=== PATIENT | male | born 1985 | race Caucasian/White ===

== ENCOUNTER 2019-03-20 20:14 | Emergency (ER) | payer OTHER ==
[~2019-03-20] VITALS: Ht 180.3 cm; Wt 102.3 kg
[2019-03-20 20:16] VITALS: BP 135/93
[2019-03-20] MEDS ORDERED: CLONI1TA PO (21:02)
[2019-03-20] MEDS ORDERED: TRUL10IN SC (21:02)
[2019-03-20] MEDS ORDERED: SERT-141 PO (21:02)
[2019-03-20] MEDS ORDERED: METF-699 PO (21:02)
[2019-03-20] MEDS ORDERED: AMLO25TA PO (21:02)
[2019-03-20] MEDS ORDERED: ASPI81TA85 PO (21:02)
[2019-03-20] MEDS ORDERED: FENO134C PO (21:02)
[2019-03-20] MEDS ORDERED: LISI-538 PO (21:02)
[2019-03-20] MEDS ORDERED: BASA100I SC (21:02)
[2019-03-20] MEDS ORDERED: GABA-845 PO (21:02)
[2019-03-20] MEDS ORDERED: TROPICAMIDE 0.5% OPHTH SOLN 15 ML OS ONE (21:15)
[2019-03-20] MEDS ORDERED: TETRACAINE 0.5% OPHTH SOLN 4ML OS ONE (21:15)
== END 2019-03-20 22:18 | disposition home or self-care (01) ==
LOC: M ED 20:14
DX: H53.9 Unspecified visual disturbance (principal); H43.9 Unspecified disorder of vitreous body; E11.319 Type 2 diabetes mellitus with unspecified diabetic retinopathy without macular edema; I10 Essential (primary) hypertension; E78.5 Hyperlipidemia, unspecified; Z97.0 Presence of artificial eye; Z88.8 Allergy status to other drugs, medicaments and biological substances; Z79.899 Other long term (current) drug therapy; Z79.4 Long term (current) use of insulin; Z79.82 Long term (current) use of aspirin

== ENCOUNTER → 2019-04-22 | Outpatient (REF) | payer OTHER, MEDICAID ==
[~2019-04-22] MED LIST: AMLO25TA PO; ASPI81TA85 PO; BASA100I SC; CLONI1TA PO; FENO134C PO; GABA-845 PO; LISI-538 PO; METF-699 PO; SERT-141 PO; TRUL10IN SC
[2019-04-22 11:37] LABS: BASO # 0.1 10^3/uL (0.0-0.2); BASO % 0.9 % (0.0-1.0); EOS # 0.6 10^3/uL (0.0-0.5); EOS % 4.7 % (0.0-3.0); HEMATOCRIT 40.6 % (42.0-52.0); HEMOGLOBIN 13.6 g/dl (13.5-17.5); LYMPH # 2.1 10^3/uL (1.5-5.0); LYMPH % 15.7 % (24.0-44.0); MEAN CORPUSCULAR HEMOGLOBIN 28.4 pg (27.0-33.0); MEAN CORPUSCULAR HGB CONC 33.5 g/dl (32.0-36.5); MEAN CORPUSCULAR VOLUME 84.8 fl (80.0-96.0); MONO % 7.5 % (0.0-5.0); NEUTROPHILS # 9.5 10^3/uL (1.5-8.5); NEUTROPHILS % 70.3 % (36.0-66.0); PLATELET COUNT, AUTOMATED 343 10^3/uL (150-450); RED BLOOD COUNT 4.79 10^6/uL (4.30-6.10); WHITE BLOOD COUNT 13.5 10^3/uL (4.0-10.0)
[2019-04-22 11:45] LABS: ALBUMIN 4.7 GM/DL (3.2-5.2); ALT/SGPT 53 U/L (12-78); BILIRUBIN,TOTAL 0.4 MG/DL (0.2-1.0); BLOOD UREA NITROGEN 25 MG/DL (7-18); CALCIUM LEVEL 9.5 MG/DL (8.5-10.1); CARBON DIOXIDE LEVEL 26 MEQ/L (21-32); CHLORIDE LEVEL 102 MEQ/L (98-107); CHOLESTEROL LEVEL 142 MG/DL (<200); CREATININE FOR GFR 1.56 MG/DL (0.70-1.30); FREE T4 1.17 NG/DL (0.76-1.46); GLOMERULAR FILTRATION RATE 55.2 (>60); GLUCOSE, FASTING 223 MG/DL (70-100); HDL CHOLESTEROL 20 MG/DL (>40); NON-HDL-C 122 MG/DL; POTASSIUM SERUM 4.7 MEQ/L (3.5-5.1); SODIUM LEVEL 138 MEQ/L (136-145); TOTAL PROTEIN 8.2 GM/DL (6.4-8.2); TRIGLYCERIDES LEVEL 413 MG/DL (<150)
[2019-04-22 12:18] LABS: HEMOGLOBIN A1c 7.9 %
[2019-04-22 16:06] LABS: TOTAL 25(OH) VITAMIN D 19.9 NG/ML (30.0-100.0)
[2019-04-24 00:06] LABS: Lyme Disease IgG/IgM Antibodie <0.91 ISR (0.00-0.90); Lyme Disease IgM Ab Quantitati <0.80 index (0.00-0.79)
== END ==
LOC: M LAB REF 11:03
PROVIDERS: ATTEND Family Medicine
DX: E11.9 Type 2 diabetes mellitus without complications (principal); Z13.228 Encounter for screening for other metabolic disorders

== ENCOUNTER → 2019-08-09 | Outpatient (REF) | payer OTHER, MEDICAID ==
[2019-08-09 14:10] LABS: BASO # 0.1 10^3/uL (0.0-0.2); BASO % 0.9 % (0.0-1.0); EOS # 1.2 10^3/uL (0.0-0.5); EOS % 8.6 % (0.0-3.0); HEMATOCRIT 42.7 % (42.0-52.0); HEMOGLOBIN 14.3 g/dl (13.5-17.5); LYMPH # 2.5 10^3/uL (1.5-5.0); LYMPH % 17.9 % (24.0-44.0); MEAN CORPUSCULAR HEMOGLOBIN 29.4 pg (27.0-33.0); MEAN CORPUSCULAR HGB CONC 33.5 g/dl (32.0-36.5); MEAN CORPUSCULAR VOLUME 87.7 fl (80.0-96.0); MONO # 0.9 10^3/uL (0.0-0.8); MONO % 6.5 % (0.0-5.0); NEUTROPHILS % 65.3 % (36.0-66.0); PLATELET COUNT, AUTOMATED 306 10^3/uL (150-450); RED BLOOD COUNT 4.87 10^6/uL (4.30-6.10); WHITE BLOOD COUNT 13.8 10^3/uL (4.0-10.0)
[2019-08-09 14:22] LABS: ALBUMIN 4.5 GM/DL (3.2-5.2); ALT/SGPT 74 U/L (12-78); BILIRUBIN,TOTAL 0.4 MG/DL (0.2-1.0); BLOOD UREA NITROGEN 30 MG/DL (7-18); CALCIUM LEVEL 9.6 MG/DL (8.5-10.1); CARBON DIOXIDE LEVEL 26 MEQ/L (21-32); CHLORIDE LEVEL 105 MEQ/L (98-107); CHOLESTEROL LEVEL 167 MG/DL (<200); CREATININE FOR GFR 2.23 MG/DL (0.70-1.30); FREE T4 1.47 NG/DL (0.76-1.46); GLOMERULAR FILTRATION RATE 36.5 (>60); GLUCOSE, FASTING 212 MG/DL (70-100); HDL CHOLESTEROL 20 MG/DL (>40); NON-HDL-C 147 MG/DL; POTASSIUM SERUM 4.9 MEQ/L (3.5-5.1); SODIUM LEVEL 137 MEQ/L (136-145); TOTAL PROTEIN 8.4 GM/DL (6.4-8.2); TRIGLYCERIDES LEVEL 703 MG/DL (<150)
[2019-08-09 14:24] LABS: TOTAL 25(OH) VITAMIN D 15.9 NG/ML (30.0-100.0)
[2019-08-09 14:32] LABS: HEMOGLOBIN A1c 7.6 %
[2019-08-09 14:54] LABS: MALB URINE SIEMENS 34.7 MG/L; MAU/CREAT RATIO 11.6 MCG/MG (0.0-30.0)
== END ==
LOC: M LAB REF 13:20
PROVIDERS: ATTEND Nurse Practitioner Family
DX: L20.9 Atopic dermatitis, unspecified (principal); K21.9 Gastro-esophageal reflux disease without esophagitis; E78.5 Hyperlipidemia, unspecified; D72.829 Elevated white blood cell count, unspecified; N28.9 Disorder of kidney and ureter, unspecified; H40.9 Unspecified glaucoma; E11.9 Type 2 diabetes mellitus without complications

== ENCOUNTER → 2019-09-01 | Outpatient (REF) | payer OTHER, MEDICAID ==
[2019-09-01 13:09] LABS: BASO # 0.1 10^3/uL (0.0-0.2); BASO % 0.9 % (0.0-1.0); EOS # 0.7 10^3/uL (0.0-0.5); EOS % 6.1 % (0.0-3.0); HEMATOCRIT 41.5 % (42.0-52.0); HEMOGLOBIN 14.2 g/dl (13.5-17.5); LYMPH # 1.9 10^3/uL (1.5-5.0); LYMPH % 16.7 % (24.0-44.0); MEAN CORPUSCULAR HEMOGLOBIN 30.2 pg (27.0-33.0); MEAN CORPUSCULAR HGB CONC 34.2 g/dl (32.0-36.5); MEAN CORPUSCULAR VOLUME 88.3 fl (80.0-96.0); MONO # 0.8 10^3/uL (0.0-0.8); MONO % 6.9 % (0.0-5.0); NEUTROPHILS # 7.8 10^3/uL (1.5-8.5); NEUTROPHILS % 68.7 % (36.0-66.0); PLATELET COUNT, AUTOMATED 285 10^3/uL (150-450); WHITE BLOOD COUNT 11.4 10^3/uL (4.0-10.0)
[2019-09-01 13:36] LABS: ALBUMIN 4.2 GM/DL (3.2-5.2); BILIRUBIN,TOTAL 0.3 MG/DL (0.2-1.0); CALCIUM LEVEL 9.4 MG/DL (8.5-10.1); CREATININE FOR GFR 1.74 MG/DL (0.70-1.30); GLOMERULAR FILTRATION RATE 48.6 (>60); POTASSIUM SERUM 5.2 MEQ/L (3.5-5.1); TOTAL PROTEIN 7.7 GM/DL (6.4-8.2)
== END ==
LOC: M LAB REF 12:07
PROVIDERS: ATTEND Nurse Practitioner Family
DX: N17.9 Acute kidney failure, unspecified (principal)

== ENCOUNTER → 2019-09-13 | Outpatient (CLI) | payer OTHER ==
--- NOTE | 2019-09-13 18:52 | REP ---
Clinical: Acute renal failure. Technique: Real time montgomery scale ultrasound examination using curved array transducer. Findings: The bilateral kidneys are normal in contour, size, echogenicity, and reniform shape. No hydronephrosis, nephrolithiasis, cystic or renal mass lesion appreciated. The bladder is unremarkable and without wall thickening or mass lesion. Right kidney measures 11.4 x 6.4 x 5.4 cm. Left kidney measures 11.5 x 5.8 x 6.5 cm. Impression: Normal renal ultrasound. Electronically Signed by Manny Salmeron MD 09/13/2019 06:44 P
== END ==
LOC: M RAD 14:51
PROVIDERS: ATTEND Internal Medicine Nephrology
DX: N17.9 Acute kidney failure, unspecified (principal)

== ENCOUNTER → 2020-04-24 | Outpatient (REF) | payer OTHER ==
[~2020-04-24] MED LIST changes: -ASPI81TA85 PO; +ASPI81TA86 PO; -METF-699 PO; +METF-817 PO
[2020-04-24 13:42] LABS: APPEARANCE, URINE HAZY (CLEAR); BACTERIA, URINE AUTO NEGATIVE (NEGATIVE); BILIRUBIN, URINE AUTO NEGATIVE (NEGATIVE); BLOOD, URINE BLOOD NEGATIVE (NEGATIVE); COLOR, URINE YELLOW (YELLOW); GLUCOSE, URINE (UA) AUTO NEGATIVE (NEGATIVE); KETONE, URINE AUTO NEGATIVE (NEGATIVE); LEUKOCYTE ESTERASE, URINE AUTO NEGATIVE (NEGATIVE); MUCUS, URINE SMALL (NEGATIVE); NITRITE, URINE AUTO NEGATIVE (NEGATIVE); PROTEIN, URINE AUTO NEGATIVE (NEGATIVE); RBC, URINE AUTO 1 /HPF (0-3); SPECIFIC GRAVITY URINE AUTO 1.026 (1.002-1.035); SQUAMOUS EPITHELIAL CELL UR AU 0 /HPF (0-6); UROBILINOGEN, URINE AUTO 0.2 mg/dL (0.0-2.0); WBC, URINE AUTO 1 /HPF (0-3)
[2020-04-24 17:48] LABS: BASO # 0.1 10^3/uL (0.0-0.2); EOS # 1.3 10^3/uL (0.0-0.5); EOS % 10.3 % (0.0-3.0); HEMATOCRIT 41.8 % (42.0-52.0); HEMOGLOBIN 14.5 g/dl (13.5-17.5); LYMPH # 2.2 10^3/uL (1.5-5.0); LYMPH % 17.8 % (24.0-44.0); MEAN CORPUSCULAR HEMOGLOBIN 30.7 pg (27.0-33.0); MEAN CORPUSCULAR HGB CONC 34.7 g/dl (32.0-36.5); MEAN CORPUSCULAR VOLUME 88.6 fl (80.0-96.0); MONO % 7.7 % (0.0-5.0); NEUTROPHILS # 7.7 10^3/uL (1.5-8.5); NEUTROPHILS % 62.4 % (36.0-66.0); PLATELET COUNT, AUTOMATED 285 10^3/uL (150-450); RED BLOOD COUNT 4.72 10^6/uL (4.30-6.10); WHITE BLOOD COUNT 12.4 10^3/uL (4.0-10.0)
[2020-04-24 18:07] LABS: HEMOGLOBIN A1c 7.3 %
[2020-04-24 18:28] LABS: ALBUMIN 4.5 GM/DL (3.2-5.2); ALT/SGPT 50 U/L (12-78); BILIRUBIN,TOTAL 0.4 MG/DL (0.2-1.0); BLOOD UREA NITROGEN 32 MG/DL (7-18); CALCIUM LEVEL 10.5 MG/DL (8.5-10.1); CARBON DIOXIDE LEVEL 28 MEQ/L (21-32); CHLORIDE LEVEL 102 MEQ/L (98-107); CHOLESTEROL LEVEL 267 MG/DL (<200); CREATININE FOR GFR 1.78 MG/DL (0.70-1.30); FREE T4 1.14 NG/DL (0.76-1.46); GLOMERULAR FILTRATION RATE 47.1 (>60); GLUCOSE, FASTING 158 MG/DL (70-100); HDL CHOLESTEROL 25 MG/DL (>40); NON-HDL-C 242 MG/DL; POTASSIUM SERUM 4.3 MEQ/L (3.5-5.1); SODIUM LEVEL 136 MEQ/L (136-145); TOTAL 25(OH) VITAMIN D 15.2 NG/ML (30.0-100.0); TOTAL PROTEIN 8.4 GM/DL (6.4-8.2); TRIGLYCERIDES LEVEL 1220 MG/DL (<150); URIC ACID 5.6 MG/DL (3.5-7.2)
== END ==
LOC: M LAB REF 12:57
PROVIDERS: ATTEND Nurse Practitioner Family
DX: M79.671 Pain in right foot (principal); R22.41 Localized swelling, mass and lump, right lower limb; E03.9 Hypothyroidism, unspecified; I10 Essential (primary) hypertension; N17.9 Acute kidney failure, unspecified; E78.5 Hyperlipidemia, unspecified; D72.829 Elevated white blood cell count, unspecified; E11.9 Type 2 diabetes mellitus without complications

== ENCOUNTER 2020-05-20 20:34 | Inpatient (IN) | payer MEDICARE, OTHER ==
[~2020-05-20] VITALS: Ht 182.9 cm; Wt 102.9 kg
[~2020-05-20 20:34] MED LIST changes: -LISI-538 PO; +LISI20TA33 PO
[2020-05-20] MEDS ORDERED: PANTOPRAZOLE 40MG VIAL (C9113 PER 1) IV ONE (20:45)
[2020-05-20] MEDS ORDERED: ONDANSETRON 4MG/2ML VIAL IV ONE (20:45)
[2020-05-20] MEDS ORDERED: NS 1,000 ML IV ONE ×2 (20:45→22:30)
[2020-05-20 21:08] LABS: BASO % 0.2 % (0.0-1.0); HEMATOCRIT 43.6 % (42.0-52.0); HEMOGLOBIN 15.1 g/dl (13.5-17.5); MEAN CORPUSCULAR HEMOGLOBIN 29.3 pg (27.0-33.0); MEAN CORPUSCULAR HGB CONC 34.6 g/dl (32.0-36.5); MEAN CORPUSCULAR VOLUME 84.7 fl (80.0-96.0); MONO # 1.5 10^3/uL (0.0-0.8); MONO % 5.8 % (0.0-5.0); NEUTROPHILS # 22.4 10^3/uL (1.5-8.5); NEUTROPHILS % 89.2 % (36.0-66.0); PLATELET COUNT, AUTOMATED 400 10^3/uL (150-450); RED BLOOD COUNT 5.15 10^6/uL (4.30-6.10)
[2020-05-20 21:10] LABS: WHITE BLOOD COUNT 25.1 10^3/uL (4.0-10.0)
[2020-05-20 21:25] LABS: INR 0.99; PROTHROMBIN TIME 13.3 SECONDS (12.5-14.3)
[2020-05-20] MEDS ORDERED: LEVO25TA5 PO (21:26)
[2020-05-20] MEDS ORDERED: ALLO100T PO (21:26)
--- NOTE | 2020-05-20 21:26 | REPVR ---
PROCEDURE INFORMATION: Exam: XR Complete Acute Abdomen Series Exam date and time: 05/20/2020 9:16 PM Age: 35 years old Clinical indication: Abdominal pain; Acute TECHNIQUE: Imaging protocol: XR complete acute abdomen series, including 2 or more views of the abdomen and a single view chest. COMPARISON: No relevant prior studies available. FINDINGS: Tubes, catheters and devices: External monitoring devices are present. Lungs: Normal. No consolidation. Pleural spaces: Normal. No pleural effusions. No pneumothorax. Heart/Mediastinum: Normal. No cardiomegaly. Gastrointestinal tract: No abnormally dilated bowel loops seen. Contrast noted within the in colon. No abnormally dilated bowel loops. There is a paucity of gas in the small bowel. Intraperitoneal space: No free air. Bones/joints: Normal. No acute fracture. Soft tissues: Normal. IMPRESSION: 1. Evidence of ileus, obstruction or free air Electronically signed by: Maria Luisa Butterfield On 05/20/2020 21:26:00 PM
[2020-05-20] MEDS ORDERED: HumuLIN R (REGULAR) INSULIN (NovoLIN R) **100U/ML** PER UNIT IV ONE ×2 (22:00→22:30)
[2020-05-20 22:04] LABS: ALBUMIN 4.3 GM/DL (3.2-5.2); BILIRUBIN,DIRECT 0.2 MG/DL (0.0-0.2); BILIRUBIN,TOTAL 0.6 MG/DL (0.2-1.0); CALCIUM LEVEL 9.8 MG/DL (8.5-10.1); CREATININE FOR GFR 2.24 MG/DL (0.70-1.30); GLOMERULAR FILTRATION RATE 36.1 (>60); POTASSIUM SERUM 4.3 MEQ/L (3.5-5.1); TOTAL PROTEIN 8.6 GM/DL (6.4-8.2)
[2020-05-20 23:57] LABS: RSV AMPLIFICATION NEGATIVE (NEGATIVE)
[2020-05-21] MEDS ORDERED: METOCLOPRAMIDE INJ 10MG/2ML VIAL (J2765 PER 1) IV ONE (00:45)
--- NOTE | 2020-05-21 01:00 | REPVR ---
PROCEDURE INFORMATION: Exam: CT Abdomen And Pelvis Without Contrast Exam date and time: 05/21/2020 12:41 AM Age: 35 years old Clinical indication: Abdominal pain; Additional info: Generalized abd pain, ckd, n/v TECHNIQUE: Imaging protocol: Computed tomography of the abdomen and pelvis without contrast. Radiation optimization: All CT scans at this facility use at least one of these dose optimization techniques: automated exposure control; mA and/or kV adjustment per patient size (includes targeted exams where dose is matched to clinical indication); or iterative reconstruction. COMPARISON: CR Abdomen,Flat Upright,PA CHEST 05/20/2020 8:46 PM FINDINGS: Mediastinal space: Wall thickening of the distal esophagus. Liver: Normal. No mass. Gallbladder and bile ducts: Normal. No calcified stones. No ductal dilation. Pancreas: Normal. No ductal dilation. Spleen: Normal. No splenomegaly. Adrenal glands: Normal. No mass. Kidneys and ureters: Small nonobstructing left renal calculus. Stomach and bowel: Much of the colon is collapsed or contracted with question of slight wall thickening from the mid descending colon to the rectum. Appendix: A normal appendix is seen. Intraperitoneal space: Unremarkable. No free air. No significant fluid collection. Vasculature: Unremarkable. No abdominal aortic aneurysm. Lymph nodes: Unremarkable. No enlarged lymph nodes. Urinary bladder: Unremarkable as visualized. Reproductive: Unremarkable as visualized. Bones/joints: Nonspecific sclerotic area in the lateral right 7th rib laterally. Soft tissues: Unremarkable. IMPRESSION: 1. Question of minimal nonspecific left colitis from the descending colon to the rectum. 2. Small nonobstructing left renal calculus. 3. Distal esophageal wall thickening which may reflect esophagitis. 4. Otherwise negative CT abdomen/pelvis. Electronically signed by: Alejandro Ramos On 05/21/2020 01:00:40 AM
[2020-05-21] MEDS ORDERED: CIPROFLOXACIN 400 MG in IV 1 EA IV ONE (01:45)
[2020-05-21] MEDS ORDERED: metroNIDAZOLE 500 MG in IV 1 EA IV ONE (01:45)
[2020-05-21] MEDS ORDERED: TRUL0.5I SC (02:08)
[2020-05-21] MEDS ORDERED: AMLO1TAB24 PO (02:08)
[2020-05-21] MEDS ORDERED: SERT-138 PO (02:08)
[2020-05-21] MEDS ORDERED: ECOT81TA5 PO (02:08)
[2020-05-21] MEDS ORDERED: GABA-282 PO (02:08)
[2020-05-21] MEDS ORDERED: ADME100I2 SC (02:10)
[2020-05-21] MEDS ORDERED: CLIN-30 PO (02:10)
[2020-05-21] MEDS ORDERED: INSU100I28 SC (02:10)
--- NOTE | 2020-05-21 05:12 | HPEPDOC ---
General Date of Admission Date of Service: May 21, 2020 Other Providers Kailee Roldan at [facility] Attending Physician: Hubert Salcedo MD Chief Complaint The patient is a 35-year-old male admitted with a reason for visit of Nausea/Vomitting. Source: Patient History of Present Illness Mr. Levy reports a three-day history of nausea vomiting and diarrhea. He reports he started vomiting the day before admission and estimates he's vomited 20-30 times in the last 24 hours. He is now having painful hiccups. Because he is not been feeling well he is also not been checking his blood glucose levels are taking his diabetes medication. Home Medications Scheduled Allopurinol (Allopurinol) 100 Mg Tablet, 200 MG PO DAILY, (Reported) Amlodipine Besylate (Amlodipine Besylate) 5 Mg Tablet, 5 MG PO DAILY, (Reported) Aspirin (Ecotrin) 81 Mg Tablet.dr, 81 MG PO DAILY, (Reported) Clindamycin HCl (Clindamycin HCl) 150 Mg Capsule, 150 MG PO TID, (Reported) STARTED 05/17/20 X 10 DAYS Clonidine Hcl (Clonidine HCl) 0.1 Mg Tablet, 0.1 MG PO BID, (Reported) Dulaglutide (Trulicity) 1.5 Mg/0.5 Ml Pen.injctr, 1.5 MG SC Q7D, (Reported) THURSDAY Fenofibrate,Micronized (Fenofibrate) 134 Mg Capsule, 134 MG PO QHS, (Reported) Gabapentin (Gabapentin) 300 Mg Capsule, 300 MG PO TID, (Reported) Insulin Glargine,Hum.rec.anlog (Semglee Pen) 100 Unit/Ml (3 Ml) Insuln.pen, 60 UNITS INJ QHS, (Reported) Insulin Lispro (Admelog Solostar) 100 Unit/1 Ml Insuln.pen, 1 DOSE INJ ASDIRECTED, (Reported) PER SLIDING SCALE Levothyroxine Sodium (Levothyroxine Sodium) 25 Mcg Tablet, 25 MCG PO DAILY, (Reported) Lisinopril (Lisinopril) 20 Mg Tablet, 20 MG PO BID, (Reported) Sertraline HCl (Sertraline HCl) 100 Mg Tablet, 100 MG PO DAILY, (Reported) Allergies Coded Allergies: atorvastatin (Verified Allergy, Intermediate, SWELLING, 03/20/19) Past Medical History Medical History Hypertension Hyperlipidemia Glaucoma Type 2 diabetes Depression Gout Chronic kidney disease Hypothyroidism Surgical History Enucleation of the right eye, 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 His mother is alive with a history of diabetes, chronic kidney disease, hyperlipidemia, and hypertension. He says has a brother who is alive with no known medical problems. He has a sister who is alive with hypothyroidism. He has no children. Social History * Smoker: Denies Alcohol: Denies Drugs: marijuana (he reports he smokes marijuana daily) A-FIB/CHADSVASC A-FIB History Current/History of A-Fib/PAF?: No Current PO Anticoag Therapy: No Review of Systems Constitutional: Reports: Malaise, Fatigue; Denies: Chills, Fever Pulmonary: Denies: Dyspnea, Cough Cardiovascular: Denies: Chest Pain, Palpitations Gastrointestinal: Reports: Nausea, Vomiting, Diarrhea Genitourinary: Denies: Dysuria, Retention Endocrine: Denies: Heat Intolerance, Cold Intolerance Neurological: Denies: Change in speech, Confusion Psych: Reports: Mood Normal Physical Examination General Exam: Positive: Alert, Cooperative, No Acute Distress (laying in the ER stretcher when I entered the room) Eye Exam: Positive: Conjunctiva & lids normal (the left eye), Sclera icteric (in the left eye) ENT Exam: Positive: Atraumatic, Mucous membr. moist/pink, Pharynx Normal Neck Exam: Positive: Supple; Negative: Lymphadenopathy Chest Exam: Positive: Clear to auscultation, Normal air movement Heart Exam: Positive: Rate Normal, Regular Rhythm, Normal S1, Normal S2; Negative: Murmurs, Rubs Abdomen Exam: Positive: BS Hypoactive, Soft, Tenderness (to palpation in the left upper and lower quadrants. There is no rebound tenderness.); Negative: Hepatospenomegaly Extremity Exam: Positive: Normal pulses; Negative: Edema Skin Exam: Positive: Nl turgor and temperature Neuro Exam: Positive: Normal Speech, Normal Tone Psych Exam: Positive: Mental status NL, Mood NL, Oriented x 3 Vital Signs Vital Signs Date Time Temp Pulse Resp B/P (MAP) Pulse Ox O2 Delivery O2 Flow Rate FiO2 05/21/20 03:55 99.6 05/21/20 03:15 104 18 126/66 (86) 97 Room Air Laboratory Data Labs 24H Laboratory Tests 2 05/20/20 20:42: Bedside Glucose (Misc Panel) 476H 05/20/20 20:51: Prothrombin Time 13.3, Prothromb Time International Ratio 0.99, Anion Gap 14, Glomerular Filtration Rate 36.1L, Osmolality 312H, Calcium Level 9.8, Total B ilirubin 0.6, Direct Bilirubin 0.2, Aspartate Amino Transf (AST/SGOT) 9, Alanine Aminotransferase (ALT/SGPT) 36, Alkaline Phosphatase 77, Total Protein 8.6H, Albumin 4.3, Albumin/Globulin Ratio 1.0, Lipase 225 05/20/20 20:52: Immature Granulocyte % (Auto) 0.8, Neutrophils (%) (Auto) 89.2H, Lymphocytes (%) (Auto) 4.0L, Monocytes (%) (Auto) 5.8H, Eosinophils (%) (Auto) 0.0, Basophils (%) (Auto) 0.2, Neutrophils # (Auto) 22.4H, Lymphocytes # (Auto) 1.0L, Monocytes # (Auto) 1.5H, Eosinophils # (Auto) 0.0, Basophils # (Auto) 0.0, Nucleated Red Blood Cells % (auto) 0.0 05/20/20 22:05: Bedside Glucose (Misc Panel) 432H 05/20/20 22:48: Influenza A Immunofluorescence NEGATIVE, Influenza B Immunofluorescence NEGATIVE 05/20/20 22:53: Urine Color YELLOW, Urine Appearance CLEAR, Urine pH 5.0, Urine Specific [place] 1.026, Urine Protein 1+H, Urine Glucose (UA) 3+H, Urine Ketones 1+H, Urine Blood NEGATIVE, Urine Nitrite NEGATIVE, Urine Bilirubin NEGATIVE, Urine Urobilinogen 0.2, Urine Leukocyte Esterase NEGATIVE, Urine WBC (Auto) 0, Urine RBC (Auto) 1, Urine Hyaline Casts (Auto) 0, Urine Bacteria (Auto) NEGATIVE, Urine Squamous Epithelial Cells 0, Urine Sperm (Auto) , Coronavirus (COVID-19)(PCR) NEGATIVE, Influenza Type A (RT-PCR) NEGATIVE, Influenza Type B (RT-PCR) NEGATIVE, Respiratory Syncytial Virus (PCR) NEGATIVE 05/20/20 23:13: Bedside Glucose (Misc Panel) 406H 05/21/20 00:34: Bedside Glucose (Misc Panel) 312H 05/21/20 02:46: Lactic Acid Level 0.9 05/21/20 03:48: Bedside Glucose (Misc Panel) 301H CBC/BMP Laboratory Tests 05/20/20 20:51 05/20/20 20:52 Microbiology Microbiology 05/21/20 Blood Culture, Received Pending 05/21/20 Blood Culture, Received Pending Problems (1) Colitis Status: Acute Problem Specific Plan: Monitor Clinically, Repeat Labs Problem Text: We'll admit him for IV Cipro and Flagyl. He has a history of noncompliance and he has been vomiting. Both reasons would suggest that being discharged on oral medications are not a good option for him at this time. (2) Acute kidney injury Status: Acute Problem Text: Probably related to his GI losses recently. I'll start him on IV fluids and will monitor. (3) Esophagitis Status: Acute Problem Text: This showed up on CT. I think it probably also underlies his recent painful hiccups. I believe this is likely related to his history of vomiting 20-30 times in the last 24 hours. I started him on IV omeprazole to provide a little relief to the area. I also prescribed IV Zofran for if he becomes nauseated again. (4) Type 2 diabetes mellitus with hyperglycemia Status: Chronic Problem Text: I started him back on his usual basal insulin of 60 units as well as an insulin sliding scale. I think once he is back on his medications his blood glucose levels will be better controlled. Plan / VTE VTE Prophylaxis Ordered?: Yes Plan Advanced Directives: Health Care Proxy (HCP) (he chooses not to identify a healthcare proxy at this time. He wishes to be FULL code.) Hubert Salcedo MD May 21, 2020 05:11
[2020-05-21] MEDS ORDERED: DEXTROSE 50% 50 ML SYRINGE IV PRN (05:15)
[2020-05-21] MEDS ORDERED: NS 1,000 ML IV SCH (05:15)
[2020-05-21] MEDS ORDERED: GLUCAGON INJ 1MG VIAL SC PRN (05:15)
[2020-05-21] MEDS ORDERED: GLUCOSE 4GM CHEW TABLET PO PRN (05:15)
[2020-05-21] MEDS ORDERED: CIPROFLOXACIN 400 MG in IV 1 EA IV SCH (06:00)
[2020-05-21] MEDS: ACETAMINOPHEN TAB 650MG DOSE (2X325MG) PO PRN ×2 (07:28→20:37)
[2020-05-21] MEDS: LEVOTHYROXINE 25MCG TABLET (0.025MG) PO SCH (07:28)
[2020-05-21] MEDS ORDERED: HumaLOG INSULIN (NovoLOG) PER UNIT SC SCH ×3 (07:30→21:00)
[2020-05-21] MEDS: HumaLOG INSULIN (NovoLOG) PER UNIT SC SCH ×3 (07:30→18:00)
[2020-05-21 07:50] LABS: BASO # 0.1 10^3/uL (0.0-0.2); BASO % 0.2 % (0.0-1.0); EOS # 0.1 10^3/uL (0.0-0.5); EOS % 0.2 % (0.0-3.0); HEMATOCRIT 39.6 % (42.0-52.0); HEMOGLOBIN 13.6 g/dl (13.5-17.5); LYMPH # 1.3 10^3/uL (1.5-5.0); MEAN CORPUSCULAR HEMOGLOBIN 29.8 pg (27.0-33.0); MEAN CORPUSCULAR HGB CONC 34.3 g/dl (32.0-36.5); MEAN CORPUSCULAR VOLUME 86.7 fl (80.0-96.0); MONO # 1.6 10^3/uL (0.0-0.8); MONO % 7.5 % (0.0-5.0); NEUTROPHILS # 17.7 10^3/uL (1.5-8.5); NEUTROPHILS % 85.3 % (36.0-66.0); RED BLOOD COUNT 4.57 10^6/uL (4.30-6.10)
[2020-05-21 08:13] LABS: PLATELET COUNT, AUTOMATED 295 10^3/uL (150-450); WHITE BLOOD COUNT 20.8 10^3/uL (4.0-10.0)
[2020-05-21 08:14] VITALS: BP 166/88
[2020-05-21 08:24] LABS: ALBUMIN 3.8 GM/DL (3.2-5.2); CALCIUM LEVEL 9.1 MG/DL (8.5-10.1); CREATININE FOR GFR 1.75 MG/DL (0.70-1.30); MAGNESIUM LEVEL 2.1 MG/DL (1.8-2.4); PHOSPHORUS LEVEL 2.8 MG/DL (2.5-4.9); POTASSIUM SERUM 3.6 MEQ/L (3.5-5.1)
[2020-05-21] MEDS: SERTRALINE 100 MG TAB PO SCH (08:36)
[2020-05-21] MEDS: allopurinoL 100 MG TAB PO SCH (08:36)
[2020-05-21] MEDS: GABAPENTIN 300 MG CAP PO SCH ×3 (08:36→20:35)
[2020-05-21] MEDS: ASPIRIN 81 MG ENTERIC TAB PO SCH (08:36)
[2020-05-21] MEDS: ONDANSETRON 4MG/2ML VIAL IV PRN ×2 (08:38→18:00)
[2020-05-21] MEDS: cloNIDine 0.1MG TABLET PO SCH ×2 (08:39→20:34)
[2020-05-21] MEDS: ENOXAPARIN 40MG/0.4ML SYRINGE (J1650 PER 10MG) SC SCH (08:39)
[2020-05-21] MEDS ORDERED: PANTOPRAZOLE 40MG VIAL (C9113 PER 1) IV SCH (09:00)
[2020-05-21] MEDS ORDERED: LEVEMIR (INSULIN DETEMIR) 1 UNITS/0.01ML SC SCH (09:00)
[2020-05-21] MEDS ORDERED: amLODIPine 5 MG TAB PO SCH (09:00)
[2020-05-21] MEDS: metroNIDAZOLE 500 MG in IV 1 EA IV SCH ×2 (11:54→20:36)
[2020-05-21] MEDS: CIPROFLOXACIN 400 MG in IV 1 EA IV SCH (13:37)
[2020-05-21 14:00] VITALS: BP 163/87
--- NOTE | 2020-05-21 16:11 | IPNPDOC ---
Text Note Date of Service The patient was seen on 05/21/20. NOTE Subjective: Patient continues to complain of lower quadrant abdominal pain ass ociated with with multiple hiccups Objective: GENERAL APPEARANCE: NAD HEENT: no scleral icterus, no JVD CARDIOVASCULAR: S1S2 LUNGS: CTA ABDOMEN: soft & mildly tender in the lower abdominal quadrants MUSCULOSKELETAL: no cyanosis, no swelling INTEGUMENT: no generalized pallor NEUROLOGICAL: cranial nerve function from 2-12 intact intact, follows commands, speech not dysarthric Assessment and plan Patient is 35 years old male with past history of type 2 diabetes, chronic kidney diseases, hypertension, hyperlipidemia presented to the hospital with nausea, vomiting and abdominal pain Enterocolitis CT showed Question of minimal nonspecific left colitis from the descending colon to the rectum. Small nonobstructing left renal calculus. Distal esophageal wall thickening which may reflect esophagitis. Continued ciprofloxacin IV and Flagyl IV Acute on chronic kidney injury Improved after volume resuscitation Continue to monitor Esophagitis Continue PPI IV Continue Zofran IV Carafate Type 2 diabetes Detemir Insulin sliding scale Diabetes diet VS,Fishbone, I+O VS, Fishbone, I+O Laboratory Tests 05/20/20 20:51 05/20/20 20:52 05/21/20 07:39 Vital Signs Date Time Temp Pulse Resp B/P (MAP) Pulse Ox O2 Delivery O2 Flow Rate FiO2 05/21/20 14:00 99.8 90 18 163/87 (112) 100 Room Air I&O- Last 24 Hours up to 6 AM 05/21/20 06:00 Intake Total 2300 ml Balance 2300 ml EUGENIO VICTORIA DO May 21, 2020 16:11
[2020-05-21] MEDS ORDERED: CALCIUM CARBONATE 500 MG CHEW U/D PO ONE (16:15)
[2020-05-21] MEDS: PANTOPRAZOLE 40MG VIAL (C9113 PER 1) IV SCH (20:34)
[2020-05-21] MEDS: CALCIUM CARBONATE 500 MG CHEW U/D PO PRN (20:34)
[2020-05-21 22:00] VITALS: BP 168/88
[2020-05-22] MEDS: CIPROFLOXACIN 400 MG in IV 1 EA IV SCH (01:35)
[2020-05-22] MEDS: ONDANSETRON 4MG/2ML VIAL IV PRN (02:51)
[2020-05-22] MEDS: CALCIUM CARBONATE 500 MG CHEW U/D PO PRN (02:51)
[2020-05-22] MEDS: metroNIDAZOLE 500 MG in IV 1 EA IV SCH ×2 (03:54→11:53)
[2020-05-22 06:00] VITALS: BP 127/81
[2020-05-22 06:41] LABS: BASO # 0.1 10^3/uL (0.0-0.2); BASO % 0.6 % (0.0-1.0); EOS # 1.9 10^3/uL (0.0-0.5); EOS % 11.1 % (0.0-3.0); HEMATOCRIT 35.3 % (42.0-52.0); HEMOGLOBIN 12.3 g/dl (13.5-17.5); LYMPH # 1.9 10^3/uL (1.5-5.0); LYMPH % 11.5 % (24.0-44.0); MEAN CORPUSCULAR HEMOGLOBIN 29.8 pg (27.0-33.0); MEAN CORPUSCULAR HGB CONC 34.8 g/dl (32.0-36.5); MEAN CORPUSCULAR VOLUME 85.5 fl (80.0-96.0); MONO # 1.4 10^3/uL (0.0-0.8); MONO % 8.3 % (0.0-5.0); NEUTROPHILS # 11.4 10^3/uL (1.5-8.5); PLATELET COUNT, AUTOMATED 242 10^3/uL (150-450); RED BLOOD COUNT 4.13 10^6/uL (4.30-6.10)
[2020-05-22] MEDS: LEVOTHYROXINE 25MCG TABLET (0.025MG) PO SCH (06:44)
[2020-05-22 06:45] LABS: WHITE BLOOD COUNT 16.7 10^3/uL (4.0-10.0)
[2020-05-22 07:07] LABS: ALBUMIN 3.3 GM/DL (3.2-5.2); BILIRUBIN,TOTAL 0.4 MG/DL (0.2-1.0); CALCIUM LEVEL 9.2 MG/DL (8.5-10.1); CREATININE FOR GFR 1.6 MG/DL (0.70-1.30); GLOMERULAR FILTRATION RATE 53.3 (>60); MAGNESIUM LEVEL 2.1 MG/DL (1.8-2.4); POTASSIUM SERUM 3.7 MEQ/L (3.5-5.1); TOTAL PROTEIN 6.8 GM/DL (6.4-8.2)
[2020-05-22] MEDS: HumaLOG INSULIN (NovoLOG) PER UNIT SC SCH ×2 (07:30→11:53)
[2020-05-22] MEDS: PANTOPRAZOLE 40MG VIAL (C9113 PER 1) IV SCH (08:19)
[2020-05-22] MEDS: SERTRALINE 100 MG TAB PO SCH (08:19)
[2020-05-22] MEDS: ASPIRIN 81 MG ENTERIC TAB PO SCH (08:19)
[2020-05-22] MEDS: allopurinoL 100 MG TAB PO SCH (08:19)
[2020-05-22] MEDS: GABAPENTIN 300 MG CAP PO SCH (08:20)
[2020-05-22] MEDS: ENOXAPARIN 40MG/0.4ML SYRINGE (J1650 PER 10MG) SC SCH (08:20)
[2020-05-22 08:21] VITALS: BP 136/84
[2020-05-22] MEDS: cloNIDine 0.1MG TABLET PO SCH (08:21)
[2020-05-22] MEDS ORDERED: SIMETHICONE 80MG CHEW TAB PO PRN (08:30)
[2020-05-22] MEDS ORDERED: LEVEMIR (INSULIN DETEMIR) 1 UNITS/0.01ML SC SCH (09:00)
[2020-05-22] MEDS ORDERED: CIPR-249 PO (10:50)
[2020-05-22] MEDS ORDERED: FLAG500T PO (10:50)
[2020-05-22] MEDS ORDERED: SIME80CH5 PO (11:01)
[2020-05-22] MEDS ORDERED: REGL10TA6 PO (11:19)
[2020-05-22] MEDS ORDERED: METOCLOPRAMIDE 10 MG TAB PO ONE (12:00)
--- NOTE | 2020-05-22 15:51 | DS.PDOC ---
Discharge Summary General Date of Admission May 21, 2020 at 05:12 Date of Discharge 05/22/20 Discharge Summary PROCEDURES PERFORMED DURING STAY: [None]. ADMITTING DIAGNOSES: Enterocolitis Acute on chronic kidney injury Esophagitis Type 2 diabetes DISCHARGE DIAGNOSES: Enterocolitis Acute on chronic kidney injury Esophagitis Type 2 diabetes COMPLICATIONS/CHIEF COMPLAINT: Acute Kidney Injury, Colitis. HISTORY OF PRESENT ILLNESS: Patient is 35 years old male with past history of type 2 diabetes, chronic kidney diseases, hypertension, hyperlipidemia presented to the hospital with nausea, vomiting and abdominal pain HOSPITAL COURSE: During hospital stay the following issues addressed Enterocolitis CT showed Question of minimal nonspecific left colitis from the descending colon to the rectum. Small nonobstructing left renal calculus. Distal esophageal wall thickening which may reflect esophagitis. Patient received treatment with ciprofloxacin IV and Flagyl IV Acute on chronic kidney injury Improved after volume resuscitation Continue to monitor Esophagitis Continue PPI IV Continue Zofran IV Carafate Type 2 diabetes Detemir Insulin sliding scale Diabetes diet DISCHARGE MEDICATIONS: Please see below. ALLERGIES: Please see below. PHYSICAL EXAMINATION ON DISCHARGE: VITAL SIGNS: Please see below. GENERAL APPEARANCE: NAD HEENT: no scleral icterus, no JVD CARDIOVASCULAR: S1S2 LUNGS: CTA ABDOMEN: soft & mildly tender in the lower abdominal quadrants MUSCULOSKELETAL: no cyanosis, no swelling INTEGUMENT: no generalized pallor NEUROLOGICAL: cranial nerve function from 2-12 intact intact, follows commands, speech not dysarthric LABORATORY DATA: Please see below. IMAGING: [facility] NAME: MAILE CRESPO DATE OF : 1985 BUSINESS NUMBER: [id number] AGE: 35 SEX: M REPORT #: [id number] ROOM: ED TECHNOLOGIST: ALEXANDRO DOCTOR: DARLIN CHAVEZ DO Ordered for Date&Time: 05/21/20 0035 cc: [~ rep ct ivnm] Service Date&Time: 05/21/20 0041 This report is in Signed status. Interpretation performed by [facility]. Thank you for having your radiology procedures performed at [facility] RADIOLOGY REPORT Date&Time printed: [~ rep prt dt last] [~ rep prt tm last] Page 2 of 2 [place] [id number] RADIOLOGY REPORT This report is in Signed status. Interpretation performed by [facility]. Thank you for having your radiology procedures performed at [facility] RADIOLOGY REPORT Date&Time printed: [~ rep prt dt last] [~ rep prt tm last] Page 1 of 2 PROCEDURE INFORMATION: Exam: CT Abdomen And Pelvis Without Contrast Exam date and time: 05/21/2020 12:41 AM Age: 35 years old Clinical indication: Abdominal pain; Additional info: Generalized abd pain, ckd, n/v TECHNIQUE: Imaging protocol: Computed tomography of the abdomen and pelvis without contrast. Radiation optimization: All CT scans at this facility use at least one of these dose optimization techniques: automated exposure control; mA and/or kV adjustment per patient size (includes targeted exams where dose is matched to clinical indication); or iterative reconstruction. COMPARISON: CR Abdomen,Flat Upright,PA CHEST 05/20/2020 8:46 PM FINDINGS: Mediastinal space: Wall thickening of the distal esophagus. Liver: Normal. No mass. Gallbladder and bile ducts: Normal. No calcified stones. No ductal dilation. Pancreas: Normal. No ductal dilation. Spleen: Normal. No splenomegaly. Adrenal glands: Normal. No mass. Kidneys and ureters: Small nonobstructing left renal calculus. Stomach and bowel: Much of the colon is collapsed or contracted with question of slight wall thickening from the mid descending colon to the rectum. Appendix: A normal appendix is seen. Intraperitoneal space: Unremarkable. No free air. No significant fluid collection. Vasculature: Unremarkable. No abdominal aortic aneurysm. Lymph nodes: Unremarkable. No enlarged lymph nodes. Urinary bladder: Unremarkable as visualized. Reproductive: Unremarkable as visualized. Bones/joints: Nonspecific sclerotic area in the lateral right 7th rib laterally. Soft tissues: Unremarkable. IMPRESSION: 1. Question of minimal nonspecific left colitis from the descending colon to the rectum. 2. Small nonobstructing left renal calculus. 3. Distal esophageal wall thickening which may reflect esophagitis. 4. Otherwise negative CT abdomen/pelvis. Electronically signed by: Miriam Ramos On 05/21/2020 01:00:40 AM DD: MIIRAM RAMOS MD 05/21/2040 DT: BECKI 05/21/2099 DS: JUSTINA 05/21/2099 [~ rep ct labl] PROGNOSIS: Fair ACTIVITY: [As tolerated]. DIET: Diabetes DISPOSITION: 01 Home, Self-Care. ITEMS TO FOLLOWUP ON ON OUTPATIENT: Follow-up with PCP, [facility] [employer] DISCHARGE CONDITION: [Stable]. TIME SPENT ON DISCHARGE: Greater than 30minutes. Vital Signs/I&Os Vital Signs Date Time Temp Pulse Resp B/P (MAP) Pulse Ox O2 Delivery O2 Flow Rate FiO2 05/22/20 08:21 84 136/84 05/22/20 06:00 97.4 17 96 Room Air I&O- Last 24 Hours up to 6 AM 05/22/20 06:00 Intake Total 2250 ml Output Total 1750 ml Balance 500 ml Laboratory Data Labs 24H Laboratory Tests 2 05/21/20 16:49: Bedside Glucose (Misc Panel) 224H 05/21/20 20:26: Bedside Glucose (Misc Panel) 213H 05/22/20 06:20: Immature Granulocyte % (Auto) 0.5, Neutrophils (%) (Auto) 68.0H, Lymphocytes (%) (Auto) 11.5L, Monocytes (%) (Auto) 8.3H, Eosinophils (%) (Auto) 11.1H, Basophils (%) (Auto) 0.6, Neutrophils # (Auto) 11.4H, Lymphocytes # (Auto) 1.9, Monocytes # (Auto) 1.4H, Eosinophils # (Auto) 1.9H, Basophils # (Auto) 0.1, Nucleated Red Blood Cells % (auto) 0.0, Anion Gap 8, Glomerular Filtration Rate 53.3L, Calcium Level 9.2, Magnesium Level 2.1, Total Bilirubin 0.4, Aspartate Amino Transf (AST/SGOT) 4L, Alanine Aminotransferase (ALT/SGPT) 22, Alkaline Phosphatase 52, Total Protein 6.8#, Albumin 3.3, Albumin/Globulin Ratio 0.9 05/22/20 11:29: Bedside Glucose (Misc Panel) 271H CBC/BMP Laboratory Tests 05/22/20 06:20 FSBS Laboratory Tests Test 05/21/20 16:49 05/21/20 20:26 05/22/20 11:29 Range/Units Bedside Glucose (Misc Panel) 224 213 271 70-105 MG/DL Microbiology Microbiology 05/21/20 Blood Culture - Preliminary, Resulted No growth after 24 hours . All specim... 05/21/20 Blood Culture - Preliminary, Resulted No growth after 24 hours . All specim... Discharge Medications Scheduled Allopurinol (Allopurinol) 100 Mg Tablet, 200 MG PO DAILY, (Reported) Amlodipine Besylate (Amlodipine Besylate) 5 Mg Tablet, 5 MG PO DAILY, (Reported) Aspirin (Ecotrin) 81 Mg Tablet.dr, 81 MG PO DAILY, (Reported) Ciprofloxacin HCl (Cipro) 500 Mg Tablet, 1 TAB PO BID Clonidine Hcl (Clonidine HCl) 0.1 Mg Tablet, 0.1 MG PO BID, (Reported) Dulaglutide (Trulicity) 1.5 Mg/0.5 Ml Pen.injctr, 1.5 MG SC Q7D, (Reported) THURSDAY Fenofibrate,Micronized (Fenofibrate) 134 Mg Capsule, 134 MG PO QHS, (Reported) Gabapentin (Gabapentin) 300 Mg Capsule, 300 MG PO TID, (Reported) Insulin Glargine,Hum.rec.anlog (Semglee Pen) 100 Unit/Ml (3 Ml) Insuln.pen, 60 UNITS INJ QHS, (Reported) Insulin Lispro (Admelog Solostar) 100 Unit/1 Ml Insuln.pen, 1 DOSE INJ ASDIRECTED, (Reported) PER SLIDING SCALE Levothyroxine Sodium (Levothyroxine Sodium) 25 Mcg Tablet, 25 MCG PO DAILY, (Reported) Lisinopril (Lisinopril) 20 Mg Tablet, 20 MG PO BID, (Reported) Metronidazole (Flagyl) 500 Mg Tablet, 500 MG PO BID Sertraline HCl (Sertraline HCl) 100 Mg Tablet, 100 MG PO DAILY, (Reported) Scheduled PRN Metoclopramide HCl (Reglan) 10 Mg Tablet, 10 MG PO Q6H PRN for NAUSEA Simethicone (Simethicone) 80 Mg Tab.chew, 80 MG PO Q6HP PRN for GAS PAIN Allergies Coded Allergies: atorvastatin (Verified Allergy, Intermediate, SWELLING, 03/20/19) EUGENIO VICTORIA DO May 22, 2020 15:51
[2020-05-22] MEDS ORDERED: METOCLOPRAMIDE 10 MG TAB PO PRN (17:00)
[2020-05-23] MEDS ORDERED: ZOLO100T PO (18:34)
[2020-05-23] MEDS ORDERED: ONDA4TAB6 PO (18:43)
[2020-05-23] MEDS ORDERED: PERC5TAB12 PO (18:43)
== END 2020-05-22 14:21 | disposition home or self-care (01) | DRG 392 ==
LOC: M ED 20:34 → M ED INP 05-21 05:12 → M MSPAV 05-21 08:15
PROVIDERS: ADMIT Family Medicine; ATTEND Internal Medicine
DX: K52.9 Noninfective gastroenteritis and colitis, unspecified (principal); N17.9 Acute kidney failure, unspecified; E11.22 Type 2 diabetes mellitus with diabetic chronic kidney disease; E11.65 Type 2 diabetes mellitus with hyperglycemia; K20.90 Esophagitis, unspecified without bleeding; I12.9 Hypertensive chronic kidney disease with stage 1 through stage 4 chronic kidney disease, or unspecified chronic kidney disease; E78.5 Hyperlipidemia, unspecified; H40.9 Unspecified glaucoma; F12.90 Cannabis use, unspecified, uncomplicated; F32.9 Major depressive disorder, single episode, unspecified; M10.9 Gout, unspecified; N18.9 Chronic kidney disease, unspecified; E03.9 Hypothyroidism, unspecified; Z79.4 Long term (current) use of insulin; Z79.82 Long term (current) use of aspirin; Z79.899 Other long term (current) drug therapy; Z20.822 Contact with and (suspected) exposure to COVID-19

== ENCOUNTER 2020-05-23 14:55 | Emergency (ER) | payer MEDICARE, OTHER ==
[~2020-05-23] VITALS: Ht 180.3 cm; Wt 101.0 kg
[~2020-05-23 14:55] MED LIST changes: +ADME100I2 SC; +ALLO100T PO; +AMLO1TAB24 PO; +CIPR-249 PO; +CLIN-30 PO; +ECOT81TA5 PO; +FLAG500T PO; +GABA-282 PO; +INSU100I28 SC; +LEVO25TA5 PO; +REGL10TA6 PO; +SERT-138 PO; +SIME80CH5 PO; +TRUL0.5I SC
[2020-05-23] MEDS ORDERED: NS 1,000 ML IV ONE (16:15)
[2020-05-23] MEDS ORDERED: MORPHINE 2 MG/ML 1ML VIAL (J2270) IV PRN (16:15)
[2020-05-23] MEDS ORDERED: ONDANSETRON 4MG/2ML VIAL IV ONE (16:15)
--- OUTSIDE RECORDS SUMMARY | 2020-05-23 16:26 | CCD ---
Author Author [facility] Organization [facility] Address Unknown Phone Unavailable Care Team Providers Care Plaster Helper Name Role Phone Lida HERNANDEZ DPM Unavailable Unavailable Lida HERNANDEZ DPM Unavailable Unavailable Lida HERNANDEZ DPM Unavailable Unavailable Lida HERNANDEZ DPM Unavailable Unavailable Lida HERNANDEZ DPM Unavailable Unavailable Lida HERNANDEZ DPM Unavailable Unavailable Lida HERNANDEZ DPM Unavailable Unavailable Lida HERNANDEZ DPM Unavailable Unavailable Lida HERNANDEZ DPM Unavailable Unavailable Lida HERNANDEZ DPM Unavailable Unavailable Lida HERNANDEZ DPM Unavailable Unavailable Lida HERNANDEZ DPM Unavailable Unavailable Lida HERNANDEZW DPM Unavailable Unavailable Lida HERNANDEZ DPM Unavailable Unavailable Lida HERNANDEZW DPM Unavailable Unavailable Lida HERNANDEZ DPM Unavailable Unavailable Lida HERNANDEZ DPM Unavailable Unavailable MAJAK, R EMERALD DPM Unavailable Unavailable MAJAK, R EMERALD DPM Unavailable Unavailable MAJAK, R EMERALD DPM Unavailable Unavailable MAJAK, R EMERALD DPM Unavailable Unavailable MAJAK, R EMERALD DPM Unavailable Unavailable MAJAK, R EMERALD DPM Unavailable Unavailable MAJAK, R EMERALD DPM Unavailable Unavailable MAJAK, R EMERALD DPM Unavailable Unavailable MAJAK, R EMERALD DPM Unavailable Unavailable MAJAK, R EMERALD DPM Unavailable Unavailable MAJAK, R EMERALD DPM Unavailable Unavailable MAJAK, R EMERALD DPM Unavailable Unavailable MAJAK, R EMERALD DPM Unavailable Unavailable BOBY, Delmy HALE MD Unavailable Unavailable BOBY, Delmy HALE MD Unavailable Unavailable BOBY, Delmy HALE MD Unavailable Unavailable BOBY, Delmy HAEL MD Unavailable Unavailable BOBY, Delmy HALE MD Unavailable Unavailable BOBY, Delmy HALE MD Unavailable Unavailable BOBY, Delmy HALE MD Unavailable Unavailable Delmy AGUILAR MD Unavailable Unavailable Delmy AGUILAR MD Unavailable Unavailable Delmy AGUILAR MD Unavailable Unavailable Delmy AGUILAR MD Unavailable Unavailable Delmy AGUILAR MD Unavailable Unavailable Delmy AGUILAR MD Unavailable Unavailable Delmy AGUILAR MD Unavailable Unavailable Delmy AGUILAR MD Unavailable Unavailable Delmy AGUILAR MD Unavailable Unavailable Delmy AGUILAR MD Unavailable Unavailable Delmy AGUILAR MD Unavailable Unavailable Delmy AGUILAR MD Unavailable Unavailable Delmy AGUILAR MD Unavailable Unavailable Delmy AGUILAR MD Unavailable Unavailable Delmy AGUILAR MD Unavailable Unavailable Delmy AGUILAR MD Unavailable Unavailable Delmy AGUILAR MD Unavailable Unavailable Delmy AGUILAR MD Unavailable Unavailable Delmy AGUILAR MD Unavailable Unavailable Delmy AGUILAR MD Unavailable Unavailable Delmy AGUILAR MD Unavailable Unavailable Delmy AGUILAR MD Unavailable Unavailable Delmy AGUILAR MD Unavailable Unavailable Delmy AGUILAR MD Unavailable Unavailable Delmy AGUILAR MD Unavailable Unavailable Delmy AGUILAR MD Unavailable Unavailable Delmy AGUILAR MD Unavailable Unavailable Delmy AGUILAR MD Unavailable Unavailable Delmy AGUILAR MD Unavailable Unavailable Delmy AGUILAR MD Unavailable Unavailable Delmy AGUILAR MD Unavailable Unavailable Delmy AGUILAR MD Unavailable Unavailable Delmy AGUILAR MD Unavailable Unavailable Delmy AGUILAR MD Unavailable Unavailable Delmy AGUILAR MD Unavailable Unavailable BOBYDelmy SANDOVAL MD Unavailable Unavailable BOBYDelmy Hinton MD Unavailable Unavailable BOBYDelmy SANDOVAL MD Unavailable Unavailable BOBYDelmy SANDOVAL MD Unavailable Unavailable BOBYDelmy SANDOVAL MD Unavailable Unavailable BOBYDelmy SANDOVAL MD Unavailable Unavailable BOBYDelmy Hinton MD Unavailable Unavailable BOBYDelmy SANDOVAL MD Unavailable Unavailable Delmy AGUILAR MD Unavailable Unavailable BOBYDelmy SANDOVAL MD Unavailable Unavailable Delmy AGUILAR MD Unavailable Unavailable BOBYDelmy SANDOVAL MD Unavailable Unavailable BOBYDelmy SANDOVAL MD Unavailable Unavailable BOBY, Delmy HALE MD Unavailable Unavailable BOBYDelmy Hinton MD Unavailable Unavailable BOBYDelmy SANDOVAL MD Unavailable Unavailable BOBYDelmy SANDOVAL MD Unavailable Unavailable Delmy AGUILAR MD Unavailable Unavailable Delmy AGUILAR MD Unavailable Unavailable Delmy AGUILAR MD Unavailable Unavailable Delmy AGUILAR MD Unavailable Unavailable Delmy AGUILAR MD Unavailable Unavailable Delmy AGUILAR MD Unavailable Unavailable Delmy AGUILAR MD Unavailable Unavailable Delmy AGUILAR MD Unavailable Unavailable Delmy AGUILAR MD Unavailable Unavailable Delmy AGUILAR MD Unavailable Unavailable Delmy AGUILAR MD Unavailable Unavailable Delmy AGUILAR MD Unavailable Unavailable Delmy AGUILAR MD Unavailable Unavailable Delmy AGUILAR MD Unavailable Unavailable Delmy AGUILAR MD Unavailable Unavailable Delmy AGUILAR MD Unavailable Unavailable Delmy AGUILAR MD Unavailable Unavailable Delmy AGUILAR MD Unavailable Unavailable Delmy AGUILAR MD Unavailable Unavailable Delmy AGUILAR MD Unavailable Unavailable Delmy AGUILAR MD Unavailable Unavailable Delmy AGUILAR MD Unavailable Unavailable Delmy AGUILAR MD Unavailable Unavailable Delmy AGUILAR MD Unavailable Unavailable DEVENDRA, YANPING Unavailable Unavailable Jamar, Kailee MEDICINE TECHNOLOGIST MEDICINE TECHNOLOGIST Unavailable Unavailable Jamar, A Kailee MEDICINE TECHNOLOGIST Unavailable Unavailable Jamar, A Kailee MEDICINE TECHNOLOGIST Unavailable Unavailable Jamar, A Kailee MEDICINE TECHNOLOGIST Unavailable Unavailable Jamar, A Kailee MEDICINE TECHNOLOGIST Unavailable Unavailable Jamar, A Kailee MEDICINE TECHNOLOGIST Unavailable Unavailable Jamar, A Kailee MEDICINE TECHNOLOGIST Unavailable Unavailable Jamar, A Kailee MEDICINE TECHNOLOGIST Unavailable Unavailable Jamar, A Kailee MEDICINE TECHNOLOGIST Unavailable Unavailable Jamar, A Kailee MEDICINE TECHNOLOGIST Unavailable Unavailable Jamar, A Kailee MEDICINE TECHNOLOGIST Unavailable Unavailable Jamar, A Kailee MEDICINE TECHNOLOGIST Unavailable Unavailable Jamar, A Kailee MEDICINE TECHNOLOGIST Unavailable Unavailable Jamar, A Kailee MEDICINE TECHNOLOGIST Unavailable Unavailable Jamar, A Kailee MEDICINE TECHNOLOGIST Unavailable Unavailable Jamar, A Kailee MEDICINE TECHNOLOGIST Unavailable Unavailable Jamar, A Kailee MEDICINE TECHNOLOGIST Unavailable Unavailable Jamar, A Kailee MEDICINE TECHNOLOGIST Unavailable Unavailable Jamar, A Kailee MEDICINE TECHNOLOGIST Unavailable Unavailable Jamar, A Kailee MEDICINE TECHNOLOGIST Unavailable Unavailable Jamar, A Kailee MEDICINE TECHNOLOGIST Unavailable Unavailable Jamar, A Kailee MEDICINE TECHNOLOGIST Unavailable Unavailable Jamar, A Kailee MEDICINE TECHNOLOGIST Unavailable Unavailable Jamar, A Kailee MEDICINE TECHNOLOGIST Unavailable Unavailable Jamar, A Kailee MEDICINE TECHNOLOGIST Unavailable Unavailable Jamar, A Kailee MEDICINE TECHNOLOGIST Unavailable Unavailable Jamar, A Kailee MEDICINE TECHNOLOGIST Unavailable Unavailable Jamar, A Kailee MEDICINE TECHNOLOGIST Unavailable Unavailable Jamar, A Kailee MEDICINE TECHNOLOGIST Unavailable Unavailable Re-disclosure Warning The records that you are about to access may contain information from federally-assisted alcohol or drug abuse programs. If such information is present, then the following federally mandated warning applies: This information has been disclosed to you from records protected by federal confidentiality rules (42 CFR part 2). The federal rules prohibit you from making any further disclosure of this information unless further disclosure is expressly permitted by the written consent of the person to whom it pertains or as otherwise permitted by 42 CFR part 2. A general authorization for the release of medical or other information is NOT sufficient for this purpose. The Federal rules restrict any use of the information to criminally investigate or prosecute any alcohol or drug abuse patient.The records that you are about to access may contain highly sensitive health information, the redisclosure of which is protected by Article 27-F of the [facility] Public Health law. If you continue you may have access to information: Regarding HIV / AIDS; Provided by facilities licensed or operated by the [facility] Office of Mental Health; or Provided by the [facility] Office for People With Developmental Disabilities. If such information is present, then the following [facility] mandated warning applies: This information has been disclosed to you from confidential records which are protected by state law. State law prohibits you from making any further disclosure of this information without the specific written consent of the person to whom it pertains, or as otherwise permitted by law. Any unauthorized further disclosure in violation of state law may result in a fine or group home sentence or both. A general authorization for the release of medical or other information is NOT sufficient authorization for further disc losure. Family History Family Member Name Family Member Gender Family Member Status Date o f Status Description Data Source(s) Unknown Unknown Problem [facility] (Dr. Kourtney Bee) Unknown Male Problem [facility] ([facility] Encounters Encounter Providers Location Date Indications Data Source(s ) Outpatient Attender: Kailee SHRESTHA 01/30/2020 08:5 0:[address] [facility] Outpatient Attender: Kailee SHRESTHA 01/25/2020 08:3 1:[address] [facility] Outpatient Attender: Kailee SHRESTHA 01/11/2020 06:5 9:[address] [facility] Outpatient Attender: Kailee SHRESTHA 01/11/2020 06:5 9:[address] [facility] Outpatient Attender: Kailee SHRESTHA 12/30/2019 11:3 8:[address] [facility] Outpatient Attender: Kailee SHRESTHA 12/29/2019 01:4 2:[address] [facility] Outpatient Attender: Kailee SHRESTHA 12/23/2019 05:2 6:[address] [facility] Outpatient Attender: Kailee SHRESTHA 12/20/2019 06:0 6:[address] [facility] Outpatient Attender: HENRIETTA SHRESTHA 12/15/2019 12:29:[address] [facility] Outpatient Attender: Kailee SHRESTHA 12/15/2019 12:2 9:01 PM EDT [facility] Outpatient Attender: HENRIETTA SHRESTHA 12/15/2019 12:28:[address] [facility] Outpatient Attender: HENRIETTA SHRESTHA FP 12/15/2019 12:28:[address] [facility] Outpatient Attender: Kailee SHRESTHA 12/15/2019 12:2 8:[address] [facility] Outpatient Attender: Kailee SHRESTHA 12/15/2019 11:5 0:[address] [facility] Outpatient Attender: HENRIETTA SHRESTHA 12/15/2019 10:35:01 A M EDT [facility] Outpatient Attender: HENRIETTA SHRESTHA FP 12/14/2019 09:22:01 A M EDT [facility] Outpatient Attender: Kailee GILLETTEP FP 12/12/2019 12:0 7:59 AM EDT [facility] Outpatient Attender: Kailee GILLETTEP FP 12/06/2019 10:0 5:01 PM EDT [facility] Outpatient Attender: HENRIETTA GILLETTEP FP 12/06/2019 10:05:00 P M EDT [facility] Outpatient Attender: Kailee GILLETTEP FP 11/23/2019 12:0 0:40 AM EDT [facility] Outpatient Attender: HENRIETTA GILLETTEP FP 11/19/2019 03:36:03 P M EDT [facility] Outpatient Attender: Kailee GILLETTEP FP 11/19/2019 03:3 4:59 PM EDT [facility] Outpatient Attender: HENRIETTA GILLETTEP FP 11/17/2019 07:40:00 A M EDT [facility] Outpatient Attender: HENRIETTA GILLETTEP FP 11/15/2019 12:30:02 P M EDT [facility] Outpatient Attender: HENRIETTA GILLETTEP FP 11/14/2019 10:11:01 A M EDT [facility] Outpatient Attender: Kailee GILLETTEP FP 11/11/2019 05:1 1:01 PM EDT [facility] Outpatient Attender: HENRIETTA GILLETTEP FP 11/08/2019 09:53:00 A M EDT [facility] Outpatient Attender: HENRIETTA GILLETTEP FP 11/07/2019 12:45:00 P M EDT [facility] Outpatient Attender: Kailee GILLETTEP FP 11/04/2019 03:5 7:00 PM EDT [facility] Outpatient Attender: HENRIETTA GILLETTEP FP 11/04/2019 03:54:00 P M EDT [facility] Outpatient Attender: Kailee GILLETTEP FP 11/02/2019 01:2 8:00 PM EDT [facility] Outpatient Attender: Kailee GILLETTEP FP 10/31/2019 01:5 8:00 AM EDT [facility]patient Attender: Kailee GILLETTEP FP 10/25/2019 10:4 8:01 PM EDT [facility]patient Attender: HENRIETTA GILLETTEP FP 10/25/2019 02:50:00 P M EDT [facility] Outpatient Attender: Kailee GILLETTEP FP 10/12/2019 07:2 0:01 PM EDT [facility] Outpatient Attender: HENRIETTA GILLETTEP FP 10/12/2019 01:40:00 P M EDT [facility] Outpatient Attender: Kailee GILLETTEP FP 09/30/2019 07:4 6:01 AM EDT [facility]patient 09/27/2019 05:31:00 AM EDT [facility] Outpatient Attender: Kailee GILLETTEP FP 09/15/2019 11:2 9:00 AM EDT [facility]patient Attender: Kailee GILLETTEP FP 09/11/2019 11:4 9:01 PM EDT [facility] Outpatient Attender: HENRIETTA GILLETTEP FP 09/11/2019 11:48:59 P M EDT [facility] Outpatient Attender: HENRIETTA GILLETTEP FP 09/06/2019 01:40:00 P M EDT [facility] Outpatient Attender: Kailee GILLETTEP FP 09/04/2019 07:4 7:59 PM EDT [facility]patient Attender: Kailee GILLETTEP FP 09/01/2019 06:4 6:01 PM EDT [facility] Outpatient Attender: HENRIETTA GILLETTEP FP 09/01/2019 07:51:23 A M EDT [facility] Outpatient Attender: Kailee SHRESTHA FP 08/31/2019 06:5 9:00 PM EDT [facility] Outpatient Attender: HENRIETTA GILLETTEP FP 08/31/2019 06:54:02 P M EDT [facility] Outpatient Attender: Kailee SHRESTHA FP 08/31/2019 06:5 3:01 PM EDT [facility] Outpatient Attender: HENRIETTA SHRESTHA FP 08/30/2019 03:27:00 P M EDT [facility]patient Attender: Kailee GILLETTEP FP 08/24/2019 11:0 9:00 PM EDT [facility] Outpatient Attender: HENRIETTA GILLETTEP FP 08/24/2019 12:44:00 P M EDT [facility] Outpatient Attender: HENRIETTA GILLETTEP FP 08/22/2019 09:31:01 A M EDT [facility] Outpatient Attender: Kailee GILLETTEP FP 08/19/2019 04:4 8:00 PM EDT [facility] Outpatient Attender: HENRIETTA GILLETTEP FP 08/18/2019 02:56:00 P M EDT [facility] Outpatient Attender: HENRIETTA GILLETTEP FP 08/16/2019 01:34:03 P M EDT [facility] Outpatient Attender: HENRIETTA Roldan MEDICINE TECHNOLOGIST FP 08/16/2019 01:34:03 P M EDT [facility] Outpatient Attender: Kailee GILLETTEP FP 08/16/2019 01:3 4:02 PM EDT [facility] Outpatient Attender: HENRIETTA GILLETTEP FP 08/15/2019 11:26:00 A M EDT [facility] Outpatient Attender: Kailee GILLETTEP FP 08/13/2019 11:5 9:00 PM EDT [facility] Outpatient Attender: HENRIETTA GILLETTEP FP 08/11/2019 11:33:02 P M EDT [facility]patient Attender: Kailee GILLETTEP FP 08/11/2019 11:3 3:01 PM EDT [facility]patient Attender: Kailee GILLETTEP FP 08/11/2019 05:0 7:01 PM EDT [facility] Outpatient Attender: Kailee GILLETTEP FP 08/11/2019 03:2 7:01 PM EDT [facility] Outpatient Attender: HENRIETTA Roldan MEDICINE TECHNOLOGIST FP 08/09/2019 09:31:00 A M EDT [facility] Outpatient Attender: HENRIETTA GILLETTEP FP 08/09/2019 09:30:01 A M EDT [facility] Outpatient Attender: Kailee SHRESTHA FP 08/08/2019 12:5 2:59 AM EDT [facility] Outpatient Attender: HENRIETTA GILLETTEP FP 08/02/2019 04:19:59 P M EDT [facility] Outpatient Attender: HENRIETTA GILLETTEP FP 08/02/2019 02:36:[address] [facility] Outpatient Attender: Kailee Jamar SHRESTHA FP 07/13/2019 11:2 5:[address] [facility] Outpatient Attender: HENRIETTA Jamar HENRIETTA FP 06/29/2019 11:56:[address] [facility] Outpatient Attender: Kailee Roldan MEDICINE TECHNOLOGIST FP 06/27/2019 07:5 5:[address] [facility]patient Attender: Kailee Roldan MEDICINE TECHNOLOGIST FP 06/26/2019 11:3 7:[address] [facility] Outpatient Attender: MEDICINE TECHNOLOGIST Jamar MEDICINE TECHNOLOGIST FP 06/21/2019 04:21:[address] [facility] Outpatient Attender: HENRIETTA SHRESTHA FP 06/16/2019 08:58:29 A [facility] Outpatient Attender: OLEGARIO RAMSAY 06/09/2019 12:00:00 AM [facility] Outpatient Attender: ALEXIA AGUILAR MD FP 05/29/2019 12:12:00 P [facility] Outpatient Attender: ALEXIA AGUILAR MD FP 05/17/2019 09:34:00 P [facility] Outpatient Attender: ALEXIA AGUILAR MD FP 05/13/2019 12:03:00 P [facility] Outpatient Attender: ALEXIA AGUILAR MD FP 05/12/2019 04:36:01 P [facility] Outpatient Attender: ALEXIA AGUILAR MD FP 05/12/2019 04:32:01 P [facility] Outpatient Attender: ALEXIA AGUILAR MD FP 05/12/2019 02:18:01 P [facility] Outpatient Attender: ALEXIA AGUILAR MD FP 05/12/2019 11:21:59 A [facility] Outpatient Attender: ALEXIA AGUILAR MD FP 05/12/2019 11:20:40 A [facility] Outpatient Attender: EMERALD HERNANDEZ [facility] 04/14 02:30:00 PM [facility] Attender: ALEXIA AGUILAR MD FP 05/03/2019 01:15:01 P [facility] Outpatient Attender: ALEXIA AGUILAR MD FP 05/02/2019 10:03:01 A [facility] Outpatient Attender: ALEXIA AGUILAR MD 04/29/2019 08:10:01 A [facility] Outpatient Attender: ALEXIA AGUILAR MD 04/26/2019 11:22:02 A [facility] Outpatient Attender: ALEXIA AGUILAR MD 04/22/2019 10:28:01 A [facility] Outpatient Attender: ALEXIA AGUILAR MD 04/22/2019 10:21:01 A [facility] Outpatient Attender: ALEXIA AGUILAR MD 04/22/2019 10:20:01 A [facility] Outpatient Attender: ALEXIA AGUILAR MD 04/22/2019 09:10:01 A [facility] Outpatient Attender: ALEXIA AGUILAR MD 04/22/2019 09:09:01 A [facility] Outpatient Attender: ALEXIA AGUILAR MD 04/21/2019 10:12:01 A [facility] Outpatient Attender: ALEXIA AGUILAR MD 04/20/2019 04:30:00 P [facility] Outpatient Attender: ALEXIA AGUILAR MD 04/20/2019 10:58:01 A [facility] Outpatient Attender: ALEXIA AGUILAR MD 04/19/2019 10:43:00 A [facility] Outpatient Attender: ALEXIA AGUILAR MD 04/09/2019 09:04:01 A [facility] Outpatient Attender: EMERALD HERNANDEZ [facility] 03/13 09:45:00 AM EST [facility] ([facility] Medications Medication Brand Name Start Date Product Form Dose Route Admi nistrative Instructions Pharmacy Instructions Status Indications Reaction Description Data Source(s) Ketoconazole 20 MG/ML Topical Cream Ketoconazole 05/11/2019 12:00:00 AM EST active [facility] ([facility] Cimetidine 300 MG Oral Tablet Cimetidine 03/28/2019 12:00:00 AM EST ORAL active [facility] ([facility] Fluorouracil 50 MG/ML Topical Cream [Efudex] Efudex 12:00:00 AM EST active [facility] ( [facility] 24 HR Metformin hydrochloride 500 MG Ext ended Release Oral Tablet metformin (GLUCOPHAGE XR) 500 MG 24 hr tablet metformin (GLUCOPHAGE XR) 500 MG 24 hr tablet 08/16/2018 12:00:00 AM EDT 500 mg Oral active Take 1 tablet by mouth Two Times Daily [facility] Rosuvastatin calcium 5 MG Oral Tablet rosuvastatin (CR ESTOR) 5 MG tablet rosuvastatin (CRESTOR) 5 MG tablet 08/16/2018 12:00:00 AM EDT 5 mg Oral active Take 1 tablet by mouth daily [facility] Insurance Providers Payer name Policy type / Coverage type Policy ID Covered democrat ID Covered democrat's relationship to tyson Policy [employer] Plan Information DONALD [id number] SP [id number] Managed Care Donald P [id number] S [id number] Medicaid S [id number] S [id number] [place] [id number] S [id number] MEDICAID [id number] SP [id number] Managed Care [place] [id number] S [id number] Managed Care Donald P [id number] S [id number] Medicaid S [id number] S [id number] DONALD I [id number] Self [id number] [place] [id number] Self [id number] [place] Part B [id number] Self [id number] [place] [id number] Self [id number] SELF PAY DONALD [id number] SP [id number] [place]ig[place] B [id number] Self [id number] [place] [id number] Self [id number] [place] [id number] Self [id number] SELF PAY DONALD [id number] SP [id number] 300 [place] [id number] Self [id number] [place] [id number] Self [id number] Medicaid [place] Medigap Part B [id number] Self [id number] [place] [id number] Self [id number] [place] [id number] Self [id number] SELF PAY DONALD [id number] SP [id number] [place] [id number] Self [id number] Medicaid [place] Medigap Part B [id number] Self [id number] [place] [id number] Self [id number] MEDICAID GME [id number] S [id number] DONALD CARE HEA [id number] S [id number] [place] [id number] Self [id number] DONALD CARE HEA [id number] S [id number] Medicaid [place] Adult [place] Part B [id number] Self [id number] [place] [id number] Self [id number] Medicaid [place] Unit[place] Part B [id number] Self [id number] [place] [id number] Self [id number] [place] [id number] Self [id number] [place] Commercial [id number] Self [id number] [place] Commercial [id number] Self [id number] [place] Commercial [id number] Self [id number] [place] Commercial [id number] Self [id number] [place] Commercial [id number] Self [id number] [place] Commercial [id number] Self [id number] Medicaid [place] Medigap Part B [id number] Self [id number] [place] Commercial [id number] Self [id number] [place] Commercial [id number] Self [id number] Medicaid [place] Medigap Part B [id number] Self [id number] [place] Commercial [id number] Self [id number] Medicaid [place] Medigap Part B [id number] Self [id number] [place] [id number] Self [id number] [place] Commercial [id number] Self [id number] [place] [id number] Self [id number] [place] [id number] Self [id number] MEDICAID [id number] Ursula [id number] [place] [id number] Self [id number] [place] [id number] Self [id number] DONALD [id number] SP [id number] [place] [id number] Self [id number] [place] [id number] Self [id number] [place] [id number] Self [id number] [place] [id number] Self [id number] [place] [id number] Self [id number] [place] Commercial Self [facility] [id number] Self [id number] [facility] MEDICAID [id number] Ursula [id number] MEDICAID [id number] Ursula [id number] Problems, Conditions, and Diagnoses Code Display Name Description Problem Type Effective Dates Data Source(s) 300.09 Anxiety depression Anxiety depression 0 12:27:[address] [facility] 729.5 Pain in right foot Pain in right foot 0 03:34:[address] [facility] R22.41 Localized swelling, mass and lump, right lower limb Localized swelling on foot, right 11/19/2019 03:34:[address] [facility] [id number] Hypothyroidism, unspecified Hypothyroidism, unspecifie d 08/31/2019 06:52:[address] [facility] 401.9 Essential hypertension Essential hypertension 08/16/2019 01:33:[address] [facility] N17.9 Acute kidney failure, unspecified Acute kidney failure , unspecified 08/16/2019 01:33:[address] [facility] V65.8 Person consulting for explanation of exa mination or test findings Person consulting for explanation of examination or test findings [id number] Atopic dermatitis, unspecified Atopic dermatitis, unsp ecified 08/02/2019 04:18:[address] [facility] V70.0 Encounter for general adult medical exam ination with abnormal findings Encounter for general adult medical examination with abnormal findings 08/02/2019 04:18:[address] [facility] F12.90 Cannabis use, unspecified, uncomplicated Cannabis use, unspecified, uncomplicated 08/02/2019 04:18:[address] [facility] 530.81 GERD GERD 06/29/2019 11:55:[address] [facility] 272.4 Hyperlipidemia Hyperlipidemia 06/29/2019 11:55: [address] [facility] [id number] Tinea pedis Tinea pedis Problem 05/15/2019 12:00:00 AM EST [facility] ([facility] 288.60 Leukocytosis Leukocytosis 05/12/2019 04:30:04 P M [facility] 593.9 Renal insufficiency Renal insufficiency 020 04:30:04 PM [facility] [id number] Pain in limb Pain in limb Problem 03/28/2019 12:00:00 A M EST [facility] Type 2 diabetes mellitus with diabetic p olyneuropathy Type 2 diabetes mellitus with diabetic polyneuropathy Problem 03/28/2019 12:00:00 AM EST [facility] ([facility] Corns and callosities Corns and callosities Problem 03/28/2019 12:00:00 AM EST [facility] ([facility] [id number] Verruca plantaris Verruca plantaris Problem 03/28/2019 12:00:00 AM EST [facility] ([facility] Surgeries/Procedures Procedure Description Date Indications Data Source(s) DESTRUCTION BENIGN LESIONS UP TO 14 05/11/2019 12:00:0 0 AM EST [facility] ([facility] PARING/CUTTING BENIGN HYPERKERATOTIC LESION 2-4 2018 12:00:00 AM EST [facility] ([facility] DESTRUCTION BENIGN LESIONS UP TO 14 03/28/2019 12:00:0 0 AM EST [facility] ([facility] Results ID Date Data Source [id number] 05/20/2020 10:53:00 PM EST [facility] Name Value Range Interpretation Code Description Data Cary rce(s) Supporting Document(s) SARS coronavirus 2 RNA [Presence] in Res piratory specimen by MELINDA with probe detection NEGATIVE [facility] This lab was ordered by [facility] a nd reported by [facility]. ID Date Data Source [id number] 12/15/2019 10:49:[address] [facility] Measurements & CalculationsHeight: 67 inches (5 ft. 7 in.) 170.18 cm Weight: 234 pounds 6 oz. 106.54 kg Body Mass Index (BMI): 36.84BMI Interpretation: ObeseBody Surface Area (BSA): 2.17Weight Management Education Done (Nutrition/Physical Activity)Vital SignsTemperature: 98.1FPulse Rate: 95 beats/minuteRespiratory Rate: 13 respirat ions/minuteBlood Pressure: 124/86 O2 Saturation: 98% Vital Signs performed by: Salima Dowd LPN, December 15, 2019 10:49 AMVital Signs performed by: Salima Dowd LPN, December 15, 2019 10:49 AMInitial Intake Information From: patientRoom #: 8Infectious Disease / Travel ScreeningRecent travel for you or any close contacts? NoHave you had any close contact with anyone diagnosed with or under investigation for COVID-19 (coronavirus)? NoFever? NoRespiratory symptoms: cough, cold, congestion, shortness of breath, difficulty breathing? NoLoss of smell? NoLoss of taste? NoSmoking, Tobacco, Vaping or Smoke Exposure StatusSmoke Status: never smokerTobacco Use: NoDo you vape? NoPassive Smoke Exposure: YesPassive Smoke Exposure comments: famiily Healthcare HistorySince your last office visit...Have you been admitted to the hospital? NoHave you been to an emergency room (ER) or urgent care clinic? NoHave you seen another healthcare provider? Yes - Dr munoz,Dr hernandez Have you seen a dentist? NoIntake performed by: Salima Dowd LPN, December 15, 2019 10:57 AMRate Your HealthIn general, would you say your health is? GoodPain AssessmentAre you currently having any pain which... You would like your provider to address? No Affects your activity level? NoDepression Screening - PHQ-2Over the last two weeks, have you... Had little interest or pleasure in doing things? Not at all Been feeling down, depressed, or hopeless? Not at all PHQ-2 Score: 0Anxiety Screening - SERGEY-2Over the last two weeks, have you been... Feeling nervous, anxious, or on edge? Nearly every day Unable to stop or control worrying? Several days SERGEY-2 Score: 4Food InsecurityWithin the past year...Did you worry whether your food would run out before you got money to buy more? Never trueWas there a time when the food you bought didn't last and you didn't have money to get more? Never trueGeneralized Anxiety Disorder 7- Item Screening (SERGEY-7)Answer Guide:0 = Not at all1 = Several days2 = Over half the days3 = Nearly every dayOver the last 2 weeks, how often have you been bothered by the following problems?Feeling nervous, anxious, or on edge: 3Not being able to stop or control worryinWorrying too much about different things: 2Trouble relaxinBeing so restless that it's hard to sit still: 2Becoming easily annoyed or irritable: 0Feeling afraid as if something awful might happen: 0Answer Guide:0 = Not difficult at all1 = Somewhat difficult2 = Very difficult3 = Extremely difficultHow difficult have these made it for you to do your work, take care of things at home, or get along with other people? 0GAD-7 Screening Results SERGEY-2 Score: 4GAD-7 Score: 10Functional Impairment: Not difficult at allRecommendation: Moderate anxietyScreening, Brief Intervention, & Referral to Treatment (SBIRT)Pre-Screening Questions How many times have you have 5 or more drinks in a day? 0How many times have you used an illegal drug or used a prescription medication for a non-medical reason? 0Performed by: Salima Dowd LPN, December 15, 2019 11:04 AMPatient History Medical History:Diabetes Type IIDepressionAnxietyHigh cholesterolHypertensionHypothyroidismGlacomaSurgical History:R Eye Removal - Due to DiabetesLaser SurgeryFamily History:Diabetes (Mother)Hypertension (Mother, Father)Heart disease (Father)High cholesterol (Mother, Father)Hx of cancer, unsure of the type Social/Personal History: Chief Complaintfollow-up visit lab results room 8History of Present Illness (HPI)34 YO male here for ffollow up on labs needs refills. 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 Pt states have been taking medications as prescribed. Pt states healthy diet and physical activities. Pt states increased anxiety. Pt would like a referral for therapy. Pt states concerns of loosing his right eye is causing increase anxiety. Pt denies other concerns at this time. HPI performed by: Kailee SHRESTHA, December 15, 2019 11:53 AMTransitions of Care InboundProblem ReviewProblem List was reviewed and/or updated during this visit.Medication Reconciliation & ReviewMedication List was reviewed and/or updated during this visit, including review of any ehmp-erv-ovivksf medications, herbal therapies, and/or supplements.Allergy ReviewAllergy List was reviewed and/or updated during this visit.Adult Preventive CareProvider Calculated and Reviewed all Clinical Protocols for patient today. Labs/Meds/Other Counseling- Nutrition and Physical Activity:BMI Interpretation: Obese (12/15/2019) Counseling: Done (12/15/2019) Physical Activity: Done (12/15/2019)Review of Systems General: Denies loss of appetite, chills, dizziness, fatigue, fever, continued fever, headache, feeling ill, sweats, night sweats, sleep disturbances, weight loss. Eyes: Complains of blurring of vision. Ears/Nose/Throat: Denies earache, ear discharge, ringing in ears, decreased hearing, nasal congestion, nosebleeds, runny nose, sore throat, hoarseness, difficulty swallowing, dry mouth, tooth pain, bleeding gums, swollen glands. Cardiovascular: Denies chest pain, palpitations, feeling faint, trouble breathing w/exertion, SOB upon lying down, SOB at night, peripheral edema, elevated blood pressure, decreased heart rate. Respiratory: Denies cough, difficulty breathing, shortness of breath, excessive sputum, coughing up blood, wheezing, chest pain. Gastrointestinal: Denies nausea, vomiting, bleeding, burning, itching, irritation, cramps, diarrhea. Genitourinary: Denies urinary incontinence, pain with urination, burning with urination, urinary frequency, urinary hesitancy, urinary urgency, urinary urgency at night, incomplete emptying, blood in urine. Musculoskeletal: Denies back pain, joint pain, leg pain, other pain-see comments, joint swelling, body aches, muscle aches, muscle cramps, muscle weakness, stiffness, recent injury. Skin: Denies rash, hives, redness, itching, dryness, nail changes, suspicious lesions, athlete's foot, rash on palms, rash on bottom of feet. Neurologic: Denies muscle impairment, weakness, numbness/tingling, seizures, slurred speech, feeling faint, tremors, vertigo, paralysis on one side, paralysis on both sides. Psychiatric: Denies depression, anxiety, memory loss, mental disturbance, suicidal ideation, homicidal ideation, hallucinations, paranoia, feeling stressed, hearing voices. Endocrine: Denies cold intolerance, heat intolerance, excessive thirst, excessive hunger, excessive urination, weight loss, weight gain. Physical ExamGeneral Appearance: well nourished, well hydrated, no acute distressEyes, External: conjunctivae and lids normal, EOMIRespiratory, Auscultation: clear to auscultation bilaterally; no rales, rhonchi, or wheezesRespiratory, Effort: no intercostal retractions or use of accessory musclesCardiovascular, Auscultation: S1, S2 audible; no murmur, rub, or gallop; RRRPeripheral Circulation: no clubbing, cyanosis, edema, or varicositiesAbdomen: soft, non-tender, no masses, bowel sounds normalGait & Station: normalSkin, Inspection: no rashes, lesions, or ulcerationsOrientation: oriented to time, place, and personMood & Affect: no depression, anxiety, or agitationJudgment & Insight: intactCare Management Plan Transitions of CareInboundRate Your HealthIn general, would you say your health is? GoodAssessment & Plan Problems:Added: Anxiety depression (ICD-300.09) (HZO98-M55.8) Assessment: Instructions: We have made a referral for you today. We will contact you to set this up. Please continue to monitor, report and avoid triggers causing increased anxity and depression.Assessed:Person consulting for explanation of examination or test findings (ICD-V65.8) (ICD10- Z71.2) Assessment: Instructions: We have reviewed your lab results with you today. Please continue medications as prescribed. please continue healthy diet and physical activities. Please try to maintain adequate intake of water daily.Hypothyroidism, unspecified (TRI23-S77.9) Assessment: Instructions: Thyroid levels within normal limits. Please continue your thyroid medication as prescribed. Please continue healthy diet and physical activities.Type 2 diabetes mellitus without complications (CAU07-V68.9) Assessment: Instructions: Your HGA1c is 7.3, Please continue medications as prescribed. Please continue healthy diet and physical activities. Please continue to limit sugars, carbohydrates, and fats in your diet.Hyperlipidemia (ICD-272.4) (JSH85-A20.5) Assessment: Instructions: We have increased the dose of your cholesteral medication today. May also take OTC Q10 tablet or fish oil tablet daily. Please continue healthy diet and physical activities.Localized swelling on foot, right (ICD-782.2) (PBY16-O57.41) Assessment: Improved.Pain in right foot (ICD-729.5) (ICW63-X48.671) Assessment: improved, per patient.Acute kidney failure, unspecified (ISO15-R98.9) Assessment: Instructions: Please continue to follow with your specialist as scheduled.Essential hypertension (ICD-401.9) (XSC60-X95) Assessment: Instructions: Your Blood Pressure is at goal today. Please continue medications as prescribed. Please continue healthy diet and physical activities. Please try to limit sodium in your diet. Please try to avoid processed foods.Patient Instructions/Care Plan: Anxiety depression: We have made a referral for you today. We will contact you to set this up. Please continue to monitor, report and avoid triggers causing increased anxity and depression.Person consulting for explanation of examination or test findings: We have reviewed your lab results with you today. Please continue medications as prescribed. please continue healthy diet and physical activities. Please try to maintain adequate intake of water daily.Hypothyroidism- unspecified: Thyroid levels within normal limits. Please continue your thyroid medication as prescribed. Please continue healthy diet and physical activities.Type 2 diabetes mellitus without complications: Your HGA1c is 7.3, Please continue medications as prescribed. Please continue healthy diet and physical activities. Please continue to limit sugars, carbohydrates, and fats in your diet.Hyperlipidemia: We have increased the dose of your cholesteral medication today. May also take OTC Q10 tablet or fish oil tablet daily. Please continue healthy diet and physical activities.Acute kidney failure- unspecified: Please continue to follow with your specialist as scheduled.Essential hypertension: Your Blood Pressure is at goal today. Please continue medications as prescribed. Please continue healthy diet and physical activities. Please try to limit sodium in your diet. Please try to avoid processed foods. Plan developed in collaboration with patient and/or familyMedications:COLCHICINE 0.6 MG ORAL TABLETACETAMINOPHEN 500 MG ORAL TABLETDOXYCYCLINE HYCLATE 100 MG ORAL TABLETLISINOPRIL 20 MG ORAL TABLETTRIAMCINOLONE ACETONIDE 0.1 % EXTERNAL OINTMENTBD PEN NEEDLE DANICA U/F 32G X 4 MMOMEPRAZOLE 40 MG ORAL CAPSULE DELAYED RELEASETRULICITY 1.5 MG/0.5ML SUBCUTANEOUS SOLUTION PEN-INJECTORASPIRIN 81 81 MG ORAL TABLET DELAYED RELEASEADMELOG 100 UNIT/ML SUBCUTANEOUS SOLUTIONBASAGLAR KWIKPEN 100 UNIT/ML SUBCUTANEOUS SOLUTION PEN-INJECTORLEVOTHYROXINE SODIUM 25 MCG ORAL TABLETGABAPENTIN 300 MG ORAL CAPSULESERTRALINE HCL 50 MG ORAL TABLETSERTRALINE HCL 100 MG ORAL TABLETROSUVASTATIN CALCIUM 10 MG ORAL TABLETFENOFIBRATE 134 MG ORAL CAPSULECLONIDINE HCL 0.1 MG ORAL TABLETNORVASC 5 MG ORAL TABLETMedication Changes:Added: COLCHICINE 0.6 MG ORAL TABLETRefilled:ROSUVASTATIN CALCIUM 10 MG ORAL TABLET-take one tablet by mouth twice daily Qty: 30[Tablet] Refills: 2 Method: ElectronicChanged:From: ORAL ROSUVASTATIN CALCIUM 5 MG ORAL TABLET Qty: [id number] Refills: 30[Tablet] To: ROSUVASTATIN CALCIUM 10 MG ORAL TABLET- take one tablet by mouth twice daily Qty: 30[Tablet] Refills: 2Allergies:* ATORVASTATIN (Moderate)Orders:Mental Health Consult [CPT-71125] COMP METABOLIC PANEL [CPT-99702] CBC W/DIFF [CPT-11731] HgBA1c [CPT-70976] LIPID PANEL [CPT- 91596] TSH [CPT-17556] T-4 free [CPT-50567] Vitamin D 250H Unspecified [CPT- 87551] URINALYSIS [CPT-01175] URIC ACID BLOOD [CPT-92134] Adult - Ofc Vst, EST, Level IV [CPT-49097] Follow-Up Return to clinic: 3 months for follow up Clinical Visit Summary CompletedMedications:ROSUVASTATIN CALCIUM 10 MG ORAL TABLET (ROSUVASTATIN CALCIUM) take one tablet by mouth twice daily #30[Tablet] x 2 Route:ORAL Entered and Authorized by: Kailee SHRESTHA Electroni irene signed by: Kailee SHRESTHA on 12/15/2019 [facility] [address] [place] [address] Note to Pharmacy: Route: ORAL; RxID: [id number] signed by Kailee SHRESTHA on 12/20/2019 at 6:05 PM Name Value Range Interpretation Code Description Data Cary rce(s) Supporting Document(s) ID Date Data Source [id number] 11/15/2019 10:14:[address] [facility] Measurements & CalculationsHeight: 67 inches (5 ft. 7 in.) 170.18 cm Weight: 234 pounds 106.36 kg Body Mass Index (BMI): 36.78BMI Interpretation: ObeseBody Surface Area (BSA): 2.16Weight Management Education Done (Nutrition/Physical Activity)Vital SignsTemperature: 98.2FPulse Rate: 95 beats/minuteRespiratory Rate: 16 respirations/minuteBlood Pressure: 146/93 O2 Saturation: 100% Vital Signs performed by: Rianna Espinoza MA, November 15, 2019 10:16 AMInitial Intake Information From: patientRoom #: 12Infectious Disease / Travel ScreeningRecent travel for you or any close contacts? NoHave you had any close contact with anyone diagnosed with or under investigation for COVID-19 (coronavirus)? NoFever? NoRespiratory symptoms: cough, cold, congestion, shortness of breath, difficulty breathing? NoLoss of smell? NoLoss of taste? NoSmoking, Tobacco, Vaping or Smoke Exposure StatusSmoke Status: never smokerTobacco Use: NoDo you vape? NoHealthcare HistorySince your last office visit...Have you been admitted to the hospital? NoHave you been to an emergency room (ER) or urgent care clinic? NoHave you seen another healthcare provider? Yes - Dr. Munoz, Dr Markham you seen a dentist? NoIntake performed by: Rianna Espinoza MA, November 15, 2019 10:15 AMRate Your HealthIn general, would you say your health is? GoodPain AssessmentAre you currently having any pain which... You would like your provider to address? Yes Affects your activity level? YesDepression Screening - PHQ-2Over the last two weeks, have you... Had little interest or pleasure in doing things? Not at all Been feeling down, depressed, or hopeless? Not at all PHQ-2 Score: 0Anxiety Screening - SERGEY-2Over the last two weeks, have you been... Feeling nervous, anxious, or on edge? Not at all Unable to stop or control worrying? Not at all SERGEY-2 Score: 0Pain AssessmentPain ScaleNumeric Rating Scale: 7 / 10Location: right footDuration: 1.5 weeks Frequency: DailyCharacter/Quality: stabbingIs the pain radiating? NoScreening, Brief Intervention, & Referral to Treatment (SBIRT)Pre- Screening Questions How many times have you have 5 or more drinks in a day? 0How many times have you used an illegal drug or used a prescription medication for a non-medical reason? 0Performed by: Rianna Espinoza MA, November 15, 2019 10:16 AMPatient History Medical History:Diabetes Type IIDepressionAnxietyHigh cholesterolHypertensionHypothyroidismGlacomaSurgical History:R Eye Removal - Due to DiabetesLaser SurgeryFamily History:Diabetes (Mother)Hypertension (Mother, Father)Heart disease (Father)High cholesterol (Mother, Father)Hx of cancer, unsure of the type Social/Personal History: Chief Complaintdm and lab results right foot pain History of Present Illness (HPI)34 yo male, here for follow up visit and review of lab results. Pt states also concerned with right foot pain and swelling that started about 3-4 days ago. Pt states taking medications as prescribed. Pt states healthy diet and physical activities. HPI performed by: Kailee SHRESTHA, November 15, 2019 12:11 PMTransitions of Care InboundProblem ReviewProblem List was reviewed and/or updated during this visit.Medication Reconciliation & ReviewMedication List was reviewed and/or updated during this visit, including review of any wtou-een-eypaktc medications, herbal therapies, and/or supplements.Allergy ReviewAllergy List was reviewed and/or updated during this visit.Adult Preventive CareProvider Calculated and Reviewed all Clinical Protocols for patient today. Labs/Meds/Other Counseling-Nutrition and Physical Activity:BMI Interpretation: Obese (11/15/2019) Counseling: Done (11/15/2019) Physical Activity: Done (11/15/2019)Review of Systems General: Denies loss of appetite, chills, dizzines s, fatigue, fever, continued fever, headache, feeling ill, sweats, night sweats, sleep disturbances, weight loss. Eyes: Complains of vision loss. Denies irritation, discharge, eye pain, eye swelling, droopy eyelid, sensitivity to light, redness, itching. 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 Cardiovascular: Complains of peripheral edema. Denies chest pain, palpitations, feeling faint, trouble breathing w/exertion, SOB upon lying down, SOB at night, elevated blood pressure, decreased heart rate. left leg, ankle swelling. Respiratory: Denies cough, difficulty breathing, shortness of breath, excessive sputum, coughing up blood, wheezing, chest pain. Gastrointestinal: Denies nausea, vomiting, bleeding, burning, itching, irritation, cramps, diarrhea, constipation. Genitourinary: Denies urinary incontinence, pain with urination, burning with urination, urinary frequency, urinary hesitancy, urinary urgency, urinary urgency at night, blood in urine. Musculoskeletal: Complains of leg pain. Denies back pain, joint pain, other pain-see comments, joint swelling, body aches, muscle aches, muscle cramps, muscle weakness, stiffness, recent injury. right foot painSkin: Denies rash, hives, redness, itching, dryness, nail changes, suspicious lesions, athlete's foot, rash on palms, rash on bottom of feet. Neurologic: Denies muscle impairment, weakness, numbness/tingling, seizures, slurred speech, feeling faint, tremors, vertigo, paralysis on one side, paralysis on both sides. Psychiatric: Denies depression, anxiety, memory loss, mental disturbance, suicidal ideation, homicidal ideation, hallucinations, paranoia, feeling stressed, hearing voices. Endocrine: Denies cold intolerance, heat intolerance, excessive thirst, excessive hunger, excessive urination, weight loss, weight gain. Physical ExamGeneral Appearance: well nourished, well hydrated, no acute distressEyes, External: conjunctivae and lids normal, EOMIRespiratory, Auscultat ion: clear to auscultation bilaterally; no rales, rhonchi, or wheezesRespiratory, Effort: no intercostal retractions or use of accessory musclesCardiovascular, Auscultation: S1, S2 audible; no murmur, rub, or gallop; RRRPeripheral Circulation: +1-2 right ankle swelling, warm to touch. Abdomen: soft, non-tender, no masses, bowel sounds normalGait & Station: normalSkin, Inspection: no rashes, lesions, or ulcerationsOrientation: oriented to time, place, and personMood & Affect: no depression, anxiety, or agitationJudgment & Insight: intactCare Management Plan Care Team Assigned Risk Level: cTransitions of CareInboundRate Your HealthIn general, would you say your health is? GoodAssessment & Plan Problems:Added: Pain in left foot (ICD-729.5) (ICD10- M79.672) Assessment: will follow up for eval of left foot pain Instructions: May take tylenol as needed for foot pain. May continue warm soaks as needed.Localized swelling of left lower leg (FVD67-R44.42) Assessment: Instructions: Please try to avoid added sodium in your diet. Please try to keep legs elevated. may be early onst cellulitis. ABX sent to pharmacy. Please use as prescribed. Please report any major side effects. If symptoms worsen, please return to clinic or the ER.Changed:From: Dx of Localized swelling of left lower leg (JEO83-K42.42) To: Localized swelling on foot, right (ICD-782.2) (ICD10- R22.41)From: Dx of Pain in left foot (ICD-729.5) (YDA13-V82.672) To: Pain in right foot (ICD-729.5) (FUG14-B16.671)Assessed:Leukocytosis (ICD-288.60) (ICD10- D72.829) Assessment: Instructions: WBC 15.2. due to right foot swelling will send script for ABX. please try to maintain adequate intake of water daily.Leukocytosis (ICD-288.60) (AMO11-I66.829) Assessment: May be due to right foot swelling.Will recheck labs prior to next visit.Localized swelling on foot, right (ICD-782.2) (USG96-P92.41) Assessment: Instructions: Please try to avoid added sodium in your diet. Please try to keep legs elevated. may be early onst cellulitis. ABX sent to pharmacy. Please use as prescribed. Please report any major side effects. If symptoms worsen, please return to clinic or the ER.Pain in right foot (ICD-729.5) (UWQ59-S27.671) Assessment: will follow up for eval of left foot pain Instructions: May take tylenol as needed for foot pain. May continue warm soaks as needed.Essential hypertension (ICD-401.9) (VMP96-V78) Assessment: Instructions: Your Blood pressure is elevated today. Please continue medications as prescribed. Please continue healthy diet and physical activities. Please try to limit sodium in your diet. Please try to avoid processed foods.Person consulting for explanation of examination or test findings (ICD-V65.8) (GCF31-M98.2) Assessment: not all lab results available today due to situatiin with hospital computer system. will contact patient if concerning lab results. Instructions: available lab results reviewed with you today.Type 2 diabetes mellitus without complications (OWW40-W81.9) Assessment: Instructions: Please continue medications as prescribed. Please continue healthy diet and physical activities. Please continue to limit sugars, carbohydrates, and fats in your diet.Patient Instructions/Care Plan: Leukocytosis: WBC 15.2. due to right foot swelling will send script for ABX. please try to maintain adequate intake of water daily.Pain in left foot: May take tylenol as needed for foot pain. May continue warm soaks as needed.Localized swelling of left lower leg: Please try to avoid added sodium in your diet. Please try to keep legs elevated. may be early onst cellulitis. ABX sent to pharmacy. Please use as prescribed. Please report any major side effects. If symptoms worsen, please return to clinic or the ER.Localized swelling on foot- right: Please try to avoid added sodium in your diet. Please try to keep legs elevated. may be early onst cellulitis. ABX sent to pharmacy. Please use as prescribed. Please report any major side effects. If symptoms worsen, please return to clinic or the ER.Pain in right foot: May take tylenol as needed for foot pain. May continue warm soaks as needed.Essential hypertension: Your Blood pressure is elevated today. Please continue medications as prescribed. Please continue healthy diet and physical activities. Please try to limit sodium in your diet. Please try to avoid processed foods.Person consulting for explanation of examination or test findings: available lab results reviewed with you today.Type 2 diabetes mellitus without complications: Please continue medications as prescribed. Please continue healthy diet and physical activities. Please continue to limit sugars, carbohydrates, and fats in your diet. Plan developed in collaboration with patient and/or familyMedications:ACETAMINOPHEN 500 MG ORAL TABLETDOXYCYCLINE HYCLATE 100 MG ORAL TABLETLISINOPRIL 20 MG ORAL TABLETTRIAMCINOLONE ACETONIDE 0.1 % EXTERNAL OINTMENTBD PEN NEEDLE DANICA U/F 32G X 4 MMOMEPRAZOLE 40 MG ORAL CAPSULE DELAYED RELEASETRULICITY 1.5 MG/0.5ML SUBCUTANEOUS SOLUTION PEN-INJECTORASPIRIN 81 81 MG ORAL TABLET DELAYED RELEASEADMELOG 100 UNIT/ML SUBCUTANEOUS SOLUTIONBASAGLAR KWIKPEN 100 UNIT/ML SUBCUTANEOUS SOLUTION PEN-INJECTORLEVOTHYROXINE SODIUM 25 MCG ORAL TABLETGABAPENTIN 300 MG ORAL CAPSULESERTRALINE HCL 50 MG ORAL TABLETSERTRALINE HCL 100 MG ORAL TABLETROSUVASTATIN CALCIUM 5 MG ORAL TABLETFENOFIBRATE 134 MG ORAL CAPSULECLONIDINE HCL 0.1 MG ORAL TABLETNORVASC 5 MG ORAL TABLETMedication Changes:New Prescription:DOXYCYCLINE HYCLATE 100 MG ORAL TABLET-take one tablet by mouth twice daily x 7 days Qty: 14[Tablet] Refills: 0 Method: ElectronicACETAMINOPHEN 500 MG ORAL TABLET-take one tablet by mouth twice daily as needed Qty: 30[Tablet] Refills: 2 Method: ElectronicAllergies:* ATORVASTATIN (Moderate)Orders:COMP METABOLIC PANEL [CPT- 88095] CBC W/DIFF [CPT-65771] Adult - Ofc Vst, EST, Level IV [CPT-68457] Follow- Up Return to clinic: 1 month for follow up. Rate Your HealthIn general, would you say your health is? GoodMedications:ACETAMINOPHEN 500 MG ORAL TABLET (ACETAMINOPHEN) take one tablet by mouth twice daily as needed #30[Tablet] x 2 Route:ORAL Entered and Authorized by: Kailee SHRESTHA Method used: Electronically to [facility]* (retail) [address] [place] [address] Note to Pharmacy: Route: ORAL; Indications: LOCALIZED SWELLING OF LEFT LOWER LEG;PAIN IN LEFT FOOT RxID: [id number] HYCLATE 100 MG ORAL TABLET (DOXYCYCLINE HYCLATE) take one tablet by mouth twice daily x 7 days #14[Tablet] x 0 Route:ORAL Entered and Authorized by: Kailee SHRESTHA Method used: Electronically to [facility]* (retail) [address] [place] [address] Fax: Note to Pharmacy: Route: ORAL; Indications: LOCALIZED SWELLING OF LEFT LOWER LEG RxID: [id number] signed by Kailee SHRESTHA on 11/19/2019 at 3:34 PM Name Value Range Interpretation Code Description Data Cary rce(s) Supporting Document(s) ID Date Data Source [id number] 11/09/2019 12:00:[address] [facility] Name Value Range Interpretation Code Description Data Cary rce(s) Supporting Document(s) HGBA1C 7.3 % [facility] ID Date Data Source [id number] 11/08/2019 10:15:[address] [facility] Name Value Range Interpretation Code Description Data Cary rce(s) Supporting Document(s) APPEARANCE U CLEAR CLEAR N [facility] SPEC GR URIN 1.023 1.002-1.035 N [facility] UA COLOR YELLOW YELLOW N [facility] ID Date Data Source [id number] 11/08/2019 10:15:[address] [facility] Name Value Range Interpretation Code Description Data Cary rce(s) Supporting Document(s) HCT 42.4 % 42.0-52.0 N [facility] HGB 14.1 g/dL 13.5-17.[address] [facility] MCH 33.3 G/DL pg 32.0-36.5 N [facility] MCHC 29.1 PG % 27.0-33.[address] [facility] PLATELETS 336 10 10*3/mm3 150-[address] [facility] RBC 4.85 10 10*6/mm3 4.30-6.[address] [facility] RDW 14.1 % 11.5-14.[address] [facility] WBC TOTAL 15.1 4.0-10.[address] [facility] ID Date Data Source [id number] 11/08/2019 10:15:[address] [facility] Name Value Range Interpretation Code Description Data Cary rce(s) Supporting Document(s) BG FASTING 198 mg/dL 70-[address] [facility] Health T4, FREE 1.31 ng/dL 0.76-1.46 N [facility] TSH 0.590 microintl units/mL 0.358-3.740 N [facility] VIT D25 TOT 29.1 ng/mL 30.0-100.0 L [facility] ID Date Data Source [id number] 11/08/2019 10:15:[address] [facility] Name Value Range Interpretation Code Description Data Cary rce(s) Supporting Document(s) HGBA1C 7.3 % N [facility] ID Date Data Source [id number] 11/08/2019 06:55:[address] [facility] Labs In-House Blood TestsDate/Time Colle cted: 11/08/2019Test Result Reference Range Normal ValueComments: blood draw 11/08/2019Charmaine Nguyen, OctoberAssessment & Plan Orders:[id number] Vst-Est Level I [CPT- 87416] [id number] - Venipuncture [CPT-35920] Name Value Range Interpretation Code Description Data Cary rce(s) Supporting Document(s) ID Date Data Source [id number] 10/26/2019 03:54:[address] [facility] Measurements & CalculationsHeight: 67 inches (5 ft. 7 in.) 170.18 cm Weight: 228 pounds 8 oz. 103.86 kg Body Mass Index (BMI): 35.92BMI Interpretation: ObeseBody Surface Area (BSA): 2.14Weight Management Education Done (Nutrition/Physical Activity)Vital SignsTemperature: 97.8F tympanic Pulse Rate: 92 beats/minuteResp iratory Rate: 18 respirations/minuteBlood Pressure: 115/86 right arm sitting automaticO2 Saturation: 98% room airVital Signs performed by: Fawad Woodall LPN, October 26, 2019 3:57 PMInitial Intake Information From: patientRoom #: 14Infectious Disease / Travel ScreeningRecent travel for you or any close contacts? NoHave you had any close contact with anyone diagnosed with or under investigation for COVID-19 (coronavirus)? NoFever? NoRespiratory symptoms: cough, cold, congestion, shortness of breath, difficulty breathing? NoLoss of smell? NoLoss of taste? NoSmoking, Tobacco, Vaping or Smoke Exposure StatusSmoke Status: never smokerTobacco Use: NoDo you vape? NoPassive Smoke Exposure: NoHealthcare HistorySince your last office visit...Have you been admitted to the hospital? NoHave you been to an emergency room (ER) or urgent care clinic? NoHave you seen another healthcare provider? Yes - Dr. Munoz, Dr Markham you seen a dentist? NoIntake performed by: Fawad Woodall LPN, October 26, 2019 3:55 PMRate Your HealthIn general, would you say your health is? GoodPain AssessmentAre you currently having any pain which... You would like your provider to address? No Affects your activity level? NoDepression Screening - PHQ-2Over the last two weeks, have you... Had little interest or pleasure in doing things? Not at all Been feeling down, depressed, or hopeless? Not at all PHQ-2 Score: 0Anxiety Screening - SERGEY-2Over the last two weeks, have you been... Feeling nervous, anxious, or on edge? Not at all Unable to stop or control worrying? Not at all SERGEY-2 Score: 0Food InsecurityWithin the past year...Did you worry whether your food would run out before you got money to buy more? NoWas there a time when the food you bought didn't last and you didn't have money to get more? NoScreening, Brief Intervention, & Referral to Treatment (SBIRT)Pre-Screening Questions How many times have you have 5 or more drinks in a day? 0How many times have you used an illegal drug or used a prescription medication for a non-medical reason? 0Performed by: Fawad Woodall LPN, October 26, 2019 3:56 PMPatient History Medical History:Diabetes Type IIDepressionAnxietyHigh cholesterolHyper tensionHypothyroidismGlacomaSurgical History:R Eye Removal - Due to DiabetesLaser SurgeryFamily History:Diabetes (Mother)Hypertension (Mother, Father)Heart disease (Father)High cholesterol (Mother, Father)Hx of cancer, unsure of the type Social/Personal History: Chief ComplaintF/U BP RM 14 History of Present Illness (HPI)34 yo male Pt here today for BP Check. Pt denies pain at this time. Pt state he is taking all medications with no side effects. Pt states blurry vision, chronic.- following with opthalmologist. Pt denies other concerns at this time. HPI performed by: Kailee SHRESTHA, October 26, 2019 4:03 PMTransitions of Care InboundProblem ReviewProblem List was reviewed and/or updated during this visit.Medication Reconciliation & ReviewMedication List was reviewed and/or updated during this visit, including review of any [id number]-noshjzf medications, herbal therapies, and/or supplements.Allergy ReviewAllergy List was reviewed and/or updated during this visit.Adult Preventive CareProvider Calculated and Reviewed all Clinical Protocols for patient today. Labs/Meds/Other Counseling-Nutrition and Physical Activity:BMI Interpretation: Obese (10/26/2019) Counseling: Done (10/26/2019) Physical Activity: Done (10/26/2019)Review of Systems General: Denies loss of appetite, chills, dizziness, fatigue, fever, continued fever, headache, feeling ill, sweats, night sweats, sleep disturbances, weight loss. Eyes: Complains of blurring of vision. Denies double vision, irritation, discharge, vision loss, eye pain, eye swelling, droopy eyelid, sensitivity to light, redness, itching. chronic- follows with retna specialist Dr Burgess, in [place]. Ears/Nose/Throat: Denies earache, ear discharge, ringing in ears, decreased hearing, nasal congestion, nosebleeds, runny nose, sore throat, hoarseness, difficulty swallowing, dry mouth, tooth pain, bleeding gums, swollen glands. Cardiovascular: Denies chest pain, palpitations, feeling faint, trouble breathing w/exertion, SOB upon lying down, SOB at night, peripheral edema, elevated blood pressure, decreased heart rate. Respiratory: Denies cough, difficulty breathing, shortness of breath, excessive sputum, coughing up blood, wheezing, chest pain. Gastrointestinal: Denies nausea, vomiting, bleeding, burning, itching, irritation, cramps, diarrhea, constipation. Genitourinary: Denies urinary incontinence, pain with urination, burning with urination, urinary frequency, urinary hesitancy, urinary urgency, urinary urgency at night, incomplete emptying, blood in urine. Musculoskeletal: Denies back pain, joint pain, leg pain, other pain-see comments, joint swelling, body aches, muscle aches, muscle cramps, muscle weakness, stiffness, recent injury. Skin: Denies rash, hives, redness, itching, dryness, nail changes, suspicious lesions, athle te's foot, rash on palms, rash on bottom of feet. Neurologic: Denies muscle impairment, weakness, numbness/tingling, seizures, slurred speech, feeling faint, tremors, vertigo, paralysis on one side, paralysis on both sides. Psychiatric: Denies depression, anxiety, memory loss, mental disturbance, suicidal ideation, homicidal ideation, hallucinations, paranoia, feeling stressed, hearing voices. Endocrine: Denies cold intolerance, heat intolerance, excessive thirst, excessive hunger, excessive urination, weight loss, weight gain. Physical ExamGeneral Appearance: well nourished, well hydrated, no acute distressEyes, External: conjunctivae and lids normal, EOMIRespiratory, Auscultation: clear to auscultation bilaterally; no rales, rhonchi, or wheezesRespiratory, Effort: no intercostal retractions or use of accessory musclesCardiovascular, Auscultation: S1, S2 audible; no murmur, rub, or gallop; RRRPeripheral Circulation: no clubbing, cyanosis, edema, or varicositiesAbdomen: soft, non-tender, no masses, bowel sounds normalGait & Station: normalSkin, Inspection: no rashes, lesions, or ulcerationsOrientation: oriented to time, place, and personMood & Affect: no depression, anxiety, or agitationJudgment & Insight: intactCare Management Plan Transitions of CareInboundRate Your HealthIn general, would you say your health is? GoodAssessment & Plan Problems:Assessed:Essential hypertension (ICD-401.9) (WVU73-S62) Assessment: Instructions: This is at goal. Please continue medications as prescribed. Please continue healthy diet and physical activities. Please try to limit sodium in your diet. Please try to avoid processed foods.Glaucoma (ICD-365.9) (ICD10- H40.9) Assessment: Instructions: Please continue to follow with your specialist as scheduled.Patient Instructions/Care Plan: Essential hypertension: This is at goal. Please continue medications as prescribed. Please continue healthy diet and physical activities. Please try to limit sodium in your diet. Please try to avoid processed foods.Glaucoma: Please continue to follow with your specialist as scheduled. Plan developed in collaboration with patient and/or familyMedications:LISINOPRIL 20 MG ORAL TABLETTRIAMCINOLONE ACETONIDE 0.1 % EXTERNAL OINTMENTBD PEN NEEDLE DANICA U/F 32G X 4 MMOMEPRAZOLE 40 MG ORAL CAPSULE DELAYED RELEASETRULICITY 1.5 MG/0.5ML SUBCUTANEOUS SOLUTION PEN- INJECTORASPIRIN 81 81 MG ORAL TABLET DELAYED RELEASEADMELOG 100 UNIT/ML SUBCUTANEOUS SOLUTIONBASAGLAR KWIKPEN 100 UNIT/ML SUBCUTANEOUS SOLUTION PEN- INJECTORLEVOTHYROXINE SODIUM 25 MCG ORAL TABLETGABAPENTIN 300 MG ORAL CAPSULESERTRALINE HCL 50 MG ORAL TABLETSERTRALINE HCL 100 MG ORAL TABLETROSUVASTATIN CALCIUM 5 MG ORAL TABLETFENOFIBRATE 134 MG ORAL CAPSULECLONIDINE HCL 0.1 MG ORAL TABLETNORVASC 5 MG ORAL TABLETAllergies:* ATORVASTATIN (Moderate)Orders:Adult - Ofc Vst, EST, Level III [CPT-37420] Follow-Up Return to clinic: as scheduled and as needed Clinical Visit Summary Completed Name Value Range Interpretation Code Description Data Cary rce(s) Supporting Document(s) ID Date Data Source [id number] 09/15/2019 10:19:[address] [facility] Measurements & CalculationsHeight: 67 inches (5 ft. 7 in.) 170.18 cm Weight: 230 pounds 1 oz. 104.57 kg Body Mass Index (BMI): 36.16BMI Interpretation: ObeseBody Surface Area (BSA): 2.15Weight Management Education Done (Nutrition/Physical Activity)Vital SignsTemperature: 98.8FPulse Rate: 99 beats/minuteRespiratory Rate: 14 respirat ions/minuteBlood Pressure: 131/89 O2 Saturation: 97% Vital Signs performed by: Salima Dowd LPN, September 15, 2019 10:21 AMVital Signs performed by: Salima Dowd LPN, September 15, 2019 10:21 AMMultiple Vital SignsInitial BP: 150/100Vitals #2BP: 131/89 (primary)Initial Intake Information From: patientRoom #: 9Infectious Disease / Travel ScreeningRecent travel for you or any close contacts? NoHave you had any close contact with anyone diagnosed with or under investigation for COVID-19 (coronavirus)? NoFever? NoRespiratory symptoms: cough, cold, congestion, shortness of breath, difficulty breathing? NoLoss of smell? NoLoss of taste? NoSmoking, Tobacco, Vaping or Smoke Exposure StatusSmoke Status: never smokerTobacco Use: NoDo you vape? NoHealthcare HistorySince your last office visit...Have you been admitted to the hospital? NoHave you been to an emergency room (ER) or urgent care clinic? NoHave you seen another healthcare provider? Yes - Dr Munoz, DR Markham you seen a dentist? NoIntake performed by: Salima Dowd LPN, September 15, 2019 10:22 AMRate Your HealthIn general, would you say your health is? GoodPain AssessmentAre you currently having any pain which... You would like your provider to address? No Affects your activity level? NoDepression Screening - PHQ-2Over the last two weeks, have you... Had little interest or pleasure in doing things? Not at all Been feeling down, depressed, or hopeless? Not at all PHQ-2 Score: 0Anxiety Screening - SERGEY-2Over the last two weeks, have you been... Feeling nervous, anxious, or on edge? Not at all Unable to stop or control worrying? Not at all SERGEY-2 Score: 0Food InsecurityWithin the past year...Did you worry whether your food would run out before you got money to buy more? NoWas there a time when the food you bought didn't last and you didn't have money to get more? NoScreening, Brief Intervention, & Referral to Treatment (SBIRT)Pre-Screening Questions How many times have you have 5 or more drinks in a day? 0How many t imes have you used an illegal drug or used a prescription medication for a non- medical reason? 365Performed by: Salima Dowd LPN, September 15, 2019 10:24 AMPatient History Medical History:Diabetes Type IIDepressionAnxietyHigh cholesterolHypertensionHypothyroidismGlacomaSurgical History:R Eye Removal - Due to DiabetesLaser SurgeryFamily History:Diabetes (Mother)Hypertension (Mother, Father)Heart disease (Father)High cholesterol (Mother, Father)Hx of cancer, unsure of the type Social/Personal History: Chief Complaintfollow-up visit for lab results room 9History of Present Illness (HPI)34 YO male here for follow up visit and review of lab results.Pt states healthy diet and physical activities.Pt states taking medications as prescribed. Pt states get some nausea with Trulicity but symptoms getting better. Pt statesd seen by Nephro. Pt states visit went well. Pt states had US of Kidneys done yesterday. Pt denies other new concerns today. HPI performed by: Kailee SHRESTHA, September 15, 2019 11:06 AMTransitions of Care InboundProblem ReviewProblem List was reviewed and/or updated during this visit.Medication Reconciliation & ReviewMedication List was reviewed and/or updated during this visit, including review of any jsqp-[id number] medications, herbal therapies, and/or supplements.Allergy ReviewAllergy List was reviewed and/or updated during this visit.Adult Preventive CareProvider Calculated and Reviewed all Clinical Protocols for patient today. Labs/Meds/Other Counseling-Nutrition and Physical Activity:BMI Interpretation: Obese (09/15/2019) Counseling: Done (09/15/2019) Physical Activity: Done (09/15/2019)Review of Systems General: Denies loss of appetite, chills, dizziness, fatigue, fever, continued fever, headache, feeling ill, sweats, night sweats, sleep disturbances, weight loss. Eyes: Complains of blurring of vision. Denies double vision, irritation, discharge, vision loss, eye pain, eye swelling, droopy eyelid, sensitivity to light, redness, itching. Ears/Nose/Throat: Denies earache, ear discharge, ringing in ears, decreased hearing, nasal congestion, nosebleeds, runny nose, sore throat, hoarseness, difficulty swallowing, dry mouth, tooth pain, bleeding gums, swollen glands. Cardiovascular: Denies chest pain, palpitations, feeling faint, trouble breathing w/exertion, SOB upon lying down, SOB at night, peripheral edema, elevated blood pressure, decreased heart rate. Respiratory: Denies cough, difficulty breathing, shortness of breath, excessive sputum, coughing up blood, wheezing, chest pain. Gastrointestinal: Denies nausea, vomiting, bleeding, burning, itching, irritation, cramps, diarrhea, constipation. Genitourinary: Denies urinary incontinence, pain with urination, burning with urination, urinary frequency, urinary hesitancy, urinary urgency, urinary urgency at night, incomplete emptying, blood in urine. Musculoskeletal: Denies back pain, joint pain, leg pain, other pain-see comments, joint swelling, body aches, muscle aches, muscle cramps, muscle weakness, stiffness, recent injury. Skin: Denies rash, hives, redness, itching, dryness, nail changes, suspicious lesions, athlete's foot, rash on palms, rash on bottom of feet. Neurologic: Denies muscle impairment, weakness, numbness/tingling, seizures, slurred speech, feeling faint, tremors, vertigo, paralysis on one side, paralysis on both sides. Psychiatric: Denies depression, anxiety, memory loss, mental disturbance, suicidal ideation, homicidal ideation, hallucinations, paranoia, feeling stressed, hearing voices. Endocrine: Denies cold intolerance, heat intolerance, excessive thirst, excessive hunger, excessive urination, weight loss, weight gain. Physical ExamGeneral Appearance: well nourished, well hydrated, no acute distressEyes, External: conjunctivae and lids normal, EOMIRespiratory, Auscult ation: clear to auscultation bilaterally; no rales, rhonchi, or wheezesRespiratory, Effort: no intercostal retractions or use of accessory musclesCardiovascular, Auscultation: S1, S2 audible; no murmur, rub, or gallop; RRRPeripheral Circulation: no clubbing, cyanosis, edema, or varicositiesAbdomen: soft, non-tender, no masses, bowel sounds normalGait & Station: normalSkin, Inspection: no rashes, lesions, or ulcerationsOrientation: oriented to time, place, and personMood & Affect: no depression, anxiety, or agitationJudgment & Insight: intactCare Management Plan Transitions of CareInboundRate Your HealthIn general, would you say your health is? GoodAssessment & Plan Problems:Assessed:Person consulting for explanation of examination or test findings (ICD-V65.8) (QKC67-T48.2) Assessment: Instructions: We have reviewed your lab results with you today. Please continue medications as prescribed. Please continue healthy diet and physical activities.Cannabis use, unspecified, uncomplicated (ZNE31-B34.90) Assessment: Instructions: Marijuana use is still an illicit substance in the [facility]. This may also interact with prescribed medications. Please try to avoid use.Acute kidney failure, unspecified (GRT25-L65.9) Assessment: Patient states had US done yesterday. following with nephro. was restarted on Lisinopril. Instructions: Please keep your appointment with your Reimbursement Manager. Please try to avoid use of Nsaids. Please try to maintain adequate intake of water daily.Type 2 diabetes mellitus without complications (PCR43-N11.9) Assessment: Instructions: Ple ase continue medications as prescribed. Please continue healthy diet and physical activities. Please continue to limit sugars, carbohydrates, and fats in your diet.Essential hypertension (ICD-401.9) (ZLL70-O90) Assessment: Instructions: Blood Pressure rechecked 131/89. This is at goal. Please continue medications as prescribed. Please continue healthy diet and physical activities. Please try to limit sodium in your diet. Please try to avoid processed foods.Hyperlipidemia (ICD-272.4) (PWC43-C45.5) Assessment: Instructions: Please continue medications as prescribed. Please continue healthy diet and physical activities. Please try to avoid processed foods.Patient Instructions/Care Plan: Person consulting for explanation of examination or test findings: We have reviewed your lab results with you today. Please continue medications as prescribed. Please continue healthy diet and physical activities.Cannabis use- unspecified- uncomplicated: Marijuana use is still an illicit substance in the [facility]. This may also interact with prescribed medications. Please try to avoid use.Acute kidney failure- unspecified: Please keep your appointment with your Reimbursement Manager. Please try to avoid use of Nsaids. Please try to maintain adequate intake of water daily.Type 2 diabetes mellitus without complications: Please continue medications as prescribed. Please continue healthy diet and physical activities. Please continue to limit sugars, carbohydrates, and fats in your diet.Essential hypertension: Blood Pressure rechecked 131/89. This is at goal. Please continue medications as prescribed. Please continue healthy diet and physical activities. Please try to limit sodium in your diet. Please try to avoid processed foods.Hyperlipidemia: Please continue medications as prescribed. Please continue healthy diet and physical activities. Please try to avoid processed foods. Plan developed in collaboration with patient and/or familyMedications:LISINOPRIL 20 MG ORAL TABLETTRIAMCINOLONE ACETONIDE 0.1 % EXTERNAL OINTMENTBD PEN NEEDLE DANICA U/F 32G X 4 MMOMEPRAZOLE 40 MG ORAL CAPSULE DELAYED RELEASETRULICITY 1.5 MG/0.5ML SUBCUTANEOUS SOLUTION PEN-INJECTORASPIRIN 81 81 MG ORAL TABLET DELAYED RELEASEADMELOG 100 UNIT/ML SUBCUTANEOUS SOLUTIONBASAGLAR KWIKPEN 100 UNIT/ML SUBCUTANEOUS SOLUTION PEN- INJECTORLEVOTHYROXINE SODIUM 25 MCG ORAL TABLETGABAPENTIN 300 MG ORAL CAPSULESERTRALINE HCL 50 MG ORAL TABLETSERTRALINE HCL 100 MG ORAL TABLETROSUVASTATIN CALCIUM 5 MG ORAL TABLETFENOFIBRATE 134 MG ORAL CAPSULECLONIDINE HCL 0.1 MG ORAL TABLETNORVASC 5 MG ORAL TABLETAllergies:* ATORVASTATIN (Moderate)Orders:COMP METABOLIC PANEL [CPT-56007] CBC W/DIFF [CPT- 31831] HgBA1c [CPT-32044] LIPID PANEL [CPT-21542] TSH [CPT-48708] T-4 free [CPT- 06393] Vitamin D 250H Unspecified [CPT-60832] URINALYSIS [CPT-91549] Adult - Ofc Vst, EST, Level IV [CPT-51281] Follow-Up Return to clinic: 2 months for follow up Clinical Visit Summary Completed __ Name Value Range Interpretation Code Description Data Cary rce(s) Supporting Document(s) ID Date Data Source [id number] 09/01/2019 08:08:[address] [facility] In-House Blood TestsDate/Time Colle cted: September 01, 2019 8:09 AMTest Result Reference Range Normal ValueComments: blood draw done in office done in the right ac tolerated well George Hopkins MA, September 01, 2019 8:09 AMAssessment & Plan Orders:[id number] Vst-Est Level I [CPT-57453] 39327 - Venipuncture [CPT-02998] Name Value Range Interpretation Code Description Data Cary rce(s) Supporting Document(s) ID Date Data Source [id number] 09/01/2019 08:03:[address] [facility] Name Value Range Interpretation Code Description Data Cary rce(s) Supporting Document(s) HCT 41.5 % 42.0-52.[address] [facility] HGB 14.2 g/dL 13.5-17.[address] [facility] MCH 34.2 G/DL pg 32.0-36.5 N [facility] MCHC 30.2 PG % 27.0-33.[address] [facility] PLATELETS 285 10 10*3/mm3 150-[address] [facility] RBC 4.70 10 10*6/mm3 4.30-6.[address] [facility] RDW 14.4 % 11.5-14.[address] [facility] WBC TOTAL 11.4 4.0-10.[address] [facility] ID Date Data Source [id number] 09/01/2019 08:03:[address] [facility] Name Value Range Interpretation Code Description Data Cary rce(s) Supporting Document(s) BG FASTING 404 mg/dL 70-[address] [facility] ID Date Data Source [id number] 08/16/2019 10:58:[address] [facility] Measurements & CalculationsHeight: 67 inches (5 ft. 7 in.) 170.18 cm Initial Intake Information From: patientVisit Type: phone encounterStart Time: 11:30 AMInfectious Disease / Travel ScreeningRecent travel for you or any close contacts? NoHave you had any close contact with anyone diagnosed with or under investigation for COVID-19 (coronavirus)? NoFever? NoRespiratory symptoms: cough, cold, congestion, shortness of breath, difficulty breathing? NoLoss of smell? NoLoss of taste? NoSmoking, Tobacco, Vaping or Smoke Exposure StatusSmoke Status: never smokerTobacco Use: NoDo you vape? NoPassive Smoke Exposure: NoHealthcare HistorySince your last office visit...Have you been admitted to the hospital? NoHave you been to an emergency room (ER) or urgent care clinic? NoHave you seen another healthcare provider? Yes - mateus hernandez dr. Have you seen a dentist? NoIntake performed by: Fawad Woodall MA, August 16, 2019 11:00 AMRate Your HealthIn general, would you say your health is? GoodPain AssessmentAre you currently having any pain which... You would like your provider to address? No Affects your activity level? NoDepression Screening - PHQ-2Over the last two weeks, have you... Had little interest or pleasure in doing things? Not at all Been feeling down, depressed, or hopeless? Not at all PHQ-2 Score: 0Anxiety Screening - SERGEY-2Over the last two weeks, have you been... Feeling nervous, anxious, or on edge? Not at all Unable to stop or control worrying? Not at all SERGEY-2 Score: 0Food InsecurityWithin the past year...Did you worry whether your food would run out before you got money to buy more? NoWas there a time when the food you bought didn't last and you didn't have money to get more? Does not apply to meScreening, Brief Intervention, & Referral to Treatment ( SBIRT)Pre-Screening Questions How many times have you have 5 or more drinks in a day? 0How many times have you used an illegal drug or used a prescription medication for a non-medical reason? 0Performed by: Fawad Woodall MA, August 16, 2019 11:00 AMPatient History Medical History:Diabetes Type IIDepressionAnxietyHigh cholesterolHypertensionHypothyroidismGlacomaSurgical History:R Eye Removal - Due to DiabetesLaser SurgeryFamily History:Diabetes (Mother)Hypertension (Mother, Father)Heart disease (Father)High cholesterol (Mother, Father)Hx of cancer, unsure of the type Social/Personal History: Chief Complaintlab resultsHistory of Present Illness (HPI)This visit was conducted via telephone. Kailee SHRESTHA has received verbal consent from the patient/guardian to conduct this visit via telehealth. The patient has been made aware that they have the right to refuse telehealth; of my location and the security of the telehealth software; any other parties present in the session; and that they have a right to select another provider if chosen for a face to face visit.34 yr old male Pt for follow up visit and review of lab results via phone visit today. Pt denies pain at this time. Pt states he is taking all medications with no side effects or issues. Pt states still smoking Marijuana frequently. Pt denies cigarette smoking. Pt denies alcoholism. Pt denies anxiety or depression at this time. HPI performed by: Kailee SHRESTHA, August 16, 2019 12:26 PMTransitions of Care InboundProblem ReviewProblem List was reviewed and/or updated during this visit.Medication Reconciliation & ReviewMedication List was reviewed and/or updated during this visit, including review of any hqrp-trz-fyhzwds medications, herbal therapies, and/or supplements.Allergy ReviewAllergy List was reviewed and/or updated during this visit.Provider Calculated and Reviewed all Clinical Protocols for patient today. Review of Systems General: Denies loss of appetite, chills, dizziness, fatigue, fever, continued fever, headache, feeling ill, sweats, night sweats, sleep disturbances, weight loss. Eyes: Denies blurring of vision, double vision, irritation, discharge, vision loss, eye pain, eye swelling, droopy eyelid, sensitivity to light, redness, itching. Ears/Nose/Throat: Denies earache, ear discharge, ringing in ears, decreased hearing, nasal congestion, nosebleeds, runny nose, sore throat, hoarseness, difficulty swallowing, dry mouth, tooth pain, bleeding gums, swollen glands. Cardiovascular: Denies chest pain, palpitations, feeling faint, trouble breathing w/exertion, SOB upon lying down, SOB at night, peripheral edema, elevated blood pressure, decreased heart rate. Respiratory: Denies cough, difficulty breathing, shortness of breath, excessive sputum, coughing up blood, wheezing, chest pain. Gastrointestinal: Denies nausea, vomiting, bleeding, burning, itching, irritation, cramps, diarrhea, constipation. Genitourinary: Denies urinary incontinence, pain with urination, burning with urination, urinary frequency, urinary hesitancy, urinary urgency, urinary urgency at night, incomplete emptying, blood in urine. Musculoskeletal: Denies back pain, joint pain, leg pain, other pain-see comments, joint swelling, body aches, muscle aches, muscle cramps, muscle weakness, stiffness, recent injury. Skin: Denies rash, hives, redness, itching, dryness, nail changes, suspicious lesions, athlete's foot, rash on palms, rash on bottom of feet. Neurologic: Denies muscle impairment, weakness, numbness/tingling, seizures, slurred speech, feeling faint, tremors, vertigo, paralysis on one side, paralysis on both sides. Psychiatric: Denies depression, anxiety, memory loss, mental disturbance, suicidal ideation, homicidal ideation, hallucinations, paranoia, feeling stressed, hearing voices. Endocrine: Denies cold intolerance, heat intolerance, excessive thirst, excessive hunger, excessive urination, weight loss, weight gain. Heme/Lymphatic: Denies abnormal bruising, bleeding, enlarged lymph nodes. Physical ExamJudgment & Insight: intactCare Management Plan Transitions of CareInboundRate Your HealthIn general, would you say your health is? GoodAssessment & Plan Problems:Added: Person consulting for explanation of examination or test findings (ICD-V65.8) (OKR16-X10.2) Assessment: Instructions: We havre reviewed your lab results with you today. results indicates increased renal failure. We will make a referral to nephology for you today. We will contact you to set this up.Acute kidney failure, unspecified (HKK70-S90.9) Assessment: Referral made to Nephro. Spoke with Nepho HEAD REFRIGERATING ENGINEER Anamika. Instructions: Recent labs indicates acute renal failure. We have made a referral to Nephrology for you today. Please stop taking Metformin and Lisinopril. Please try to limit foods rich in potassium. Please try to avoid added sodium. Please try to avoid taking Nsaids such as Ibuprofen, Aleve, Motrin or AdvilPlease try to maintain adequate water intake daily.Essential hypertension (ICD-401.9) (UCO47-B77) Assessment: Instructions: recent lab results indicates acute renal failure. Please stop taking lisinopril. We have increased your amlodipine to 5mg daily.Assessed:Hyperlipidemia (ICD-272.4) (SSK64-H91.5) Assessment: Instructions: Please continue medications as prescribed. Please continue healthy lifestyle changes to include limiting sugars, carbohydrates, fats and sodium in your diet.Type 2 diabetes mellitus without complications (TPZ91-C83.9) Assessment: Instructions: Your HGA1c is 7.6. Your Kidney Function is elevated. Please stop taking your Metformin at this time. May increase your Basaglar insulin to 60 units at nights. Please continue admelog per sliding scale. Please continue trulicity weekly. Please con tinue healthy diet and physical activities. Please continue to limit sugars carb ohydrates and added fats in your diet.Cannabis use, unspecified, uncomplicated (CBO05-A75.90) Assessment: Instructions: marijuana use is still an illicit substance in the [facility]. This may also interact with prescribed medications. Please try to avoid use.Patient Instructions/Care Plan: Person consulting for explanation of examination or test findings: We havre reviewed your lab results with you today. results indicates increased renal failure. We will make a referral to nephology for you today. We will contact you to set this up.Hyperlipidemia: Please continue medications as prescribed. Please continue healthy lifestyle changes to include limiting sugars, carbohydrates, fats and sodium in your diet.Type 2 diabetes mellitus without complications: Your HGA1c is 7.6. Your Kidney Function is elevated. Please stop taking your Metformin at this time. May increase your Basaglar insulin to 60 units at nights. Please continue admelog per sliding scale. Please continue trulicity weekly. Please con tinue healthy diet and physical activities. Please continue to limit sugars carbohydrates and added fats in your diet.Acute kidney failure- unspecified: Recent labs indicates acute renal failure. We have made a referral to Nephrology for you today. Please stop taking Metformin and Lisinopril. Please try to limit foods rich in potassium. Please try to avoid added sodium. Please try to avoid taking Nsaids such as Ibuprofen, Aleve, Motrin or AdvilPlease try to maintain adequate water intake daily.Cannabis use- unspecified- uncomplicated: marijuana use is still an illicit substance in the [facility]. This may also interact with prescribed medications. Please try to avoid use.Essential hypertension: recent lab results indicates acute renal failure. Please stop taking lisinopril. We have increased your amlodipine to 5mg daily. Plan developed in collaboration with patient and/or familyMedications:TRIAMCINOLONE ACETONIDE 0.1 % EXTERNAL OINTMENTBD PEN NEEDLE DANICA U/F 32G X 4 MMOMEPRAZOLE 40 MG ORAL CAPSULE DELAYED RELEASETRULICITY 1.5 MG/0.5ML SUBCUTANEOUS SOLUTION PEN-INJECTORASPIRIN 81 81 MG ORAL TABLET DELAYED RELEASEADMELOG 100 UNIT/ML SUBCUTANEOUS SOLUTIONBASAGLAR KWIKPEN 100 UNIT/ML SUBCUTANEOUS SOLUTION PEN-INJECTORLEVOTHYROXINE SODIUM 25 MCG ORAL TABLETGABAPENTIN 300 MG ORAL CAPSULESERTRALINE HCL 50 MG ORAL TABLETSERTRALINE HCL 100 MG ORAL TABLETROSUVASTATIN CALCIUM 5 MG ORAL TABLETFENOFIBRATE 134 MG ORAL CAPSULECLONIDINE HCL 0.1 MG ORAL TABLETNORVASC 5 MG ORAL TABLETMedication Changes:Refilled:NORVASC 5 MG ORAL TABLET-Take one tablet by mouth daily Qty: 30[Tablet] Refills: 1 Method: ElectronicRemoved:LISINOPRIL 20 MG ORAL TABLET-1 tab by mouth every day Qty: 30[Tablet] Refills: 5, METFORMIN HCL 500 MG ORAL TABLET-1 tab by mouth twice per day Qty: 60[Tablet] Refills: 2Changed:From: ORAL AMLODIPINE BESYLATE 2.5 MG ORAL TABLET Qty: [id number] Refills: 30[Tablet] To: NORVASC 5 MG ORAL TABLET-Take one tablet by mouth daily Qty: 30[Tablet] Refills: 1Allergies:* ATORVASTATIN (Moderate)Orders:Nephrology Consult [CPT-12839] Adult - Ofc Vst, EST, Level IV [CPT-26843] Follow-Up Return to clinic: 1 month for follow up Medications:Cancelled METFORMIN HCL 500 MG ORAL TABLET (METFORMIN HCL) 1 tab by mouth twice per day #60[Tablet] x 2 Route:ORAL Entered and Authorized by: Kailee SHRESTHA Method used: Electronically to [facility]* (retail) [address] [place] [id number] RxID: [id number] LISINOPRIL 20 MG ORAL TABLET (LISINOPRIL) 1 tab by mouth every day #30[Tablet] x 5 Entered by: Kailee SHRESTHA Authorized by: Marguerite DUBON Method used: Electronically to [facility] (retail) [address] [place], [place] [id number] RxID: [id number] 5 MG ORAL TABLET (AMLODIPINE BESYLATE) Take one tablet by mouth daily #30[Tablet] x 1 Route:ORAL Entered and Authorized by: Kailee SHRESTHA Method used: Electronically to [facility]* (retail) [address] [place] [address] Note to Pharmacy: Route: ORAL; Indications: ESSENTIAL HYPERTENSION RxID: [id number] signed by Kailee SHRESTHA on 08/16/2019 at 1:33 PM Histor y of Present Illness (HPI)telephone visit 25 minutesAssessment & Plan Problems:Assessed:Person consulting for explanation of examination or test findings (ICD-V65.8) (ILG57-G98.2) Assessment: Telephone visit 25 minutesOrders:Telephone E&M 21-30 min Medical Discussion [CPT-37965] Name Value Range Interpretation Code Description Data Cary rce(s) Supporting Document(s) ID Date Data Source [id number] 08/09/2019 09:44:[address] [facility] In-House Urine TestsDate/Time Colle cted: August 09, 2019 9:44 AMTest Result Reference Range Normal ValueComments: urine collected in office.Charmaine Nguyen, August 09, 2019 9:44 AMBlood TestsDate/Time Collected: August 09, 2019 9:35 AMTest Result Reference Range Normal ValueComments: blood draw done in office, taken from left ac, tolerated well.Charmaine Murillomahesh, August 09, 2019 9:45 AMAssessment & Plan Orders:[id number] Vst-Est Level I [CPT-17969] 09234 - Venipuncture [CPT-74050] Name Value Range Interpretation Code Description Data Cary rce(s) Supporting Document(s) ID Date Data Source [id number] 08/09/2019 09:35:[address] [facility] Name Value Range Interpretation Code Description Data Cary rce(s) Supporting Document(s) VIT D25 TOT 15.9 ng/mL 30.0-100.0 L [facility] BG FASTING 212 mg/dL 70-100 H [facility] T4, FREE 1.47 ng/dL 0.76-1.46 H [facility] TSH 1.560 microintl units/mL 0.358-3.740 N [facility] ID Date Data Source [id number] 08/09/2019 09:35:[address] [facility] Name Value Range Interpretation Code Description Data Cary rce(s) Supporting Document(s) HCT 42.7 % 42.0-52.[address] [facility] HGB 14.3 g/dL 13.5-17.[address] [facility] MCH 33.5 G/DL pg 32.0-36.5 N [facility] MCHC 29.4 PG % 27.0-33.[address] [facility] PLATELETS 306 10 10*3/mm3 150-[address] [facility] RBC 4.87 10 10*6/mm3 4.30-6.[address] [facility] RDW 15.1 % 11.5-14.[address] [facility] WBC TOTAL 13.8 4.0-10.[address] [facility] ID Date Data Source [id number] 08/09/2019 09:35:[address] [facility] Name Value Range Interpretation Code Description Data Cary rce(s) Supporting Document(s) HGBA1C 7.6 % N [facility] ID Date Data Source [id number] 08/02/2019 02:36:[address] [facility] Measurements & CalculationsHeight: 67 inches (5 ft. 7 in.) 170.18 cm Weight: 232 pounds 105.45 kg Body Mass Index (BMI): 36.47BMI Interpretation: ObeseBody Surface Area (BSA): 2.16Weight Management Education Done (Nutrition/Physical Activity)Vital SignsTemperature: 98.8F oral Pulse Rate: 95 beats/minuteRespiratory Rate: 18 respirations/minuteBlood Pressure: 136/87 left arm sitting automaticO2 Saturation: 100% room airVital Signs performed by: Fawad Woodall MA, August 02, 2019 2:54 PMInitial Intake Information from: patientRoom #: 9Smoking, Tobacco, Vaping or Smoke Exposure StatusSmoke Status: never smokerTobacco Use: NoDo you vape? NoPassive Smoke Exposure: NoHealthcare HistorySince your last office visit...Have you been admitted to the hospital? NoHave you been to an emergency room (ER) or urgent care clinic? NoHave you seen another healthcare provider? Yes - mateus hernandez you seen a dentist? NoIntake performed by: Fawad Woodall MA, August 02, 2019 2:40 PMRate Your HealthIn general, would you say your health is? GoodPain AssessmentAre you currently having any pain which... You would like your provider to address? No Affects your activity level? NoDepression Screening - PHQ-2Over the last two weeks, have you... Had little interest or pleasure in doing things? Not at all Been feeling down, depressed, or hopeless? Not at all PHQ-2 Score: 0Anxiety Screening - SERGEY-2Over the last two weeks, have you been... Feeling nervous, anxious, or on edge? Not at all Unable to stop or control worrying? Not at all SERGEY-2 Score: 0Food InsecurityWithin the past year...Did you worry whether your food would run out before you got money to buy more? NoWas there a time when the food you bought didn't last and you didn't have money to get more? NoInfectious Disease / Travel ScreeningRecent travel for you or any close contacts? NoHave you had any close contact with anyone di agnosed with or under investigation for COVID-19 (coronavirus)? NoHave you had any of the following symptoms recently? Fever? NoRespiratory symptoms: cough, cold, congestion, shortness of breath, difficulty breathing? NoPRAPARE Sociodemographic Characteristics Race: White Ethnicity: Not or Preferred Language: EnglishFamily and Home Address: [address] [place] [address] What is your housing situation today? I have housing Are you worried about losing your housing? NoMoney and Resources What is the highest level of school that you have finished? high school graduate Employed? No Are you seeking work? No Insurance: Managed Care FidelisIn the past year, have you or any family members you live with been unable to get any of the following when it was really needed? Denies Insecurity: food, utilities, clothing, child welfare caseworker, phone, legal services, otherWithin the past year did you worry whether your food would run out before you got money to buy m ore? NoWithin the past year was there a time when the food you bought didn't last and you didn't have money to get more? NoIn the past year, have you had trouble affording costs associated with health insurance (such as deductibles, co-payments, etc.)? NoSocial and Emotional Health How often do you see or talk to people that you care about and feel close to? 3 to 5 times a week How stressed are you? A little bitAdditional Optional Domains In the past 3 months, have you spent more than 2 nights in a row in a group home, detention, snf center or juvenile correctional facility? No Has lack of transportation kept you from medical appointments or from getting your medications? NoIn the past year, have you had trouble getting any of the following when it was really needed (check all that apply)?noneIn the past year, have you had trouble paying the costs associated with health care or medicine (such as co-payments, costs for services, prices of medicines)? NoHow confident are you that you can control and manage most of your health problems? Very confident Are you a refugee? No (Country of origin: [place] [facility] [facility]) Do you feel physically and emotionally safe where you live? Yes In the past year, have you been afraid of a partner, ex-partner? NoScreening, Brief Intervention, & Referral to Treatment (SBIRT)Pre-Screening Questions How many times have you have 5 or more drinks in a day? 0How many times have you used an illegal drug or used a prescription medication for a non-medical reason? 0Performed by: Fawad Woodall MA, August 02, 2019 2:45 PMPatient History Medical History:Diabetes Type IIDepressionAnxietyHigh cholesterolHypertensionHypothyroidismGlacomaSurgical History:R Eye Removal - Due to DiabetesLaser SurgeryFamily History:Diabetes (Mother)Hypertension (Mother, Father)Heart disease (Father)High cholesterol (Mother, Father)Hx of cancer, unsure of the type Social/Personal History: Chief Complaintannual exam RM 9 History of Present Illness (HPI)34 yr old male Pt here today for annual exam. Pt denies pain at this time. Pt state lost vision to right eye 2 years ago. 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 Pt states now having some vion trouble to left eye. Pt states will call call to make an appointment with opthamalogist. Pt states medication compliance. Pt states healthy diet and physical activities. Pt states blood sugars 160s to 200s. Pt states smokes marijuana frequentlyPt denies cigarette smoking. Pt denies alcoholism.HPI performed by: Kailee SHRESTHA, August 02, 2019 3:33 PMTransitions of Care InboundProblem ReviewProblem List was reviewed and/or updated during this visit.Medication Reconciliation & ReviewMedication List was reviewed and/or updated during this visit, including review of any ngdu-mlc-olywtet medications, herbal therapies, and/or supplements.Allergy ReviewAllergy List was reviewed and/or updated during this visit.Adult Preventive CareProvider Calculated and Reviewed all Clinical Protocols for patient today. Labs/Meds/Other Counseling-Nutrition and Physical Activity:BMI Interpretation: Obese (08/02/2019) Counseling: Done (08/02/2019) Physical Activity: Done (08/02/2019)Review of Systems General: Denies loss of appetite, chills, dizziness, fatigue, fever, continued fever, headache, feeling ill, sweats, night sweats, sleep disturbances, weight loss. Eyes: Complains of blurring of vision, vision loss. Denies double vision, irritation, discharge, eye pain, eye swelling, droopy eyelid, sensitivity to light, redness, itching. vision loss right eyeEars/Nose/Throat: Denies earache, ear discharge, ringing in ears, decreased hearing, nasal congestion, nosebleeds, runny nose, sore throat, hoarseness, difficulty swallowing, dry mouth, tooth pain, bleeding gums, swollen glands. Cardiovascular: Denies chest pain, palpitations, feeling faint, trouble breathing w/exertion, SOB upon lying down, SOB at night, peripheral edema, elevated blood pressure, decreased heart rate. Respiratory: Denies cough, difficulty breathing, shortness of breath, excessive sputum, coughing up blood, wheezing, chest pain. Gastrointestinal: Denies nausea, vomiting, bleeding, burning, itching, irritation, cramps, diarrhea, constipation. Genitourinary: Denies urinary incontinence, pain with urination, burning with urination, urinary frequency, urinary hesitancy, urinary urgency, urinary urgency at night, incomplete emptying, blood in urine, painful intercou rse, decreased libido, impotence, penile discharge, penile sores, genital foul odor, genital sores, genital burning, genital itching, genital warts, anal discharge, anal sores, anal warts. Musculoskeletal: Denies back pain, joint pain, leg pain, other pain-see comments, joint swelling, body aches, muscle aches, muscle cramps, muscle weakness, stiffness, recent injury. Skin: Complains of rash. right leg rash, left foot rashNeurologic: Denies muscle impairment, weakness, numbness/tingling, seizures, slurred speech, feeling faint, tremors, vertigo, paralysis on one side, paralysis on both sides. Psychiatric: Denies depression, anxiety, memory loss, mental disturbance, suicidal ideation, homicidal ideation, hallucinations, paranoia, feeling stressed, hearing voices. Endocrine: Denies cold intolerance, heat intolerance, excessive thirst, excessive hunger, excessive urination, weight loss, weight gain. Physical ExamGeneral Appearance: well nourished, well hydrated, no acute distressEyes, External: conjunctivae and lids normal, EOMIRespiratory, Auscultation: clear to auscultation bilaterally; no rales, rhonchi, or wheezesRespiratory, Effort: no intercostal retractions or use of accessory m usclesCardiovascular, Auscultation: S1, S2 audible; no murmur, rub, or gallop; RRRPeripheral Circulation: no clubbing, cyanosis, edema, or varicositiesAbdomen: soft, non-tender, no masses, bowel sounds normalGait & Station: normalSkin, Inspection: no rashes, lesions, or ulcerationsOrientation: oriented to time, place, and personMood & Affect: no depression, anxiety, or agitationJudgment & Insight: intactCare Management Plan Transitions of CareInboundRate Your HealthIn general, would you say your health is? GoodAssessment & Plan Problems:Added: Atopic dermatitis, unspecified (BHT14-G28.9) Assessment: Instructions: We have sent a prescription to your pharmacy to day. Please use medication as prescribed. Please report any major side effects.Encounter for general adult medical examination with abnormal findings (ICD-V70.0) (VPE08-P79.01) Assessment: Instructions: You have had your annual physical exam done today. Please continue medications as prescribed. Please continue lifestyle changes to include healthy diet and physical activities. Please try to maintain adequate fluid hydration. Please try to maintain adequate intake of Water daily.Cannabis use, unspecified, uncomplicated (CAL89-G75.90) Assessment: Instructions: marijuana use is still an illicit substance in the [facility]. This may also interact with prescribed medications. Please try to avoid use.As sessed:Type 2 diabetes mellitus without complications (JKF60-R56.9) Assessment: Pt states better blood sugar control with trulicity and insulin. Pt states metformin at higer dose increased diarrhea. Took glimperide in the past but affected renal function. Instructions: Please continue medications as prescribed. Please continue lifestyle changes to include healthy diet and physical activities. Please try to limit sugars and carbohydrates in your diet.Patient Instructions/Care Plan: Type 2 diabetes mellitus without complications: Please continue medications as prescribed. Please continue lifest yle changes to include healthy diet and physical activities. Please try to limit sugars and carbohydrates in your diet.Atopic dermatitis- unspecified: We have sent a prescription to your pharmacy to day. Please use medication as prescribed. Please report any major side effects.Encounter for general adult medical examination with abnormal findings: You have had your annual physical exam done today. Please continue medications as prescribed. Please continue lifestyle changes to include healthy diet and physical activities. Please try to maintain adequate fluid hydration. Please try to maintain adequate intake of Water daily.Cannabis use- unspecified- uncomplicated: marijuana use is still an illicit substance in the [facility]. This may also interact with prescribed medications. Please try to avoid use. Plan developed in collaboration with patient and/or familyMedications:TRIAMCINOLONE ACETONIDE 0.1 % EXTERNAL OINTMENTBD PEN NEEDLE DANICA U/F 32G X 4 MMOMEPRAZOLE 40 MG ORAL CAPSULE DELAYED RELEASETRULICITY 1.5 MG/0.5ML SUBCUTANEOUS SOLUTION PEN- INJECTORASPIRIN 81 81 MG ORAL TABLET DELAYED RELEASEADMELOG 100 UNIT/ML SUBCUTANEOUS SOLUTIONBASAGLAR KWIKPEN 100 UNIT/ML SUBCUTANEOUS SOLUTION PEN- INJECTORLEVOTHYROXINE SODIUM 25 MCG ORAL TABLETGABAPENTIN 300 MG ORAL CAPSULESERTRALINE HCL 50 MG ORAL TABLETSERTRALINE HCL 100 MG ORAL TABLETROSUVASTATIN CALCIUM 5 MG ORAL TABLETFENOFIBRATE 134 MG ORAL CAPSULECLONIDINE HCL 0.1 MG ORAL TABLETAMLODIPINE BESYLATE 2.5 MG ORAL TABLETLISINOPRIL 20 MG ORAL TABLETMETFORMIN HCL 500 MG ORAL TABLETMedication Changes:New Prescription:TRIAMCINOLONE ACETONIDE 0.1 % EXTERNAL OINTMENT-apply to affected area twice daily as needed (right leg, left foot) Qty: 2[Tube] Refills: 2 Method: ElectronicRemoved:BD INSULIN SYRINGE U/F 31G X 5/16" 1 ML-use with Admelog qidChanged:From: ORAL ROSUVASTATIN CALCIUM 5 MG ORAL TABLET Qty: [id number] Refills: 30[Tablet] To: ROSUVASTATIN CALCIUM 5 MG ORAL TABLET-1 tab po dailyAllergies:* ATORVASTATIN (Moderate)Orders:COMP METABOLIC PANEL [CPT-66403] CBC W/DIFF [CPT-64255] HgBA1c [CPT-68531] LIPID PANEL [CPT- 13327] TSH [CPT-69396] T-4 free [CPT-83338] Vitamin D 250H Unspecified [CPT- 23639] URINALYSIS [CPT-77978] Microalbumin urine [F1489E,P088184] URINE MICROALBUMIN - QUANTIATIVE [CPT-55561] Preventive, Est, (18-39) [CPT-30865] Follow-Up Return to clinic: 2-3 weeks for follow up Clinical Visit Summary Compl etedVaccines Administered/Entered:Vaccination Group: InfluenzaHistorical Source: Historical information - from patientSeries: 1 NOT GIVENVaccination: Flucelvax Quadrivalent PF (4y+) AdultReason Not Given: Patient decisionEntered Date: 08/02/2019 12:00 AMComments: Pt states he got it at pharmacyEntered by: Fawad Woodall MA Name Value Range Interpretation Code Description Data Cary rce(s) Supporting Document(s) ID Date Data Source [id number] 05/12/2019 03:54:03 PM [facility] Measurements & CalculationsHeight: 67 inches (5 ft. 7 in.) 170.18 cm Weight: 221 pounds 100.45 kg Body Mass Index (BMI): 34.74BMI Interpretation: ObeseBody Surface Area (BSA): 2.11Weight Management Education Done (Nutrition/Physical Activity)Vital SignsTemperature: 97.9FPulse Rate: 87 beats/minuteRespiratory Rate: 18 respirations/minuteBlood Pressure: 139/86 Vital Signs performed by: Rianna Espinoza MA, May 12, 2019 3:59 PMInitial Intake Information from: patientInfectious Disease- Travel Have you or your sexual partner travelled outside of the country recently? NoSmoking, Tobacco or Smoke Exposure StatusSmoke Status: never smokerTobacco Use: NoPassive Smoke Exposure: NoHealthcare HistorySince your last office visit...Have you been admitted to the hospital? NoHave you been to an emergency room (ER) or urgent care clinic? NoHave you seen another healthcare provider? Yes - david, eye drHave you seen a dentist? NoIntake performed by: Rianna Espinoza MA, May 12, 2019 3:56 PMRate Your HealthIn general, would you say your health is? GoodPain AssessmentAre you currently having any pain which... You would like your provider to address? No Affects your activity level? NoDepression Screening - PHQ-2Over the last two weeks, have you... Had little interest or pleasure in doing things? Not at all Been feeling down, depressed, or hopeless? Not at all PHQ-2 Score: 0Anxiety Screening - SERGEY-2Over the last two weeks, have you been... Feeling nervous, anxious, or on edge? Not at all Unable to stop or control worrying? Not at all SERGEY-2 Score: 0Screening, Brief Intervention, & Referral to Treatment (SBIRT)Pre-Screening Questions How many times have you have 5 or more drinks in a day? 0How many times have you used an illegal drug or used a prescription medication for a non-medical reason? 0Performed by: Rianna Espinoza MA, May 12, 2019 3:56 PMPatient History Medical History:Diabetes Type IIDepressionAnxietyHigh cholesterolHypertensionHypothyroidismGlacomaSurgical History:R Eye Removal - Due to DiabetesLaser SurgeryFamily History:Diabetes (Mother)Hypertension (Mother, Father)Heart disease (Father)High cholesterol (Mother, Father)Hx of cancer, unsure of the type Social/Personal History: Smoking Status: never smokerChief Complaintlab results, dm History of Present Illness (HPI)Telemedicine visit with patient's location at [facility] and provider's location at offsite office. Additional person(s)participating in the visit: n/a. Pt here today for follow up of diabetes and lab results. Pt takes Trulicity weekly, metformin 500mg by mouth twice per day, Basaglar 50unit once daily, admelog sliding scale per BG. He brought his meter with him today and his average BGs have been 220-250. He tries to follow a diabetic diet. Labs were reviewed with pt. No acute concerns today.HPI performed by: Marguerite DUBON, May 12, 2019 4:07 PMTransitions of Care InboundProblem ReviewProblem List was reviewed and/or updated during this visit.Medication Reconciliation & ReviewMedication List was reviewed and/or updated during this visit, including review of any uklk-ays-diznpte medications, herbal therapies, and/or supplements.Allergy ReviewAllergy List was reviewed and/or updated during this visit.Adult Preventive CareProvider Calculated and Reviewed all Clinical Protocols for patient today. Labs/Meds/Other Counseling- Nutrition and Physical Activity:BMI Interpretation: Obese (05/12/2019) Counseling: Done (05/12/2019) Physical Activity: Done (05/12/2019)Review of Systems General: Denies chills, fever, headache, feeling ill, sweats, night sweats, sleep disturbances. Cardiovascular: Denies chest pain, palpitations, feeling faint. Respiratory: Denies cough, shortness of breath. Gastrointestinal: Denies nausea, vomiting, diarrhea, constipation, abdominal pain. Psychiatric: Complains of depression, anxiety. Physical ExamGeneral Appearance: well nourished, well hydrated, no acute distressEyes, External: conjunctivae and lids normal, EOMIRespiratory, Effort: no intercostal retractions or use of accessory musclesGait & Station: normalOrientation: oriented to time, place, and personMood & Affect: no depression, anxiety, or agitationJudgment & Insight: intactCare Management Plan Transitions of CareInboundRate Your HealthIn general, would you say your health is? GoodAssessment & Plan Problems:Added: Renal insufficiency (ICD-593.9) (ICD10- N28.9) Assessment: Instructions: Please return to clinic for blood work in 2-3 weeks to recheck kidney function.Leukocytosis (ICD-288.60) (NNZ94-D05.829) Assessment: Instructions: I believe your leukocytosis to be from your chronic foot ulcer or your dental issues. We will continue to monitor it.Leukocytosis (ICD-288.60) (RAM62-C23.829) Assessment: LIkely from chronic diabetic ulcer or dental issues, needs recheck in 3 months.Renal insufficiency (ICD-593.9) (ICD10- N28.9) Assessment: According to old records has dx of CKD3 and has seen a home economics teacher in the past. Advised to try to get his BG and BP under control and recheck in 4 weeks. If not improved, pt should be referred to renal.Assessed:Type 2 diabetes mellitus without complications (JGT35-O07.9) Assessment: Instructions: Your prescriptions have been sent to your preferred pharmacy electronically, please take them as prescribed and report any significant side effects. Please increase Trulicity to 1.5mg weekly.Keep track of your blood sugars and bring your log or meter with you to your next visit.Type 2 diabetes mellitus without complications (UGY18-K09.9) Assessment: A1c not at goal. Increase Trulicity to 1.5mg weekly and continue with Basaglar and Admelog doses. Not clear why he has not maxxed out his oral meds before starting insulin. Will attempt to get him on oral meds and wean off insulin if possible.Patient Instructions/Care Plan: Renal insufficiency: Please return to clinic for blood work in 2-3 weeks to recheck kidney function.Type 2 diabetes mellitus without complications: Your prescriptions have been sent to your preferred pharmacy electronically, please take them as prescribed and report any significant side effects. Please increase Trulicity to 1.5mg weekly.Keep track of your blood sugars and bring your log or meter with you to your next visit.Leukocytosis: I believe your leukocytosis to be from your chronic foot ulc er or your dental issues. We will continue to monitor it. Plan developed in collaboration with patient and/or familyMedications:LANCETSBD INSULIN SYRINGE U/F 31G X 5/16" 1 MLBD PEN NEEDLE DANICA U/F 32G X 4 MMOMEPRAZOLE 40 MG ORAL CAPSULE DELAYED RELEASETRULICITY 1.5 MG/0.5ML SUBCUTANEOUS SOLUTION PEN-INJECTORASPIRIN 81 81 MG ORAL TABLET DELAYED RELEASEADMELOG 100 UNIT/ML SUBCUTANEOUS SOLUTIONBASAGLAR KWIKPEN 100 UNIT/ML SUBCUTANEOUS SOLUTION PEN- INJECTORLEVOTHYROXINE SODIUM 25 MCG ORAL TABLETGABAPENTIN 300 MG ORAL CAPSULESERTRALINE HCL 50 MG ORAL TABLETSERTRALINE HCL 100 MG ORAL TABLETR OSUVASTATIN CALCIUM 5 MG ORAL TABLETFENOFIBRATE 134 MG ORAL CAPSULECLONIDINE HCL 0.1 MG ORAL TABLETAMLODIPINE BESYLATE 2.5 MG ORAL TABLETLISINOPRIL 20 MG ORAL TABLETMETFORMIN HCL 500 MG ORAL TABLETMedication Changes:Refilled:TRULICITY 1.5 MG/0.5ML SUBCUTANEOUS SOLUTION CZK-ZPVCNJIH-lsocug 1.5 mg SQ weekly Qty: 4[Prefilled Pen Syrnge] Refills: 5 Method: ElectronicSERTRALINE HCL 50 MG ORAL TABLET-1 tab by mouth every day Qty: 30[Tablet] Refills: 5 Method: ElectronicASPIRIN 81 81 MG ORAL TABLET DELAYED RELEASE-1 po daily Qty: 90[Tablet] Refills: 3 Method: ElectronicGABAPENTIN 300 MG ORAL CAPSULE-po TID Qty: 90[Capsule] Refills: 5 Method: ElectronicLISINOPRIL 20 MG ORAL TABLET-1 tab by mouth every day Qty: 30[Tablet] Refills: 5 Method: ElectronicSERTRALINE HCL 100 MG ORAL TABLET-1 tab by mouth every day Qty: 30[Tablet] Refills: 5 Method: ElectronicRemoved:TRULICITY 0.75 MG/0.5ML SUBCUTANEOUS SOLUTION ZOQ-MWABFMCR-9.75 mg SQ weekly- if tolerated, contact MD regarding inc to 1.5 after 1 month Qty: 4[Prefilled Pen Syrnge] Refills: 5Changed: To: LISINOPRIL 20 MG ORAL TABLET-1 tab by mouth every day Qty: 30[Tablet] Refills: 5 To: SERTRALINE HCL 100 MG ORAL TABLET-1 tab by mouth every day Qty: 30[Tablet] Refills: 5Allergies:* ATORVASTATIN (Moderate)Orders:Office Visit - Established, Level 3 [CPT-08372ZI] Follow-Up Return to clinic: 4 weeks for follow up of diabetes and labs Clinical Visit Summary CompletedMedications:SERTRALINE HCL 100 MG ORAL TABLET (SERTRALINE HCL) 1 tab by mouth every day #30[Tablet] x 5 Entered and Authorized by: Marguerite DUBON Method used: Electronically to [facility]* (retail) [address] [place] [address] Note to Pharmacy: Route: ORAL; RxID: [id number] 20 MG ORAL TABLET (LISINOPRIL) 1 tab by mouth every day #30[Tablet] x 5 Entered and Authorized by: Marguerite DUBON Method used: Electronically to [facility]* (retail) [address] [place] [address] Note to Pharmacy: Route: ORAL; RxID: [id number] 300 MG ORAL CAPSULE (GABAPENTIN) po TID #90[Capsule] x 5 Route:ORAL Entered and Authorized by: Marguerite DUBON [facility] [address] [place] [address] Note to Pharmacy: Route: ORAL; RxID: [id number] 81 81 MG ORAL TABLET DELAYED RELEASE (ASPIRIN) 1 po daily #90[Tablet] x 3 Route:ORAL Entered and Authorized by: Marguerite DUBON Method used: Electronically to [facility]* (retail) [address] [place] [address] Note to Pharmacy: Route: ORAL; RxID: [id number] 50 MG ORAL TABLET (SERTRALINE HCL) 1 tab by mouth every day #30[Tablet] x 5 Route:ORAL Entered and Authorized by: Marguerite DUBON Method used: Electronically to [facility]* (retail) [address] [place] [address] Note to Pharmacy: Route: ORAL; RxID: [id number] 1.5 MG/0.5ML SUBCUTANEOUS SOLUTION PEN-INJECTOR (DULAGLUTIDE) inject 1.5 mg SQ weekly #4[Prefilled Pen Syrnge] x 5 Route:SUBCUTANEOUS Entered and Authorized by: Marguerite DUBON Method used: Electronically to [facility]* (retail) [address] [place] [address] Note to Pharmacy: Route: SC; RxID: [id number] TRULICITY 0.75 MG/0.5ML SUBCUTANEOUS SOLUTION PEN- INJECTOR (DULAGLUTIDE) 0.75 mg SQ weekly- if tolerated, contact regarding inc to 1.5 after 1 month #4[Prefilled Pen Syrnge] x 5 Route:SUBCUTANEOUS Entered by: Marguerite DUBON Authorized by: Alexia Aguilar MD Method used: Electronically to [facility]* (retail) [address] [place] [address] Fax: RxID: [id number] signed by Marguerite DUBON on 05/13/2019 at 12:02 PM Name Value Range Interpretation Code Description Data Cary rce(s) Supporting Document(s) ID Date Data Source [id number] 04/22/2019 11:07:[address] [facility] In-House Blood TestsDate/Time Colle cted: April 22, 2019 11:08 AMTest Result Reference Range Normal ValueComments: blood draw done in offcie done in the left ac tolerated well George Hopkins MA, April 22, 2019 11:08 AMAssessment & Plan Orders:[id number] Vst-Est Level I [CPT-79224] 11246 - Venipuncture [CPT-71138] Name Value Range Interpretation Code Description Data Cary rce(s) Supporting Document(s) ID Date Data Source [id number] 04/22/2019 09:20:[address] [facility] Name Value Range Interpretation Code Description Data Cary rce(s) Supporting Document(s) HCT 40.6 % 42.0-52.[address] [facility] HGB 13.6 g/dL 13.5-17.[address] [facility] MCH 33.5 G/DL pg 32.0-36.5 N [facility] MCHC 28.4 PG % 27.0-33.0 [facility] PLATELETS 343 10 10*3/mm3 150-[address] [facility] RBC 4.79 10 10*6/mm3 4.30-6.[address] [facility] RDW 14.3 % 11.5-14.5 [facility] WBC TOTAL 13.5 4.0-10.[address] [facility] ID Date Data Source [id number] 04/22/2019 09:20:[address] [facility] Name Value Range Interpretation Code Description Data Cary rce(s) Supporting Document(s) HGBA1C 7.9 % N [facility] ID Date Data Source [id number] 04/22/2019 09:20:[address] [facility] Name Value Range Interpretation Code Description Data Cary rce(s) Supporting Document(s) VIT D25 TOT 19.9 ng/mL 30.0-100.0 L [facility] BG FASTING 223 mg/dL 70-100 H [facility] T4, FREE 1.17 ng/dL 0.76-1.46 N [facility] TSH 2.300 microintl units/mL 0.358-3.740 N [facility] Procedure Vital Signs ID Date Data Source UNK Name Value Range Interpretation Code Description Data Source(s) Body mass index (BMI) [Ratio] 35.2 kg/m2 35.2 k g/m2 [facility] Heart rate 81 /min 81 /min [facility] ([facility] Diastolic blood pressure 84 mm[Hg] 84 mm[Hg] [facility] ([facility] Systolic blood pressure 160 mm[Hg] 160 mm[Hg] M [facility] ([facility] Body weight 225.00 [lb_av] 225.00 [lb_av] MEDEN T ([facility] Body height 67 [in_i] 67 [in_i] [facility] ([facility] 5'7" Patient Treatment Plan of Care Planned Activity Planned Date Details Description Data Source (s) 24 HR Metformin hydrochloride 500 MG Extended Release Oral Tablet 08/16/2018 12:00:00 AM EDT [facility] Rosuvastatin calcium 5 MG Oral Tablet 08/16/2018 12:00:00 AM [facility]
--- OUTSIDE RECORDS SUMMARY | 2020-05-23 16:52 | CCD ---
Author Author [facility] Organization [facility] Address Unknown Phone Unavailable Care Team Providers Care Punch Press Operator Helper Name Role Phone Lida HERNANDEZ DPM Unavailable Unavailable Lida HERNANDEZ DPM Unavailable Unavailable Lida HERNANDEZ DPM Unavailable Unavailable Lida HERNANDEZ DPM Unavailable Unavailable Lida HERNANDEZ DPM Unavailable Unavailable Lida HERNANDEZ DPM Unavailable Unavailable Lida HERNANDEZ DPM Unavailable Unavailable Lida HERNANDEZ DPM Unavailable Unavailable Lida HERNANDEZ DPM Unavailable Unavailable Lida HERNANDEZ DPM Unavailable Unavailable Lida HERNANDEZ DPM Unavailable Unavailable Lida HENRANDEZ DPM Unavailable Unavailable Lida HERNANDEZW DPM Unavailable [...] Unavailable Unavailable Delmy AGUILAR MD Unavailable Unavailable Dlemy AGUILAR MD Unavailable Unavailable Delmy AGUILAR MD Unavailable Unavailable Delmy AGUILAR MD Unavailable Unavailable Delmy AUGILAR MD Unavailable Unavailable Delmy AGUILAR MD Unavailable [...] Unavailable Delmy AGUILAR MD Unavailable Unavailable Delmy AGULIAR MD Unavailable Unavailable Delmy AGUILAR MD Unavailable [...] Unavailable DEVENDRA, YANPING Unavailable Unavailable Jamar, Kailee PRODUCTION SUPPORT DEVELOPER PRODUCTION SUPPORT DEVELOPER Unavailable Unavailable Jamar, A Kailee PRODUCTION SUPPORT DEVELOPER Unavailable Unavailable Jamar, A Kailee PRODUCTION SUPPORT DEVELOPER Unavailable Unavailable Jamar, A Kailee PRODUCTION SUPPORT DEVELOPER Unavailable Unavailable Jamar, A Kailee PRODUCTION SUPPORT DEVELOPER Unavailable Unavailable Jamar, A Kailee PRODUCTION SUPPORT DEVELOPER Unavailable Unavailable Jamar, A Kailee PRODUCTION SUPPORT DEVELOPER Unavailable Unavailable Jamar, A Kailee PRODUCTION SUPPORT DEVELOPER Unavailable Unavailable Jamar, A Kailee PRODUCTION SUPPORT DEVELOPER Unavailable Unavailable Jamar, A Kailee PRODUCTION SUPPORT DEVELOPER Unavailable Unavailable Jamar, A Kailee PRODUCTION SUPPORT DEVELOPER Unavailable Unavailable Jamar, A Kailee PRODUCTION SUPPORT DEVELOPER Unavailable Unavailable Jamar, A Kailee PRODUCTION SUPPORT DEVELOPER Unavailable Unavailable Jamar, A Kailee PRODUCTION SUPPORT DEVELOPER Unavailable Unavailable Jamar, A Kailee PRODUCTION SUPPORT DEVELOPER Unavailable Unavailable Jamar, A Kailee PRODUCTION SUPPORT DEVELOPER Unavailable Unavailable Jamar, A Kailee PRODUCTION SUPPORT DEVELOPER Unavailable Unavailable Jamar, A Kailee PRODUCTION SUPPORT DEVELOPER Unavailable Unavailable Jamar, A Kailee PRODUCTION SUPPORT DEVELOPER Unavailable Unavailable Jamar, A Kailee PRODUCTION SUPPORT DEVELOPER Unavailable Unavailable Jamar, A Kailee PRODUCTION SUPPORT DEVELOPER Unavailable Unavailable Jamar, A Kailee PRODUCTION SUPPORT DEVELOPER Unavailable Unavailable Jamar, A Kailee PRODUCTION SUPPORT DEVELOPER Unavailable Unavailable Jamar, A Kailee PRODUCTION SUPPORT DEVELOPER Unavailable Unavailable Jamar, A Kailee PRODUCTION SUPPORT DEVELOPER Unavailable Unavailable Jamar, A Kailee PRODUCTION SUPPORT DEVELOPER Unavailable Unavailable Jamar, A Kailee PRODUCTION SUPPORT DEVELOPER Unavailable Unavailable Jamar, A Kailee PRODUCTION SUPPORT DEVELOPER Unavailable Unavailable Jamar, A Kailee PRODUCTION SUPPORT DEVELOPER Unavailable Unavailable Re-disclosure Warning The records that [...] is protected by Article 27-F of the [facility] Public Health law. If you continue you may have access to information: Regarding HIV / AIDS; Provided by facilities licensed or operated by the [facility] Office of Mental Health; or Provided by the [facility] Office for People With Developmental Disabilities. If such information is present, then the following [facility] mandated warning applies: This information has [...] law may result in a fine or halfway sentence or both. A general authorization for the release of medical or other information is NOT sufficient authorization for further disc losure. Family History Family Member Name Family Member Gender Family Member Status Date o f Status Description Data Source(s) Unknown Unknown Problem [facility] (Dr. Kourtney Bee) Unknown Male Problem [facility] ([facility] Encounters Encounter Providers Location Date Indications Data Source(s ) Outpatient Attender: Kailee SHRESTHA 01/30/2020 08:5 0:00 PM EDT [facility] Outpatient Attender: Kailee SHRESTHA 01/25/2020 08:3 1:01 AM EDT [facility] Outpatient Attender: Kailee SHRESTHA 01/11/2020 06:5 9:01 PM EDT [facility] Outpatient Attender: Kailee SHRESTHA 01/11/2020 06:5 9:01 PM EDT [facility] Outpatient Attender: Kailee SHRESTHA 12/30/2019 11:3 8:00 AM EDT [facility] Outpatient Attender: Kailee SHRESTHA 12/29/2019 01:4 2:02 PM EDT [facility] Outpatient Attender: Kailee SHRESTHA 12/23/2019 05:2 6:59 PM EDT [facility] Outpatient Attender: Kailee SHRESTHA 12/20/2019 06:0 6:00 PM EDT [facility] Outpatient Attender: HENRIETTA SHRESTHA 12/15/2019 12:29:02 P M EDT [facility] Outpatient Attender: Kailee SHRESTHA 12/15/2019 12:2 9:01 PM EDT [facility] Outpatient Attender: HENRIETTA SHRESTHA 12/15/2019 12:28:01 P M EDT [facility] Outpatient Attender: HENRIETTA SHRESTHA FP 12/15/2019 12:28:01 P M EDT [facility] Outpatient Attender: Kailee SHRESTHA 12/15/2019 12:2 8:00 PM EDT [facility] Outpatient Attender: Kailee SHRESTHA 12/15/2019 11:5 0:02 AM EDT [facility] Outpatient Attender: HENRIETTA SHRESTHA 12/15/2019 10:35:01 A M EDT [facility] Outpatient Attender: HENRIETTA SHRESTHA FP 12/14/2019 09:22:01 A M EDT [facility] Outpatient Attender: Kailee GILLETTEP FP 12/12/2019 12:0 7:59 AM EDT [facility] Outpatient Attender: Kailee GILLETTEP FP 12/06/2019 10:0 5:01 PM EDT [facility] Outpatient Attender: HENRIETTA GILLETTEP FP 12/06/2019 10:05:00 P M EDT [facility] Outpatient Attender: Kailee GILLETTEP FP 11/23/2019 12:0 0:40 AM EDT [facility] Outpatient Attender: HENRIETTA GILLETTEP FP 11/19/2019 03:36:03 P M EDT [facility] Outpatient Attender: Kailee GILLETTEP FP 11/19/2019 03:3 4:59 PM EDT [facility] Outpatient Attender: HENRIETTA GILLETTEP FP 11/17/2019 07:40:00 A M EDT [facility] Outpatient Attender: HENRIETTA GILLETTEP FP 11/15/2019 12:30:02 P M EDT [facility] Outpatient Attender: HENRIETTA GILLETTEP FP 11/14/2019 10:11:01 A M EDT [facility] Outpatient Attender: Kailee GILLETTEP FP 11/11/2019 05:1 1:01 PM EDT [facility] Outpatient Attender: HENRIETTA GILLETTEP FP 11/08/2019 09:53:00 A M EDT [facility] Outpatient Attender: HENRIETTA GILLETTEP FP 11/07/2019 12:45:00 P M EDT [facility] Outpatient Attender: Kailee GILLETTEP FP 11/04/2019 03:5 7:00 PM EDT [facility] Outpatient Attender: HENRIETTA GILLETTEP FP 11/04/2019 03:54:00 P M EDT [facility] Outpatient Attender: Kailee GILLETTEP FP 11/02/2019 01:2 8:00 PM EDT [facility] Outpatient Attender: Kailee GILLETTEP FP 10/31/2019 01:5 8:00 AM EDT [facility] Outpatient Attender: Kailee GILLETTEP FP 10/25/2019 10:4 8:01 PM EDT [facility] Outpatient Attender: HENRIETTA GILLETTEP FP 10/25/2019 02:50:00 P M EDT [facility] Outpatient Attender: Kailee GILLETTEP FP 10/12/2019 07:2 0:01 PM EDT [facility] Outpatient Attender: HENRIETTA GILLETTEP FP 10/12/2019 01:40:00 P M EDT [facility] Outpatient Attender: Kailee IGLLETTEP FP 09/30/2019 07:4 6:01 AM EDT [facility] Outpatient 09/27/2019 05:31:00 AM EDT [facility] Outpatient Attender: Kailee GILLETTEP FP 09/15/2019 11:2 9:00 AM EDT [facility] Outpatient Attender: Kailee GILLETTEP FP 09/11/2019 11:4 9:01 PM EDT [facility] Outpatient Attender: HENRIETTA GILLETTEP FP 09/11/2019 11:48:59 P M EDT [facility] Outpatient Attender: HENRIETTA GILLETTEP FP 09/06/2019 01:40:00 P M EDT [facility] Outpatient Attender: Kailee GILLETTEP FP 09/04/2019 07:4 7:59 PM EDT [facility] Outpatient Attender: Kailee GILLETTEP FP 09/01/2019 06:4 6:01 PM EDT [facility] Outpatient Attender: HENRIETTA GILLETTEP FP 09/01/2019 07:51:23 A M EDT [facility] Outpatient Attender: Kailee SHRESTHA FP 08/31/2019 06:5 9:00 PM EDT [facility] Outpatient Attender: HENRIETTA GILLETTEP FP 08/31/2019 06:54:02 P M EDT [facility] Outpatient Attender: Kailee SHRESTHA FP 08/31/2019 06:5 3:01 PM EDT [facility] Outpatient Attender: HENRIETTA SHRESTHA FP 08/30/2019 03:27:00 P M EDT [facility] Outpatient Attender: Kailee GILLETTEP FP 08/24/2019 11:0 9:00 PM EDT [facility] Outpatient Attender: HENRIETTA GILLETTEP FP 08/24/2019 12:44:00 P M EDT [facility] Outpatient Attender: HENRIETTA GILLETTEP FP 08/22/2019 09:31:01 A M EDT [facility] Outpatient Attender: Kailee GILLETTEP FP 08/19/2019 04:4 8:00 PM EDT [facility] Outpatient Attender: HENRIETTA GILLETTEP FP 08/18/2019 02:56:00 P M EDT [facility] Outpatient Attender: HENRIETTA GILLETTEP FP 08/16/2019 01:34:03 P M EDT [facility] Outpatient Attender: HENRIETTA Roldan PRODUCTION SUPPORT DEVELOPER FP 08/16/2019 01:34:03 P M EDT [facility] Outpatient Attender: Kailee GILLETTEP FP 08/16/2019 01:3 4:02 PM EDT [facility] Outpatient Attender: HENRIETTA GILLETTEP FP 08/15/2019 11:26:00 A M EDT [facility] Outpatient Attender: Kailee GILLETTEP FP 08/13/2019 11:5 9:00 PM EDT [facility] Outpatient Attender: HENRIETTA GILLETTEP FP 08/11/2019 11:33:02 P M EDT [facility] Outpatient Attender: Kailee GILLETTEP FP 08/11/2019 11:3 3:01 PM EDT [facility] Outpatient Attender: Kailee GILLETTEP FP 08/11/2019 05:0 7:01 PM EDT [facility] Outpatient Attender: Kailee GILLETTEP FP 08/11/2019 03:2 7:01 PM EDT [facility] Outpatient Attender: HENRIETTA Roldan PRODUCTION SUPPORT DEVELOPER FP 08/09/2019 09:31:00 A M EDT [facility] Outpatient Attender: HENRIETTA GILLETTEP FP 08/09/2019 09:30:01 A M EDT [facility] Outpatient Attender: Kailee SHRESTHA FP 08/08/2019 12:5 2:59 AM EDT [facility] Outpatient Attender: HENRIETTA GILLETTEP FP 08/02/2019 04:19:59 P M EDT [facility] Outpatient Attender: HENRIETTA GILLETTEP FP 08/02/2019 02:36:01 P M EDT [facility] Outpatient Attender: Kailee Jamar SHRESTHA FP 07/13/2019 11:2 5:02 AM EDT [facility] Outpatient Attender: HENRIETTA Jamar HENRIETTA FP 06/29/2019 11:56:02 A M EDT [facility] Outpatient Attender: Kailee Roldan PRODUCTION SUPPORT DEVELOPER FP 06/27/2019 07:5 5:02 PM EDT [facility] Outpatient Attender: Kailee Roldan PRODUCTION SUPPORT DEVELOPER FP 06/26/2019 11:3 7:01 AM EDT [facility] Outpatient Attender: PRODUCTION SUPPORT DEVELOPER Jamar PRODUCTION SUPPORT DEVELOPER FP 06/21/2019 04:21:00 P M EDT [facility] Outpatient Attender: HENRIETTA SHRESTHA FP 06/16/2019 08:58:29 A [facility] Outpatient Attender: OLEGARIO RAMSAY 06/09/2019 12:00:00 AM [facility] Outpatient Attender: ALEXIA AGUILAR MD FP 05/29/2019 12:12:00 P [facility] Outpatient Attender: ALEXIA AGUILAR MD FP 05/17/2019 09:34:00 P [facility] Outpatient Attender: ALEXIA AGUILAR MD FP 05/13/2019 12:03:00 P [facility] Outpatient Attender: ALEXIA AGUILAR MD FP 05/12/2019 04:36:01 P [facility] Outpatient Attender: ALEXIA AGUILAR MD FP 05/12/2019 04:32:01 P [facility] Outpatient Attender: ALEXIA AGUILAR MD FP 05/12/2019 02:18:01 P [facility] Outpatient Attender: ALEXIA AGUILAR MD FP 05/12/2019 11:21:59 A [facility] Outpatient Attender: ALEXIA AGUILAR MD FP 05/12/2019 11:20:40 A [facility] Outpatient Attender: EMERALD HERNANDEZ [facility] [place][note 2] 04/14 02:30:00 PM EST [facility] Out[facility] Attender: ALEXIA AGUILAR MD FP 05/03/2019 01:15:01 P [facility] Outpatient Attender: ALEXIA AGUILAR MD FP 05/02/2019 10:03:01 A [facility] Outpatient Attender: ALEXIA AGUILAR MD 04/29/2019 08:10:01 A [facility] Outpatient Attender: ALEXIA AGUILAR MD 04/26/2019 11:22:02 A [facility] Outpatient Attender: ALEXIA AGUILAR MD 04/22/2019 10:28:01 A [facility] Outpatient Attender: ALEXIA AGUILAR MD 04/22/2019 10:21:01 A [facility] Outpatient Attender: ALEXIA AGUILAR MD 04/22/2019 10:20:01 A [facility] Outpatient Attender: ALEXIA AGUILAR MD 04/22/2019 09:10:01 A [facility] Outpatient Attender: ALEXIA AGUILAR MD 04/22/2019 09:09:01 A [facility] Outpatient Attender: ALEXIA AGUILAR MD 04/21/2019 10:12:01 A [facility] Outpatient Attender: ALEXIA AGUILAR MD 04/20/2019 04:30:00 P [facility] Outpatient Attender: ALEXIA AGUILAR MD 04/20/2019 10:58:01 A [facility] Outpatient Attender: ALEXIA AGUILAR MD 04/19/2019 10:43:00 A [facility] Outpatient Attender: ALEXIA AGUILAR MD 04/09/2019 09:04:01 A [facility] Outpatient Attender: EMERALD HERNANDEZ [facility] [place][note 2] 03/13 09:45:00 AM EST [facility] (James Vicente, [...] 1 tablet by mouth Two Times Daily [facility] Rosuvastatin calcium 5 MG Oral Tablet rosuvastatin (CR ESTOR) 5 MG tablet rosuvastatin (CRESTOR) 5 MG tablet 08/16/2018 12:00:00 AM EDT 5 mg Oral active Take 1 tablet by mouth daily [facility] Insurance Providers Payer name Policy type / Coverage type Policy ID Covered republican ID Covered republican's relationship to tyson Policy Tyson Plan Information DONALD [id number] SP [id number] Managed Care Donald P [id number] S [id number] Medicaid S [id number] S [id number] [place] [id number] S [id number] MEDICAID [id number] SP [id number] Managed Care [place] P [id number] S [id number] Managed Care Donald P [id number] S [id number] Medicaid S [id number] S [id number] DONALD I [id number] Self [id number] [place] Care [place] [id number] Self [id number] [place] [id number] Self [id number] [place] [id number] Self [id number] SELF PAY DONALD [id number] SP [id number] [place]ig[place] [id number] Self [id number] [place] [id number] Self [id number] [place] [id number] Self [id number] SELF PAY DONALD [id number] SP [id number] 300 [place] [id number] Self [id number] [place] [id number] Self [id number] Medicaid [place] Medigap Part B [id number] Self [id number] [place] Care [place] Commercial [id number] Self [id number] [place] [id number] Self [id number] SELF PAY DONALD [id number] SP [id number] [place] [id number] Self [id number] Medicaid [place] Medigap Part B [id number] Self [id number] [place] Care [place] Commercial [id number] Self [id number] MEDICAID GME [id number] S [id number] DONALD CARE HEA [id number] S [id number] [place] [id number] Self [id number] DONALD CARE HEA [id number] S [id number] Medicaid [facility] Part B [id number] Self [id number] [place] Care [place] Commercial [id number] Self [id number] Medicaid [facility] Part B [id number] Self [id number] [place] Care [place] Commercial [id number] Self [id number] [place] Commercial [id number] Self [id number] [place] Commercial [id number] Self [id number] [place] Commercial [id number] Self [id number] [place] Commercial [id number] Self [id number] [place] Commercial [id number] Self [id number] [place] Commercial [id number] Self [id number] [place] Commercial [id number] Self [id number] Medicaid [place] Medigap Part B [id number] Self [id number] [place] Care [place] Commercial [id number] Self [id number] [place] Care [place] Commercial [id number] Self [id number] Medicaid [place] Medigap Part B [id number] Self [id number] [place] Care [place] Commercial [id number] Self [id number] Medicaid [place] Medigap Part B [id number] Self [id number] [place] Care [place] Commercial [id number] Self [id number] [place] Commercial [id number] Self [id number] [place] [id number] Self [id number] [place] [id number] Self [id number] MEDICAID [id number] Ursula [id number] [place] [id number] Self [id number] [place] [id number] Self [id number] DONALD [id number] SP [id number] [place] [id number] Self [id number] [place] [id number] Self [id number] [place] Commercial [id number] Self [id number] [place] Commercial [id number] Self [id number] [place] Commercial [id number] Self [id number] [place] Commercial Self [facility] U [id number] Self [id number] [facility] MEDICAID [id number] Ursula [id number] MEDICAID [id number] Ursula [id number] Problems, Conditions, and Diagnoses Code Display Name Description Problem Type Effective Dates Data Source(s) 300.09 Anxiety depression Anxiety depression 0 12:27:35 PM EDT [facility] 729.5 Pain in right foot Pain in right foot 0 03:34:26 PM EDT [facility] R22.41 Localized swelling, mass and lump, right lower limb Localized swelling on foot, right 11/19/2019 03:34:26 PM EDT [facility] [id number] Hypothyroidism, unspecified Hypothyroidism, unspecifie d 08/31/2019 06:52:22 PM EDT [facility] 401.9 Essential hypertension Essential hypertension 08/16/2019 01:33:33 PM EDT [facility] N17.9 Acute kidney failure, unspecified Acute kidney failure , unspecified 08/16/2019 01:33:33 PM EDT [facility] V65.8 Person consulting for explanation of exa mination or test findings Person consulting for explanation of examination or test findings [id number] Atopic dermatitis, unspecified Atopic dermatitis, unsp ecified 08/02/2019 04:18:24 PM EDT [facility] V70.0 Encounter for general adult medical exam ination with abnormal findings Encounter for general adult medical examination with abnormal findings 08/02/2019 04:18:24 PM EDT [facility] F12.90 Cannabis use, unspecified, uncomplicated Cannabis use, unspecified, uncomplicated 08/02/2019 04:18:24 PM EDT [facility] 530.81 GERD GERD 06/29/2019 11:55:37 AM ED T [facility] 272.4 Hyperlipidemia Hyperlipidemia 06/29/2019 11:55: 37 AM EDT [facility] [id number] Tinea pedis Tinea pedis Problem 05/15/2019 12:00:00 AM EST [facility] ([facility] 288.60 Leukocytosis Leukocytosis 05/12/2019 04:30:04 P M [facility] 593.9 Renal insufficiency Renal insufficiency 020 04:30:04 PM [facility] [id number] Pain in limb Pain in limb Problem 03/28/2019 12:00:00 A M EST [facility] Type 2 diabetes mellitus with diabetic p olyneuropathy Type 2 diabetes mellitus with diabetic polyneuropathy Problem 03/28/2019 12:00:00 AM EST [facility] Corns and callosities Corns and callosities Problem 03/28/2019 12:00:00 AM EST [facility] [id number] Verruca plantaris Verruca plantaris Problem 03/28/2019 12:00:00 [...] [facility] Results ID Date Data Source [id number] 05/20/2020 10:53:00 PM EST [facility] Name Value Range Interpretation Code Description Data Cary rce(s) Supporting Document(s) SARS coronavirus 2 RNA [Presence] in Res piratory specimen by MELINDA with probe detection NEGATIVE [facility] This lab was ordered by [facility] a nd reported by [facility]. 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 Pt states have been taking medications as [...] during this visit, including review of any [id number] medications, herbal therapies, and/or supplements.Allergy ReviewAllergy List [...] GoodAssessment & Plan Problems:Added: Anxiety depression (ICD-300.09) (JGT09-I52.8) Assessment: Instructions: We have made a referral [...] maintain adequate intake of water daily.Hypothyroidism, unspecified (FUV57-F44.9) Assessment: Instructions: Thyroid levels within normal limits. Please continue your thyroid medication as prescribed. Please continue healthy diet and physical activities.Type 2 diabetes mellitus without complications (QJP94-C75.9) Assessment: Instructions: Your HGA1c is 7.3, Please continue medications as prescribed. Please continue healthy diet and physical activities. Please continue to limit sugars, carbohydrates, and fats in your diet.Hyperlipidemia (ICD-272.4) (TVQ33-Z06.5) Assessment: Instructions: We have increased the dose of your cholesteral medication today. May also take OTC Q10 tablet or fish oil tablet daily. Please continue healthy diet and physical activities.Localized swelling on foot, right (ICD-782.2) (ZUO97-O08.41) Assessment: Improved.Pain in right foot (ICD-729.5) (FND99-J09.671) Assessment: improved, per patient.Acute kidney failure, unspecified (XNC01-P29.9) Assessment: Instructions: Please continue to follow with your specialist as scheduled.Essential hypertension (ICD-401.9) (LQP00-Q20) Assessment: Instructions: Your Blood Pressure is at [...] ROSUVASTATIN CALCIUM 5 MG ORAL TABLET Qty: [id number] Refills: 30[Tablet] To: ROSUVASTATIN CALCIUM 10 MG ORAL TABLET- take one tablet by mouth twice daily Qty: 30[Tablet] Refills: 2Allergies:* ATORVASTATIN (Moderate)Orders:Mental Health Consult [CPT-36906] COMP METABOLIC PANEL [CPT-48556] CBC W/DIFF [CPT-14652] HgBA1c [CPT-03488] LIPID PANEL [CPT- 54403] TSH [CPT-19725] T-4 free [CPT-72245] Vitamin D 250H Unspecified [CPT- 45495] URINALYSIS [CPT-31451] URIC ACID BLOOD [CPT-89845] Adult - Ofc Vst, EST, Level IV [CPT-82117] Follow-Up Return to clinic: 3 months for follow up Clinical Visit Summary CompletedMedications:ROSUVASTATIN CALCIUM 10 MG ORAL TABLET (ROSUVASTATIN CALCIUM) take one tablet by mouth twice daily #30[Tablet] x 2 Route:ORAL Entered and Authorized by: Kailee SHRESTHA Electroni irene signed by: Kailee SHRESTHA on 12/15/2019 Method used: Electronically to [facility]* (retail) [address] [place] [address] Note to Pharmacy: Route: ORAL; RxID: [id number] signed by Kailee SHRESTHA on 12/20/2019 at 6:05 PM Name Value Range Interpretation Code Description Data Cary rce(s) Supporting Document(s) ID Date Data Source [id number] 11/15/2019 10:14:20 AM EDT [facility] Measurements & CalculationsHeight: 67 inches (5 [...] during this visit, including review of any gipp-tuf-yphjumk medications, herbal therapies, and/or supplements.Allergy ReviewAllergy List [...] as needed.Localized swelling of left lower leg (IGJ38-Z41.42) Assessment: Instructions: Please try to avoid added sodium in your diet. Please try to keep legs elevated. may be early onst cellulitis. ABX sent to pharmacy. Please use as prescribed. Please report any major side effects. If symptoms worsen, please return to clinic or the ER.Changed:From: Dx of Localized swelling of left lower leg (RXS51-Z72.42) To: Localized swelling on foot, right (ICD-782.2) (ICD10- R22.41)From: Dx of Pain in left foot (ICD-729.5) (MRW69-P69.672) To: Pain in right foot (ICD-729.5) (PYS70-O88.671)Assessed:Leukocytosis (ICD-288.60) (ICD10- D72.829) Assessment: Instructions: WBC 15.2. due to right foot swelling will send script for ABX. please try to maintain adequate intake of water daily.Leukocytosis (ICD-288.60) (TVI33-X26.829) Assessment: May be due to right foot swelling.Will recheck labs prior to next visit.Localized swelling on foot, right (ICD-782.2) (RGS78-G28.41) Assessment: Instructions: Please try to avoid added sodium in your diet. Please try to keep legs elevated. may be early onst cellulitis. ABX sent to pharmacy. Please use as prescribed. Please report any major side effects. If symptoms worsen, please return to clinic or the ER.Pain in right foot (ICD-729.5) (YRA76-F88.671) Assessment: will follow up for eval of left foot pain Instructions: May take tylenol as needed for foot pain. May continue warm soaks as needed.Essential hypertension (ICD-401.9) (EBU74-V10) Assessment: Instructions: Your Blood pressure is elevated today. Please continue medications as prescribed. Please continue healthy diet and physical activities. Please try to limit sodium in your diet. Please try to avoid processed foods.Person consulting for explanation of examination or test findings (ICD-V65.8) (DIV58-C13.2) Assessment: not all lab results available today due to situatiin with hospital computer system. will contact patient if concerning lab results. Instructions: available lab results reviewed with you today.Type 2 diabetes mellitus without complications (ZAO43-L71.9) Assessment: Instructions: Please continue medications as prescribed. [...] Method: ElectronicAllergies:* ATORVASTATIN (Moderate)Orders:COMP METABOLIC PANEL [CPT- 72801] CBC W/DIFF [CPT-84554] Adult - Ofc Vst, EST, Level IV [CPT-61460] Follow- Up Return to clinic: 1 month for follow up. Rate Your HealthIn general, would you say your health is? GoodMedications:ACETAMINOPHEN 500 MG ORAL TABLET (ACETAMINOPHEN) take one tablet by mouth twice daily as needed #30[Tablet] x 2 Route:ORAL Entered and Authorized by: Kailee SHRESTHA Method used: Electronically to [facility]* (retail) [address] [place] [address] Note to Pharmacy: Route: ORAL; Indications: LOCALIZED SWELLING OF LEFT LOWER LEG;PAIN IN LEFT FOOT RxID: [id number] HYCLATE 100 MG ORAL TABLET (DOXYCYCLINE HYCLATE) take one tablet by mouth twice daily x 7 days #14[Tablet] x 0 Route:ORAL Entered and Authorized by: Kailee SHRESTHA Method used: Electronically to [facility]* (retail) [address] [place] [address] Fax: Note to Pharmacy: Route: ORAL; Indications: LOCALIZED SWELLING OF LEFT LOWER LEG RxID: [id number] signed by Kailee SHRESTHA on 11/19/2019 at 3:34 PM Name Value Range Interpretation Code Description Data Cary rce(s) Supporting Document(s) ID Date Data Source [id number] 11/09/2019 12:00:00 AM EDT [facility] Name Value Range Interpretation Code Description Data Cary rce(s) Supporting Document(s) HGBA1C 7.3 % [facility] ID Date Data Source [id number] 11/08/2019 10:15:00 AM EDT [facility] Name Value Range Interpretation Code Description Data Cary rce(s) Supporting Document(s) APPEARANCE U CLEAR CLEAR N [facility] SPEC GR URIN 1.023 1.002-1.035 N [facility] UA COLOR YELLOW YELLOW N [facility] ID Date Data Source [id number] 11/08/2019 10:15:00 AM EDT [facility] Name Value Range Interpretation Code Description Data Cary rce(s) Supporting Document(s) HCT 42.4 % 42.0-52.0 N [facility] HGB 14.1 g/dL 13.5-17.5 N [facility] MCH 33.3 G/DL pg 32.0-36.5 N [facility] MCHC 29.1 PG % 27.0-33.0 N [facility] PLATELETS 336 10 10*3/mm3 150-450 N [facility] RBC 4.85 10 10*6/mm3 4.30-6.10 N [facility] RDW 14.1 % 11.5-14.5 N [facility] WBC TOTAL 15.1 4.0-10.0 H [facility] ID Date Data Source [id number] 11/08/2019 10:15:00 AM EDT [facility] Name Value Range Interpretation Code Description Data Cary rce(s) Supporting Document(s) BG FASTING 198 mg/dL 70-100 H [facility] T4, FREE 1.31 ng/dL 0.76-1.46 N [facility] TSH 0.590 microintl units/mL 0.358-3.740 N [facility] VIT D25 TOT 29.1 ng/mL 30.0-100.0 L [facility] ID Date Data Source [id number] 11/08/2019 10:15:00 AM EDT [facility] Name Value Range Interpretation Code Description Data Cary rce(s) Supporting Document(s) HGBA1C 7.3 % N [facility] ID Date Data Source [id number] 11/08/2019 06:55:08 AM EDT [facility] Labs In-House Blood TestsDate/Time Colle cted: 11/08/2019Test Result Reference Range Normal ValueComments: blood draw 11/08/2019Charmaine Nguyen, OctoberAssessment & Plan Orders:[id number] Vst-Est Level I [CPT- 86089] 22544 - Venipuncture [CPT-64159] Name Value Range Interpretation Code Description Data Cary rce(s) Supporting Document(s) ID Date Data Source [id number] 10/26/2019 03:54:12 PM EDT [facility] Measurements & CalculationsHeight: 67 inches (5 [...] during this visit, including review of any wlyn-krv-mkporah medications, herbal therapies, and/or supplements.Allergy ReviewAllergy List [...] follows with retna specialist Dr Burgess, in [place]. Ears/Nose/Throat: Denies earache, ear discharge, ringing in [...] is? GoodAssessment & Plan Problems:Assessed:Essential hypertension (ICD-401.9) (LEC10-O49) Assessment: Instructions: This is at goal. Please [...] (Moderate)Orders:Adult - Ofc Vst, EST, Level III [CPT-03548] Follow-Up Return to clinic: as scheduled and as needed Clinical Visit Summary Completed Name Value Range Interpretation Code Description Data Cary rce(s) Supporting Document(s) ID Date Data Source [id number] 09/15/2019 10:19:04 AM EDT [facility] Measurements & CalculationsHeight: 67 inches (5 [...] during this visit, including review of any bhyf-cie-gnaxxnq medications, herbal therapies, and/or supplements.Allergy ReviewAllergy List [...] explanation of examination or test findings (ICD-V65.8) (HSN30-K97.2) Assessment: Instructions: We have reviewed your lab results with you today. Please continue medications as prescribed. Please continue healthy diet and physical activities.Cannabis use, unspecified, uncomplicated (BYO97-S61.90) Assessment: Instructions: Marijuana use is still an illicit substance in the [facility]. This may also interact with prescribed medications. Please try to avoid use.Acute kidney failure, unspecified (SMA53-S37.9) Assessment: Patient states had US done yesterday. following with nephro. was restarted on Lisinopril. Instructions: Please keep your appointment with your Capacitor Tester. Please try to avoid use of Nsaids. Please try to maintain adequate intake of water daily.Type 2 diabetes mellitus without complications (GST80-K32.9) Assessment: Instructions: Ple ase continue medications as prescribed. Please continue healthy diet and physical activities. Please continue to limit sugars, carbohydrates, and fats in your diet.Essential hypertension (ICD-401.9) (BZF71-S92) Assessment: Instructions: Blood Pressure rechecked 131/89. This is at goal. Please continue medications as prescribed. Please continue healthy diet and physical activities. Please try to limit sodium in your diet. Please try to avoid processed foods.Hyperlipidemia (ICD-272.4) (WFH84-C79.5) Assessment: Instructions: Please continue medications as prescribed. [...] is still an illicit substance in the [facility]. This may also interact with prescribed medications. Please try to avoid use.Acute kidney failure- unspecified: Please keep your appointment with your Capacitor Tester. Please try to avoid use of Nsaids. [...] MG ORAL TABLETAllergies:* ATORVASTATIN (Moderate)Orders:COMP METABOLIC PANEL [CPT-63193] CBC W/DIFF [CPT- 89841] HgBA1c [CPT-73986] LIPID PANEL [CPT-26792] TSH [CPT-35531] T-4 free [CPT- 64295] Vitamin D 250H Unspecified [CPT-97683] URINALYSIS [CPT-13558] Adult - Ofc Vst, EST, Level IV [CPT-42811] Follow-Up Return to clinic: 2 months for follow up Clinical Visit Summary Completed __ Name Value Range Interpretation Code Description Data Cary rce(s) Supporting Document(s) ID Date Data Source [id number] 09/01/2019 08:08:43 AM EDT [facility] In-House Blood TestsDate/Time Colle cted: September 01, 2019 8:09 AMTest Result Reference Range Normal ValueComments: blood draw done in office done in the right ac tolerated well George Hopkins MA, September 01, 2019 8:09 AMAssessment & Plan Orders:[id number] Vst-Est Level I [CPT-72992] 83784 - Venipuncture [CPT-11940] Name Value Range Interpretation Code Description Data Cary rce(s) Supporting Document(s) ID Date Data Source [id number] 09/01/2019 08:03:00 AM EDT [facility] Name Value Range Interpretation Code Description Data Cary rce(s) Supporting Document(s) HCT 41.5 % 42.0-52.0 L [facility] HGB 14.2 g/dL 13.5-17.5 N [facility] MCH 34.2 G/DL pg 32.0-36.5 N [facility] MCHC 30.2 PG % 27.0-33.0 N [facility] PLATELETS 285 10 10*3/mm3 150-450 N [facility] RBC 4.70 10 10*6/mm3 4.30-6.10 N [facility] RDW 14.4 % 11.5-14.5 N [facility] WBC TOTAL 11.4 4.0-10.0 H [facility] ID Date Data Source [id number] 09/01/2019 08:03:00 AM EDT [facility] Name Value Range Interpretation Code Description Data Cary rce(s) Supporting Document(s) BG FASTING 404 mg/dL 70-100 Above upper panic limits [facility] ID Date Data Source [id number] 08/16/2019 10:58:31 AM EDT [facility] Measurements & CalculationsHeight: 67 inches (5 [...] during this visit, including review of any kwue-oye-eaafvwz medications, herbal therapies, and/or supplements.Allergy ReviewAllergy List [...] explanation of examination or test findings (ICD-V65.8) (GBM60-I42.2) Assessment: Instructions: We havre reviewed your lab results with you today. results indicates increased renal failure. We will make a referral to nephology for you today. We will contact you to set this up.Acute kidney failure, unspecified (JSD82-Q71.9) Assessment: Referral made to Nephro. Spoke with Nepho BRAKE TESTER Anamika. Instructions: Recent labs indicates acute renal failure. We have made a referral to Nephrology for you today. Please stop taking Metformin and Lisinopril. Please try to limit foods rich in potassium. Please try to avoid added sodium. Please try to avoid taking Nsaids such as Ibuprofen, Aleve, Motrin or AdvilPlease try to maintain adequate water intake daily.Essential hypertension (ICD-401.9) (DPJ46-B83) Assessment: Instructions: recent lab results indicates acute renal failure. Please stop taking lisinopril. We have increased your amlodipine to 5mg daily.Assessed:Hyperlipidemia (ICD-272.4) (LCK12-G21.5) Assessment: Instructions: Please continue medications as prescribed. Please continue healthy lifestyle changes to include limiting sugars, carbohydrates, fats and sodium in your diet.Type 2 diabetes mellitus without complications (GMJ66-A53.9) Assessment: Instructions: Your HGA1c is 7.6. Your Kidney Function is elevated. Please stop taking your Metformin at this time. May increase your Basaglar insulin to 60 units at nights. Please continue admelog per sliding scale. Please continue trulicity weekly. Please con tinue healthy diet and physical activities. Please continue to limit sugars carb ohydrates and added fats in your diet.Cannabis use, unspecified, uncomplicated (VXR30-H11.90) Assessment: Instructions: marijuana use is still an illicit substance in the [facility]. This may also interact with prescribed medications. [...] is still an illicit substance in the [facility]. This may also interact with prescribed medications. [...] AMLODIPINE BESYLATE 2.5 MG ORAL TABLET Qty: [id number] Refills: 30[Tablet] To: NORVASC 5 MG ORAL TABLET-Take one tablet by mouth daily Qty: 30[Tablet] Refills: 1Allergies:* ATORVASTATIN (Moderate)Orders:Nephrology Consult [CPT-01166] Adult - Ofc Vst, EST, Level IV [CPT-27127] Follow-Up Return to clinic: 1 month for follow up Medications:Cancelled METFORMIN HCL 500 MG ORAL TABLET (METFORMIN HCL) 1 tab by mouth twice per day #60[Tablet] x 2 Route:ORAL Entered and Authorized by: Kailee SHRESTHA Method used: Electronically to [facility]* (retail) [address] [place] [id number] RxID: [id number] LISINOPRIL 20 MG ORAL TABLET (LISINOPRIL) 1 tab by mouth every day #30[Tablet] x 5 Entered by: Kailee SHRESTHA Authorized by: Marguerite DUBON Method used: Electronically to [facility]* (retail) [address] [place], [place] [address] RxID: [id number] 5 MG ORAL TABLET (AMLODIPINE BESYLATE) Take one tablet by mouth daily #30[Tablet] x 1 Route:ORAL Entered and Authorized by: Kailee SHRESTHA Method used: Electronically to [facility]* (retail) [address] [place] [address] Note to Pharmacy: Route: ORAL; Indications: ESSENTIAL HYPERTENSION RxID: [id number] signed by Kailee SHRESTHA on 08/16/2019 at 1:33 PM Histor y of Present Illness (HPI)telephone visit 25 minutesAssessment & Plan Problems:Assessed:Person consulting for explanation of examination or test findings (ICD-V65.8) (ZLO62-K31.2) Assessment: Telephone visit 25 minutesOrders:Telephone E&M 21-30 min Medical Discussion [CPT-94843] Name Value Range Interpretation Code Description Data Cary rce(s) Supporting Document(s) ID Date Data Source [id number] 08/09/2019 09:44:35 AM EDT [facility] Labs In-House Urine TestsDate/Time Colle cted: August 09, 2019 9:44 AMTest Result Reference Range Normal ValueComments: urine collected in office.Charmaine Nguyen, August 09, 2019 9:44 AMBlood TestsDate/Time Collected: August 09, 2019 9:35 AMTest Result Reference Range Normal ValueComments: blood draw done in office, taken from left ac, tolerated well.Charmaine Murillomahesh, August 09, 2019 9:45 AMAssessment & Plan Orders:[id number] Vst-Est Level I [CPT-80220] 23668 - Venipuncture [CPT-10321] Name Value Range Interpretation Code Description Data Cary rce(s) Supporting Document(s) ID Date Data Source [id number] 08/09/2019 09:35:00 AM EDT [facility] Name Value Range Interpretation Code Description Data Cary rce(s) Supporting Document(s) VIT D25 TOT 15.9 ng/mL 30.0-100.0 L [facility] BG FASTING 212 mg/dL 70-100 H [facility] T4, FREE 1.47 ng/dL 0.76-1.46 H [facility] TSH 1.560 microintl units/mL 0.358-3.740 N [facility] ID Date Data Source [id number] 08/09/2019 09:35:00 AM EDT [facility] Name Value Range Interpretation Code Description Data Cary rce(s) Supporting Document(s) HCT 42.7 % 42.0-52.0 N [facility] HGB 14.3 g/dL 13.5-17.5 N [facility] MCH 33.5 G/DL pg 32.0-36.5 N [facility] MCHC 29.4 PG % 27.0-33.0 N [facility] PLATELETS 306 10 10*3/mm3 150-450 N [facility] RBC 4.87 10 10*6/mm3 4.30-6.10 N [facility] RDW 15.1 % 11.5-14.5 H [facility] WBC TOTAL 13.8 4.0-10.0 H [facility] ID Date Data Source [id number] 08/09/2019 09:35:00 AM EDT [facility] Name Value Range Interpretation Code Description Data Cary rce(s) Supporting Document(s) HGBA1C 7.6 % N [facility] ID Date Data Source [id number] 08/02/2019 02:36:20 PM EDT [facility] Measurements & CalculationsHeight: 67 inches (5 [...] or Preferred Language: EnglishFamily and Home Address: [address] [place] [address] What is your housing situation today? I [...] needed? Denies Insecurity: food, utilities, clothing, child health associate, phone, legal services, otherWithin the past year [...] 2 nights in a row in a halfway, mcfp, long term center or juvenile correctional facility? No Has [...] you a refugee? No (Country of origin: [facility]) Do you feel physically and emotionally [...] during this visit, including review of any nfqe-uzb-qarxgdb medications, herbal therapies, and/or supplements.Allergy ReviewAllergy List [...] GoodAssessment & Plan Problems:Added: Atopic dermatitis, unspecified (IHL81-S10.9) Assessment: Instructions: We have sent a prescription to your pharmacy to day. Please use medication as prescribed. Please report any major side effects.Encounter for general adult medical examination with abnormal findings (ICD-V70.0) (PLB94-L33.01) Assessment: Instructions: You have had your annual physical exam done today. Please continue medications as prescribed. Please continue lifestyle changes to include healthy diet and physical activities. Please try to maintain adequate fluid hydration. Please try to maintain adequate intake of Water daily.Cannabis use, unspecified, uncomplicated (SVL22-T54.90) Assessment: Instructions: marijuana use is still an illicit substance in the [facility]. This may also interact with prescribed medications. Please try to avoid use.As sessed:Type 2 diabetes mellitus without complications (CAV95-W34.9) Assessment: Pt states better blood sugar control [...] is still an illicit substance in the [facility]. This may also interact with prescribed medications. [...] ROSUVASTATIN CALCIUM 5 MG ORAL TABLET Qty: [id number] Refills: 30[Tablet] To: ROSUVASTATIN CALCIUM 5 MG ORAL TABLET-1 tab po dailyAllergies:* ATORVASTATIN (Moderate)Orders:COMP METABOLIC PANEL [CPT-04932] CBC W/DIFF [CPT-31030] HgBA1c [CPT-53362] LIPID PANEL [CPT- 57136] TSH [CPT-58864] T-4 free [CPT-42903] Vitamin D 250H Unspecified [CPT- 55733] URINALYSIS [CPT-51093] Microalbumin urine [Z5645K,A270918] URINE MICROALBUMIN - QUANTIATIVE [CPT-31140] Preventive, Est, (18-39) [CPT-27357] Follow-Up Return to clinic: 2-3 weeks for [...] rce(s) Supporting Document(s) ID Date Data Source [id number] 05/12/2019 03:54:03 PM [facility] Measurements & CalculationsHeight: 67 inches [...] Illness (HPI)Telemedicine visit with patient's location at [facility] and provider's location at offsite office. [...] during this visit, including review of any ndti-ewf-vkwvbbk medications, herbal therapies, and/or supplements.Allergy ReviewAllergy List [...] 2-3 weeks to recheck kidney function.Leukocytosis (ICD-288.60) (IMX60-X22.829) Assessment: Instructions: I believe your leukocytosis to be from your chronic foot ulcer or your dental issues. We will continue to monitor it.Leukocytosis (ICD-288.60) (DZL80-B61.829) Assessment: LIkely from chronic diabetic ulcer or dental issues, needs recheck in 3 months.Renal insufficiency (ICD-593.9) (ICD10- N28.9) Assessment: According to old records has dx of CKD3 and has seen a underwriter mortgage loan in the past. Advised to try to get his BG and BP under control and recheck in 4 weeks. If not improved, pt should be referred to renal.Assessed:Type 2 diabetes mellitus without complications (UCI77-K29.9) Assessment: Instructions: Your prescriptions have been sent to your preferred pharmacy electronically, please take them as prescribed and report any significant side effects. Please increase Trulicity to 1.5mg weekly.Keep track of your blood sugars and bring your log or meter with you to your next visit.Type 2 diabetes mellitus without complications (ANK63-P31.9) Assessment: A1c not at goal. Increase Trulicity [...] ORAL TABLETMedication Changes:Refilled:TRULICITY 1.5 MG/0.5ML SUBCUTANEOUS SOLUTION ZGB-LCSHVKBM-ltebpa 1.5 mg SQ weekly Qty: 4[Prefilled Pen [...] 5 Method: ElectronicRemoved:TRULICITY 0.75 MG/0.5ML SUBCUTANEOUS SOLUTION JSI-HCERZYDJ-5.75 mg SQ weekly- if tolerated, contact MD regarding inc to 1.5 after 1 month Qty: 4[Prefilled Pen Syrnge] Refills: 5Changed: To: LISINOPRIL 20 MG ORAL TABLET-1 tab by mouth every day Qty: 30[Tablet] Refills: 5 To: SERTRALINE HCL 100 MG ORAL TABLET-1 tab by mouth every day Qty: 30[Tablet] Refills: 5Allergies:* ATORVASTATIN (Moderate)Orders:Office Visit - Established, Level 3 [CPT-86440BQ] Follow-Up Return to clinic: 4 weeks for follow up of diabetes and labs Clinical Visit Summary CompletedMedications:SERTRALINE HCL 100 MG ORAL TABLET (SERTRALINE HCL) 1 tab by mouth every day #30[Tablet] x 5 Entered and Authorized by: Marguerite DUBON Method used: Electronically to [facility]* (retail) [address] [place] [address] Note to Pharmacy: Route: ORAL; RxID: [id number] 20 MG ORAL TABLET (LISINOPRIL) 1 tab by mouth every day #30[Tablet] x 5 Entered and Authorized by: Marguerite DUBON Method used: Electronically to [facility]* (retail) [address] [place] [address] Note to Pharmacy: Route: ORAL; RxID: [id number] 300 MG ORAL CAPSULE (GABAPENTIN) po TID #90[Capsule] x 5 Route:ORAL Entered and Authorized by: Marguerite DUBON Method used: [facility] (retail) [address] [place] [address] Note to Pharmacy: Route: ORAL; RxID: [id number] 81 MG ORAL TABLET DELAYED RELEASE (ASPIRIN) 1 po daily #90[Tablet] x 3 Route:ORAL Entered and Authorized by: Marguerite DUBON Method used: Electronically to [facility]* (retail) [address] [place] [address] Note to Pharmacy: Route: ORAL; RxID: [id number] 50 MG ORAL TABLET (SERTRALINE HCL) 1 tab by mouth every day #30[Tablet] x 5 Route:ORAL Entered and Authorized by: Marguerite DUBON Method used: Electronically to [facility]* (retail) [address] [place] [address] Note to Pharmacy: Route: ORAL; RxID: [id number] 1.5 MG/0.5ML SUBCUTANEOUS SOLUTION PEN-INJECTOR (DULAGLUTIDE) inject 1.5 mg SQ weekly #4[Prefilled Pen Syrnge] x 5 Route:SUBCUTANEOUS Entered and Authorized by: Marguerite DUBON Method used: Electronically to [facility]* (retail) [address] [place] [address] Note to Pharmacy: Route: SC; RxID: [id number] TRULICITY 0.75 MG/0.5ML SUBCUTANEOUS SOLUTION PEN- INJECTOR (DULAGLUTIDE) 0.75 mg SQ weekly- if tolerated, contact regarding inc to 1.5 after 1 month #4[Prefilled Pen Syrnge] x 5 Route:SUBCUTANEOUS Entered by: Marguerite DUBON Authorized by: Alexia Aguilar MD Method used: Electronically to [facility]* (retail) [address] [place] [address] Fax: RxID: [id number] signed by Marguerite DUBON on 05/13/2019 at 12:02 PM Name Value Range Interpretation Code Description Data Cary rce(s) Supporting Document(s) ID Date Data Source [id number] 04/22/2019 11:07:39 AM EST [facility] In-House Blood TestsDate/Time Colle cted: April 22, 2019 11:08 AMTest Result Reference Range Normal ValueComments: blood draw done in offcie done in the left ac tolerated well George Hopkins MA, April 22, 2019 11:08 AMAssessment & Plan Orders:54992-Mkt Vst-Est Level I [CPT-70908] 92138 - Venipuncture [CPT-07734] Name Value Range Interpretation Code Description Data Cary rce(s) Supporting Document(s) ID Date Data Source [id number] 04/22/2019 09:20:00 AM EST [facility] Name Value Range Interpretation Code Description Data Cary rce(s) Supporting Document(s) HCT 40.6 % 42.0-52.0 L [facility] HGB 13.6 g/dL 13.5-17.5 N [facility] MCH 33.5 G/DL pg 32.0-36.5 N [facility] MCHC 28.4 PG % 27.0-33.0 [facility] PLATELETS 343 10 10*3/mm3 150-450 N [facility] RBC 4.79 10 10*6/mm3 4.30-6.10 N [facility] RDW 14.3 % 11.5-14.5 [facility] WBC TOTAL 13.5 4.0-10.0 H [facility] ID Date Data Source [id number] 04/22/2019 09:20:00 AM EST [facility] Name Value Range Interpretation Code Description Data Cary rce(s) Supporting Document(s) HGBA1C 7.9 % N [facility] ID Date Data Source [id number] 04/22/2019 09:20:00 AM EST [facility] Name Value Range Interpretation Code Description Data Cary rce(s) Supporting Document(s) VIT D25 TOT 19.9 ng/mL 30.0-100.0 L [facility] BG FASTING 223 mg/dL 70-100 H [facility] T4, FREE 1.17 ng/dL 0.76-1.46 N [facility] TSH 2.300 microintl units/mL 0.358-3.740 N [facility] Procedure Vital Signs ID Date [...] 5 MG Oral Tablet 08/16/2018 12:00:00 AM [facility]
[2020-05-23 17:10] LABS: BASO # 0.1 10^3/uL (0.0-0.2); BASO % 0.5 % (0.0-1.0); EOS # 0.7 10^3/uL (0.0-0.5); EOS % 3.9 % (0.0-3.0); HEMATOCRIT 40.1 % (42.0-52.0); LYMPH % 5.9 % (24.0-44.0); MEAN CORPUSCULAR HEMOGLOBIN 29.8 pg (27.0-33.0); MEAN CORPUSCULAR HGB CONC 34.9 g/dl (32.0-36.5); MEAN CORPUSCULAR VOLUME 85.3 fl (80.0-96.0); MONO % 5.6 % (0.0-5.0); NEUTROPHILS # 14.7 10^3/uL (1.5-8.5); NEUTROPHILS % 83.2 % (36.0-66.0); PLATELET COUNT, AUTOMATED 312 10^3/uL (150-450)
[2020-05-23 17:11] LABS: WHITE BLOOD COUNT 17.6 10^3/uL (4.0-10.0)
[2020-05-23 17:26] LABS: ALBUMIN 3.8 GM/DL (3.2-5.2); BILIRUBIN,DIRECT 0.1 MG/DL (0.0-0.2); BILIRUBIN,TOTAL 0.5 MG/DL (0.2-1.0); CALCIUM LEVEL 9.7 MG/DL (8.5-10.1); CREATININE FOR GFR 1.66 MG/DL (0.70-1.30); POTASSIUM SERUM 4.4 MEQ/L (3.5-5.1); TOTAL PROTEIN 7.5 GM/DL (6.4-8.2)
--- NOTE | 2020-05-23 18:13 | REPVR ---
PROCEDURE INFORMATION: Exam: CT Abdomen And Pelvis Without Contrast Exam date and time: 05/23/2020 5:34 PM Age: 35 years old Clinical indication: Abdominal pain; Generalized; Additional info: Abdominal pain/arf TECHNIQUE: Imaging protocol: Computed tomography of the abdomen and pelvis without contrast. Radiation optimization: All CT scans at this facility use at least one of these dose optimization techniques: automated exposure control; mA and/or kV adjustment per patient size (includes targeted exams where dose is matched to clinical indication); or iterative reconstruction. COMPARISON: CT ABD PELVIS W/O CONTRAST 05/21/2020 12:42 AM FINDINGS: Liver: The liver is normal. Gallbladder and bile ducts: The gallbladder is normal.No calcified calculi. Normal bile ducts. Pancreas: The pancreas is normal. Spleen: The spleen is normal. Adrenal glands: The adrenals are normal. Kidneys and ureters: The kidneys are normal.No hydronephrosis. Stomach and bowel: Unremarkable. No obstruction. No mucosal thickening. Appendix: The appendix is well visualized and is normal. Intraperitoneal space: There is no free fluid or fluid collection. There is no free air. Vasculature: Unremarkable. No abdominal aortic aneurysm. Lymph nodes: There are small nonspecific abdominal and retroperitoneal lymph nodes. No grossly enlarged lymph nodes. No change from prior scan. Urinary bladder: The bladder is normal with no evidence of calculi. Reproductive: Unremarkable as visualized. Bones/joints: Unremarkable. No acute fracture. Soft tissues: Unremarkable. IMPRESSION: No acute findings and no change from prior scan. Electronically signed by: Milton Mina On 05/23/2020 18:13:15 PM
[2020-05-23] MEDS ORDERED: ZOLO100T PO (18:34)
[2020-05-23] MEDS ORDERED: PERC5TAB12 PO (18:43)
[2020-05-23] MEDS ORDERED: ONDA4TAB6 PO (18:43)
[2020-05-23 19:00] VITALS: BP 140/80
== END 2020-05-23 19:20 | disposition home or self-care (01) ==
LOC: M ED 14:55
DX: K52.9 Noninfective gastroenteritis and colitis, unspecified (principal); K20.90 Esophagitis, unspecified without bleeding; E11.9 Type 2 diabetes mellitus without complications; I10 Essential (primary) hypertension; E78.5 Hyperlipidemia, unspecified; N18.9 Chronic kidney disease, unspecified; E03.9 Hypothyroidism, unspecified; F12.10 Cannabis abuse, uncomplicated; Z79.82 Long term (current) use of aspirin; Z79.4 Long term (current) use of insulin; Z79.899 Other long term (current) drug therapy; Z88.8 Allergy status to other drugs, medicaments and biological substances
CPT/HCPCS: 74176; 80048; 80076; 82150; 83605; 83690; 85025; 93041; 96361; 96374; 96375; 99284; J2270; J2405

== ENCOUNTER 2020-07-16 23:22 | Emergency (ER) | payer MEDICARE, OTHER ==
[~2020-07-16] VITALS: Ht 180.3 cm; Wt 97.7 kg
[~2020-07-16 23:22] MED LIST changes: +ONDA4TAB6 PO; +PERC5TAB12 PO; +ZOLO100T PO
[2020-07-17 00:49] LABS: BASO # 0.1 10^3/uL (0.0-0.2); BASO % 0.6 % (0.0-1.0); EOS % 4.8 % (0.0-3.0); HEMATOCRIT 37.6 % (42.0-52.0); HEMOGLOBIN 12.6 g/dl (13.5-17.5); LYMPH # 1.2 10^3/uL (1.5-5.0); LYMPH % 5.6 % (24.0-44.0); MEAN CORPUSCULAR HEMOGLOBIN 30.1 pg (27.0-33.0); MEAN CORPUSCULAR HGB CONC 33.5 g/dl (32.0-36.5); MEAN CORPUSCULAR VOLUME 89.7 fl (80.0-96.0); MONO # 1.4 10^3/uL (0.0-0.8); MONO % 6.7 % (2.0-8.0); NEUTROPHILS # 16.7 10^3/uL (1.5-8.5); NEUTROPHILS % 81.7 % (36.0-66.0); PLATELET COUNT, AUTOMATED 256 10^3/uL (150-450); RED BLOOD COUNT 4.19 10^6/uL (4.30-6.10); WHITE BLOOD COUNT 20.4 10^3/uL (4.0-10.0)
[2020-07-17] MEDS ORDERED: OMEP-221 PO (01:00)
[2020-07-17] MEDS ORDERED: LISI20TA33 PO (01:00)
[2020-07-17] MEDS ORDERED: ROSU10TA6 PO (01:00)
[2020-07-17] MEDS ORDERED: FENO200C PO (01:00)
[2020-07-17 01:39] LABS: BLOOD UREA NITROGEN 32 MG/DL (7-18); CALCIUM LEVEL 9.5 MG/DL (8.5-10.1); CARBON DIOXIDE LEVEL 23 MEQ/L (21-32); CHLORIDE LEVEL 106 MEQ/L (98-107); CK-MB VALUE MASS < 1.0 NG/ML (<3.6); CPK CREATINE PHOSPHOKINASE 67 U/L (39-308); CREATININE FOR GFR 1.56 MG/DL (0.70-1.30); FREE T4 1.21 NG/DL (0.76-1.46); GLOMERULAR FILTRATION RATE 54.8 (>60); GLUCOSE, FASTING 116 MG/DL (70-100); MAGNESIUM LEVEL 1.9 MG/DL (1.8-2.4); MB/CK RELATIVE INDEX 1.49 (< OR =4); NT-PRO BNP 29 PG/ML (<125); SODIUM LEVEL 139 MEQ/L (136-145); TROPONIN I < 0.02 NG/ML (< 0.10)
[2020-07-17 03:12] VITALS: BP 118/52
--- NOTE | 2020-07-17 17:58 | ECGEPIP ---
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
== END 2020-07-17 03:13 | disposition home or self-care (01) ==
LOC: M ED 23:22
DX: E11.649 Type 2 diabetes mellitus with hypoglycemia without coma (principal); D72.829 Elevated white blood cell count, unspecified; R00.2 Palpitations; Z88.8 Allergy status to other drugs, medicaments and biological substances; Z79.899 Other long term (current) drug therapy; Z79.82 Long term (current) use of aspirin; Z79.4 Long term (current) use of insulin

== ENCOUNTER 2020-07-23 13:41 | Emergency (ER) | payer MEDICARE, OTHER ==
[~2020-07-23] VITALS: Ht 180.3 cm; Wt 93.5 kg
[~2020-07-23 13:41] MED LIST changes: +FENO200C PO; +OMEP-221 PO; +ROSU10TA6 PO
[2020-07-23] MEDS ORDERED: METOCLOPRAMIDE INJ 10MG/2ML VIAL (J2765 PER 1) IV ONE (13:50)
[2020-07-23] MEDS ORDERED: METOCLOPRAMIDE INJ 10MG/2ML VIAL (J2765 PER 1) As Ordered ONE (13:51)
[2020-07-23] MEDS ORDERED: KETOROLAC 30 MG/ML 1ML VIAL IV ONE (14:50)
[2020-07-23] MEDS ORDERED: PROMETHAZINE INJ 25 MG/ML VIAL (J2550) IV ONE (14:50)
[2020-07-23] MEDS ORDERED: ISOVUE-370 76% 100ML VIAL As Ordered ONE (15:38)
[2020-07-23 16:02] LABS: HEMOGLOBIN A1c 5.8 %
[2020-07-23 16:03] LABS: ACETONE/KETONE 24.58 MG/DL (<2.81); ALBUMIN 4.7 GM/DL (3.2-5.2); BILIRUBIN,DIRECT 0.2 MG/DL (0.0-0.2); BILIRUBIN,TOTAL 0.6 MG/DL (0.2-1.0); PHOSPHORUS LEVEL 3.2 MG/DL (2.5-4.9); TOTAL PROTEIN 8.3 GM/DL (6.4-8.2)
[2020-07-23 16:08] LABS: BASO # 0.1 10^3/uL (0.0-0.2); BASO % 0.3 % (0.0-1.0); EOS % 0.2 % (0.0-3.0); HEMATOCRIT 40.3 % (42.0-52.0); HEMOGLOBIN 13.7 g/dl (13.5-17.5); LYMPH # 0.6 10^3/uL (1.5-5.0); LYMPH % 2.5 % (24.0-44.0); MEAN CORPUSCULAR HEMOGLOBIN 29.4 pg (27.0-33.0); MEAN CORPUSCULAR VOLUME 86.5 fl (80.0-96.0); MONO # 0.7 10^3/uL (0.0-0.8); MONO % 2.8 % (2.0-8.0); NEUTROPHILS # 23.7 10^3/uL (1.5-8.5); NEUTROPHILS % 93.1 % (36.0-66.0); PLATELET COUNT, AUTOMATED 307 10^3/uL (150-450); RED BLOOD COUNT 4.66 10^6/uL (4.30-6.10); WHITE BLOOD COUNT 25.4 10^3/uL (4.0-10.0)
--- NOTE | 2020-07-23 16:24 | REP ---
INDICATION: abd pain/vomiting. COMPARISON: 05/23/2020 TECHNIQUE: 100 cc Isovue 370 intravenously FINDINGS: The lung bases are clear The liver, gallbladder, spleen, pancreas, adrenal glands, and kidneys are within normal limits. The abdominal aorta and para-aortic regions are within normal limits. The bowel loops and the mesenteries are within normal limits. There is no mass or adenopathy. There is no free fluid or free air. The osseous structures are stable and intact. IMPRESSION: CT findings are within normal limits. <Electronically signed by Kamlesh Shook > 07/23/20 [id number]
[2020-07-23] MEDS ORDERED: NS 1,000 ML IV ONE (16:55)
[2020-07-23 19:17] LABS: AMPHETAMINES LEVEL URINE NEGATIVE (NEGATIVE); BARBITURATES URINE NEGATIVE (NEGATIVE); BENZODIAZEPINES URINE NEGATIVE (NEGATIVE); CANNABINOIDS URINE POSITIVE (NEGATIVE); COCAINE METABOLITE URINE NEGATIVE (NEGATIVE); METHADONE URINE NEGATIVE (NEGATIVE); OPIATES URINE NEGATIVE (NEGATIVE); PHENCYCLIDINE URINE NEGATIVE (NEGATIVE)
[2020-07-23] MEDS ORDERED: DICYCLOMINE 10 MG CAP PO ONE (19:40)
[2020-07-23] MEDS ORDERED: DICY10CA13 PO (19:43)
[2020-07-23] MEDS ORDERED: PROM12.54 PR (19:43)
[2020-07-23] MEDS ORDERED: CIPR-249 PO (19:43)
[2020-07-23] MEDS ORDERED: CIPROFLOXACIN 500MG TABLET PO ONE (20:00)
[2020-07-23 20:12] VITALS: BP 176/95
== END 2020-07-23 20:17 | disposition home or self-care (01) ==
LOC: M ED 13:41
DX: R11.2 Nausea with vomiting, unspecified (principal); A04.0 Enteropathogenic Escherichia coli infection; D72.829 Elevated white blood cell count, unspecified; E11.319 Type 2 diabetes mellitus with unspecified diabetic retinopathy without macular edema; I10 Essential (primary) hypertension; E78.5 Hyperlipidemia, unspecified; N18.9 Chronic kidney disease, unspecified; F32.9 Major depressive disorder, single episode, unspecified; F12.10 Cannabis abuse, uncomplicated; Z79.4 Long term (current) use of insulin; Z79.82 Long term (current) use of aspirin; Z79.899 Other long term (current) drug therapy; Z88.8 Allergy status to other drugs, medicaments and biological substances
CPT/HCPCS: 74177; 80047; 80076; 80307; 81001; 82010; 83036; 83690; 83735; 83930; 84100; 85025; 87505; 96361; 96374; 96375; 99284; J1885; J2765; Q9967

== ENCOUNTER → 2020-08-30 | Outpatient (REF) | payer MEDICARE, OTHER, MEDICAID ==
[~2020-08-30] MED LIST changes: +DICY10CA13 PO; +GABA-283 PO; -GABA-845 PO; +PROM12.54 PR
[2020-08-30 12:38] LABS: BASO # 0.2 10^3/uL (0.0-0.2); BASO % 1.2 % (0.0-1.0); EOS # 1.5 10^3/uL (0.0-0.5); EOS % 11.9 % (0.0-3.0); HEMATOCRIT 40.7 % (42.0-52.0); HEMOGLOBIN 13.2 g/dl (13.5-17.5); LYMPH # 2.1 10^3/uL (1.5-5.0); LYMPH % 17.2 % (24.0-44.0); MEAN CORPUSCULAR HGB CONC 32.4 g/dl (32.0-36.5); MEAN CORPUSCULAR VOLUME 89.5 fl (80.0-96.0); MONO # 0.7 10^3/uL (0.0-0.8); MONO % 5.6 % (2.0-8.0); NEUTROPHILS # 7.8 10^3/uL (1.5-8.5); NEUTROPHILS % 63.4 % (36.0-66.0); PLATELET COUNT, AUTOMATED 295 10^3/uL (150-450); RED BLOOD COUNT 4.55 10^6/uL (4.30-6.10); WHITE BLOOD COUNT 12.2 10^3/uL (4.0-10.0)
[2020-08-30 13:20] LABS: ALBUMIN 4.1 GM/DL (3.2-5.2); ALT/SGPT 64 U/L (12-78); BILIRUBIN,TOTAL 0.3 MG/DL (0.2-1.0); BLOOD UREA NITROGEN 26 MG/DL (7-18); CALCIUM LEVEL 9.7 MG/DL (8.5-10.1); CARBON DIOXIDE LEVEL 27 MEQ/L (21-32); CHLORIDE LEVEL 105 MEQ/L (98-107); CHOLESTEROL LEVEL 174 MG/DL (<200); CHOLESTEROL RISK RATIO 7.565 (<5); CREATININE FOR GFR 1.92 MG/DL (0.70-1.30); GLOMERULAR FILTRATION RATE 43.2 (>60); GLUCOSE, FASTING 186 MG/DL (70-100); HDL CHOLESTEROL 23 MG/DL (>40); NON-HDL-C 151 MG/DL; POTASSIUM SERUM 4.7 MEQ/L (3.5-5.1); SODIUM LEVEL 140 MEQ/L (136-145); TOTAL PROTEIN 7.6 GM/DL (6.4-8.2); TRIGLYCERIDES LEVEL 509 MG/DL (<150)
[2020-08-30 14:23] LABS: TOTAL 25(OH) VITAMIN D 16.7 NG/ML (30.0-100.0)
[2020-08-30 14:24] LABS: HEMOGLOBIN A1c 6.5 %
== END ==
LOC: M LAB REF 11:25
PROVIDERS: ATTEND Nurse Practitioner Family
DX: E66.9 Obesity, unspecified (principal); E56.9 Vitamin deficiency, unspecified; E03.9 Hypothyroidism, unspecified

== ENCOUNTER → 2020-10-10 | Outpatient (CLI) | payer MEDICARE, OTHER ==
--- NOTE | 2020-10-10 12:44 | REP ---
INDICATION: ULCERATIVE COLITIS, UNSP WITH UNSPECIFIED COMPLICATIONS COMPARISON: None. TECHNIQUE: PA and lateral. FINDINGS: The mediastinum and cardiac silhouette are normal. The lung barnett are clear and without acute consolidation, effusion, or pneumothorax. The skeletal structures are intact and normal. IMPRESSION: No acute cardiopulmonary process. <Electronically signed by Manny Salmeron > 10/10/20 [id number]
== END ==
LOC: M RAD 12:18
PROVIDERS: ATTEND Internal Medicine Medical Oncology
DX: R91.1 Solitary pulmonary nodule (principal)

== ENCOUNTER → 2020-11-13 | Outpatient (REF) | payer MEDICARE, OTHER ==
[~2020-11-13] MED LIST changes: +AMOX875T2 PO; +AUGM875T28 PO; -FENO200C PO; +FENO200C19 PO; +FERR1TAB8 PO; +FERR325T3 PO; +HYDR-3911 PO; +HYDR50TA PO; +IBUP-1764 PO; +LABE100T4 PO; +LANTINJ4 SC; +METO5TAB2 PO; -OMEP-221 PO; +OMEP40CA5 PO
[2020-11-13 18:31] LABS: MALB URINE SIEMENS 19.5 MG/L; MAU/CREAT RATIO 11.5 MCG/MG (0.0-30.0)
== END ==
LOC: M LAB REF 16:44
PROVIDERS: ATTEND Nurse Practitioner Family
DX: N18.32 Chronic kidney disease, stage 3b (principal)

== ENCOUNTER → 2021-01-09 | Outpatient (CLI) | payer MEDICARE, OTHER ==
[~2021-01-09] MED LIST changes: -AMOX875T2 PO; -AUGM875T28 PO; +FENO200C PO; -FENO200C19 PO; -FERR1TAB8 PO; -HYDR-3911 PO; -HYDR50TA PO; -IBUP-1764 PO; -LABE100T4 PO; -LANTINJ4 SC; -METO5TAB2 PO; +OMEP-221 PO; -OMEP40CA5 PO
== END ==
LOC: M LABSMTC 11:31
PROVIDERS: ATTEND Anesthesiology
DX: Z01.818 Encounter for other preprocedural examination (principal); Z11.52 Encounter for screening for COVID-19

== ENCOUNTER 2021-01-14 06:38 | Day surgery (SDC) | payer MEDICARE, OTHER ==
[~2021-01-14] VITALS: Ht 182.9 cm; Wt 102.5 kg
[~2021-01-14 06:38] MED LIST changes: +NS 1,000 ML IV ONE
[2021-01-14] MEDS ORDERED: fentaNYL 100 MCG/2 ML INJECTION (J3010) As Ordered ONE (07:14)
[2021-01-14] MEDS ORDERED: propofoL 200 MG/20 ML VIAL As Ordered ONE (07:14)
[2021-01-14] MEDS ORDERED: LIDOCAINE 2% 100MG/5ML SDV (FOR ANES.) As Ordered ONE (07:14)
--- NOTE | 2021-01-14 07:52 | ROOR ---
Patient Name: Manny Levy Procedure Date: 01/14/2021 7:29 AM Date of : 1985 Age: 35 Room: [facility] Gender: Male Note Status: Finalized Procedure: Upper GI endoscopy Indications: Suspected gastroparesis Providers: Sudhir Ross MD Referring MD: Kailee Roldan NP Requesting Provider: Medicines: Monitored Anesthesia Care Complications: No immediate complications. Procedure: Pre-Anesthesia Assessment: - Prior to the procedure, a History and Physical was performed, and patient medications and allergies were reviewed. The patient is competent. The risks and benefits of the procedure and the sedation options and risks were discussed with the patient. All questions were answered and informed consent was obtained. Patient identification and proposed procedure were verified by the physician, the nurse and the anesthesiologist in the procedure room. Mental Status Examination: alert and oriented. Airway Examination: normal oropharyngeal airway and neck mobility. Respiratory Examination: clear to auscultation. CV Examination: normal. Prophylactic Antibiotics: The patient does not require prophylactic antibiotics. Prior Anticoagulants: The patient has taken no previous anticoagulant or antiplatelet agents. ASA Grade Assessment: II - A patient with mild systemic disease. After reviewing the risks and benefits, the patient was deemed in satisfactory condition to undergo the procedure. The anesthesia plan was to use monitored anesthesia care (MAC). Immediately prior to administration of medications, the patient was re-assessed for adequacy to receive sedatives. The heart rate, respiratory rate, oxygen saturations, blood pressure, adequacy of pulmonary ventilation, and response to care were monitored throughout the procedure. The physical status of the patient was re-assessed after the procedure. The Endoscope was introduced through the mouth, and advanced to the second part of duodenum. The upper GI endoscopy was accomplished without difficulty. The patient tolerated the procedure well. Findings: The examined esophagus was normal. The Z-line was irregular and was found 40 cm from the incisors. A large amount of food (residue) was found in the gastric fundus and in the gastric body. Scattered minimal inflammation characterized by erythema and granularity was found in the gastric antrum. Biopsies were taken with a cold forceps for Helicobacter pylori testing. Verification of patient identification for the specimen was done by the physician and nurse using the patient's name, date and medical record number. Estimated blood loss was minimal. The duodenal bulb, second portion of the duodenum and third portion of the duodenum were normal. Biopsies for histology were taken with a cold forceps for evaluation of celiac disease. Impression: - Normal esophagus. - Z-line irregular, 40 cm from the incisors. - A large amount of food (residue) in the stomach. - Gastritis. Biopsied. - Normal duodenal bulb, second portion of the duodenum and third portion of the duodenum. Biopsied. Recommendation: - Patient has a contact number available for emergencies. The signs and symptoms of potential delayed complications were discussed with the patient. Return to normal activities tomorrow. Written discharge instructions were provided to the patient. - Gastroparesis diet. - Continue present medications. - Await pathology results. - Return to GI clinic in [facility] (New address: [address] [place] [address], [address] [place] [address], [place], [place],[address]) in 4 -- 6 weeks. Please call GI clinic @ [phone] for apppointment date and time. - Return to primary care physician. Procedure Code(s): --- Professional --- 57066, Esophagogastroduodenoscopy, flexible, transoral; with biopsy, single or multiple Diagnosis Code(s): --- Professional --- K22.8, Other specified diseases of esophagus K29.70, Gastritis, unspecified, without bleeding CPT copyright 2019 [employer]. All rights reserved. The codes documented in this report are preliminary and upon music mixer review may be revised to meet current compliance requirements. Sudhir Ross MD Sudhir Ross MD 01/14/2021 7:52:50 AM Electronically signed by Sudhir Ross MD Number of Addenda: 0 Note Initiated On: 01/14/2021 7:29 AM Estimated Blood Loss: Estimated blood loss was minimal.
[2021-01-14 08:07] VITALS: BP 147/95
== END 2021-01-14 08:16 | disposition home or self-care (01) ==
LOC: M OPP 06:38
PROVIDERS: ATTEND Internal Medicine Gastroenterology
DX: K22.9 Disease of esophagus, unspecified (principal); K29.70 Gastritis, unspecified, without bleeding; Z80.0 Family history of malignant neoplasm of digestive organs; E11.9 Type 2 diabetes mellitus without complications; Z79.4 Long term (current) use of insulin; Z79.82 Long term (current) use of aspirin; Z79.899 Other long term (current) drug therapy; Z88.8 Allergy status to other drugs, medicaments and biological substances
CPT/HCPCS: 43239; 88305; J3010

== ENCOUNTER 2021-04-16 15:26 | Inpatient (IN) | payer MEDICARE, OTHER ==
[~2021-04-16] VITALS: Ht 182.9 cm; Wt 104.4 kg
[~2021-04-16 15:26] MED LIST changes: -NS 1,000 ML IV ONE
[2021-04-16] MEDS ORDERED: NS 1,000 ML IV ONE (21:10)
[2021-04-16] MEDS ORDERED: KETOROLAC 30 MG/ML 1ML VIAL IV ONE (21:10)
[2021-04-16] MEDS ORDERED: METOCLOPRAMIDE INJ 10MG/2ML VIAL (J2765 PER 1) IV ONE (21:10)
[2021-04-16 21:56] LABS: BASO % 0.1 % (0.0-1.0); HEMATOCRIT 40.1 % (42.0-52.0); HEMOGLOBIN 13.7 g/dl (13.5-17.5); LYMPH # 0.6 10^3/uL (1.5-5.0); LYMPH % 2.6 % (24.0-44.0); MEAN CORPUSCULAR HEMOGLOBIN 29.7 pg (27.0-33.0); MEAN CORPUSCULAR HGB CONC 34.2 g/dl (32.0-36.5); MONO # 1.1 10^3/uL (0.0-0.8); MONO % 4.7 % (2.0-8.0); NEUTROPHILS # 22.4 10^3/uL (1.5-8.5); PLATELET COUNT, AUTOMATED 283 10^3/uL (150-450); RED BLOOD COUNT 4.61 10^6/uL (4.30-6.10); WHITE BLOOD COUNT 24.3 10^3/uL (4.0-10.0)
[2021-04-16 22:37] LABS: HEMOGLOBIN A1c 8.2 %
[2021-04-16 22:56] LABS: RSV AMPLIFICATION NEGATIVE (NEGATIVE)
[2021-04-16] MEDS ORDERED: ISOVUE-370 76% 100ML VIAL As Ordered ONE (23:08)
[2021-04-16 23:47] LABS: ACETONE/KETONE 9.59 MG/DL (<2.81); ALBUMIN 4.4 GM/DL (3.2-5.2); BILIRUBIN,DIRECT 0.2 MG/DL (0.0-0.2); BILIRUBIN,TOTAL 0.4 MG/DL (0.2-1.0); CALCIUM LEVEL 9.2 MG/DL (8.5-10.1); CREATININE FOR GFR 3.37 MG/DL (0.70-1.30); GLOMERULAR FILTRATION RATE 22.4 (>60); MAGNESIUM LEVEL 1.7 MG/DL (1.8-2.4); POTASSIUM SERUM 5.1 MEQ/L (3.5-5.1); TOTAL PROTEIN 7.9 GM/DL (6.4-8.2)
[2021-04-17] MEDS ORDERED: ONDANSETRON 4MG/2ML VIAL IV ONE (00:35)
[2021-04-17] MEDS ORDERED: MORPHINE 4 MG/ML 1ML VIAL/SYRINGE (J2270) IV ONE (00:35)
[2021-04-17] MEDS ORDERED: NS 1,000 ML IV ONE ×2 (00:35→07:20)
[2021-04-17 01:08] LABS: VENOUS BASE EXCESS -5.3 (-2.0-2.0); VENOUS HCO3 20.4 MEQ/L (23.0-27.0); VENOUS O2 SATURATION 74.6 % (60.0-80.0); VENOUS PARTIAL PRESSURE CO2 40.2 mmHg (38.0-50.0); VENOUS PARTIAL PRESSURE O2 40.5 mmHg (30.0-50.0); VENOUS PH 7.323 UNITS (7.330-7.430); VENOUS STANDARD HCO3 19.7 MEQ/L; VENOUS TOTAL CO2 21.6 MEQ/L (24.0-28.0)
[2021-04-17] MEDS ORDERED: HumuLIN R (REGULAR) INSULIN (NovoLIN R) **100U/ML** PER UNIT SC STA (02:37)
[2021-04-17] MEDS ORDERED: GLUCAGON INJ 1MG VIAL SC PRN (02:40)
[2021-04-17] MEDS ORDERED: GLUCOSE 4GM CHEW TABLET PO PRN (02:40)
[2021-04-17] MEDS ORDERED: MOM 30ML SUSPENSION UDC PO PRN (02:40)
[2021-04-17] MEDS ORDERED: MAALOX 30 ML SUSP *UDC PO PRN (02:40)
[2021-04-17] MEDS ORDERED: DEXTROSE 50% 50 ML SYRINGE IV PRN ×2 (02:40→10:10)
[2021-04-17] MEDS ORDERED: ACETAMINOPHEN TAB 650MG DOSE (2X325MG) PO PRN (02:40)
[2021-04-17] MEDS ORDERED: NS 1,000 ML IV SCH (02:45)
[2021-04-17] MEDS: MAG SULF 1GM/100ML (MAG RUN) 1 GM in IV 1 EA IV SCH ×2 (03:00→04:00)
[2021-04-17] MEDS ORDERED: IBUP-1764 PO (03:58)
[2021-04-17] MEDS ORDERED: LISI20TA33 PO (03:58)
[2021-04-17] MEDS ORDERED: HOME MED LIST COMPLETE! XX SCH (04:00)
[2021-04-17 04:31] LABS: CALCIUM LEVEL 8.8 MG/DL (8.5-10.1); CREATININE FOR GFR 3.24 MG/DL (0.70-1.30); GLOMERULAR FILTRATION RATE 23.5 (>60); POTASSIUM SERUM 4.8 MEQ/L (3.5-5.1)
[2021-04-17] MEDS ORDERED: HumuLIN R (REGULAR) INSULIN (NovoLIN R) **100U/ML** PER UNIT SC ONE (05:10)
[2021-04-17] MEDS ORDERED: METOCLOPRAMIDE INJ 10MG/2ML VIAL (J2765 PER 1) IV PRN (05:15)
[2021-04-17] MEDS ORDERED: INSULIN IV RATE CHANGE DOCUMENTATION ML/HR XX SCH (05:30)
[2021-04-17] MEDS ORDERED: PIPERACILLIN/TAZOBACTAM SOD 4.5 GM in D5W MINI-BAG PLUS 50 ML IV SCH (06:00)
[2021-04-17] MEDS: LEVOTHYROXINE 25MCG TABLET (0.025MG) PO SCH (06:00)
[2021-04-17 06:19] LABS: CALCIUM LEVEL 8.8 MG/DL (8.5-10.1); CREATININE FOR GFR 2.91 MG/DL (0.70-1.30); GLOMERULAR FILTRATION RATE 26.5 (>60); MAGNESIUM LEVEL 2.7 MG/DL (1.8-2.4); PHOSPHORUS LEVEL 3.8 MG/DL (2.5-4.9); POTASSIUM SERUM 4.8 MEQ/L (3.5-5.1)
[2021-04-17] MEDS: INSULIN REGULAR IN 0.9 % NACL 100 UNIT in IV 1 EA IV SCH ×6 (06:35→09:03)
[2021-04-17] MEDS ORDERED: HYDROMORPHONE HCL 0.5 MG/ 0.5 ML SYRINGE (J1170 PER 1) IV ONE (07:30)
[2021-04-17] MEDS ORDERED: HumaLOG INSULIN (NovoLOG) PER UNIT SC SCH ×2 (07:30→21:00)
[2021-04-17] MEDS: METOCLOPRAMIDE INJ 10MG/2ML VIAL (J2765 PER 1) IV SCH ×3 (07:53→18:59)
[2021-04-17] MEDS ORDERED: LEVEMIR (INSULIN DETEMIR) 1 UNITS/0.01ML SC SCH ×2 (09:00→21:00)
[2021-04-17] MEDS: HumaLOG INSULIN (NovoLOG) PER UNIT SC SCH ×4 (09:00→20:36)
[2021-04-17] MEDS ORDERED: cloNIDine 0.1MG TABLET PO SCH (09:00)
[2021-04-17 09:45] LABS: CALCIUM LEVEL 9.2 MG/DL (8.5-10.1); CREATININE FOR GFR 2.79 MG/DL (0.70-1.30); GLOMERULAR FILTRATION RATE 27.9 (>60); POTASSIUM SERUM 4.5 MEQ/L (3.5-5.1)
[2021-04-17] MEDS: ASPIRIN 81MG ENTERIC TABLET PO SCH (10:18)
[2021-04-17] MEDS: OMEPRAZOLE 20 MG CAP PO SCH (10:18)
[2021-04-17] MEDS: PIPERACILLIN/TAZOBACTAM SOD 2.25 GM in D5W MINI-BAG PLUS 50 ML IV SCH ×2 (10:18→14:08)
[2021-04-17] MEDS: FERROUS SULFATE 325MG TAB PO SCH (10:19)
[2021-04-17] MEDS: allopurinoL 100 MG TAB PO SCH (10:19)
[2021-04-17] MEDS: SERTRALINE 100 MG TAB PO SCH (10:19)
[2021-04-17] MEDS: LACTOBACILLUS ACIDOPHILUS CAP (BACID) PO SCH ×2 (10:19→18:57)
[2021-04-17] MEDS: GABAPENTIN 300 MG CAP PO SCH ×3 (10:19→20:35)
[2021-04-17] MEDS: NS 1,000 ML IV SCH ×2 (10:25→20:36)
[2021-04-17] MEDS: SODIUM BICARBONATE 325 MG TAB PO SCH ×2 (11:57→20:35)
[2021-04-17] MEDS ORDERED: LABETALOL 100MG/20ML VIAL IV STA (12:56)
[2021-04-17 13:28] LABS: CALCIUM LEVEL 8.9 MG/DL (8.5-10.1); CREATININE FOR GFR 2.2 MG/DL (0.70-1.30); GLOMERULAR FILTRATION RATE 36.7 (>60); POTASSIUM SERUM 4.7 MEQ/L (3.5-5.1)
[2021-04-17 13:45] VITALS: BP 184/98
[2021-04-17] MEDS ORDERED: cloNIDine 0.1MG TABLET PO PRN (14:05)
[2021-04-17] MEDS: ISOSORBIDE DIN. (ISORDIL) 20 MG TAB PO SCH ×2 (14:08→19:01)
[2021-04-17] MEDS ORDERED: MORPHINE 30 MG TAB **MSIR PO ONE (14:15)
[2021-04-17] MEDS: **hydrALAZINE HCL** 25 MG TAB PO SCH ×2 (14:28→18:00)
[2021-04-17 16:29] VITALS: BP 148/78
[2021-04-17 17:36] LABS: CALCIUM LEVEL 8.9 MG/DL (8.5-10.1); CREATININE FOR GFR 1.99 MG/DL (0.70-1.30); GLOMERULAR FILTRATION RATE 41.2 (>60); POTASSIUM SERUM 4.4 MEQ/L (3.5-5.1)
[2021-04-17] MEDS ORDERED: MORPHINE 30 MG TAB **MSIR PO PRN (18:00)
[2021-04-17] MEDS ORDERED: **hydrALAZINE** 10 MG TAB PO SCH (18:00)
[2021-04-17] MEDS ORDERED: EPINEPHrine INJ 1 MG/ML 1ML AMP IM STA (18:05)
[2021-04-17] MEDS ORDERED: methylPREDNISolone 125MG 2ML VIAL IV STA (18:05)
[2021-04-17] MEDS ORDERED: LEVEMIR (INSULIN DETEMIR) 1 UNITS/0.01ML SC ONE (19:00)
[2021-04-17] MEDS: ROSUVASTATIN 10 MG TAB (CRESTOR) PO SCH (20:35)
[2021-04-17] MEDS: PIPERACILLIN/TAZOBACTAM SOD 3.375 GM in D5W MINI-BAG PLUS 50 ML IV SCH (20:35)
[2021-04-17 21:47] LABS: CALCIUM LEVEL 8.4 MG/DL (8.5-10.1); CREATININE FOR GFR 2.05 MG/DL (0.70-1.30); GLOMERULAR FILTRATION RATE 39.8 (>60); POTASSIUM SERUM 4.5 MEQ/L (3.5-5.1)
[2021-04-17 22:00] VITALS: BP 168/84
[2021-04-18] MEDS: METOCLOPRAMIDE INJ 10MG/2ML VIAL (J2765 PER 1) IV SCH ×5 (00:14→21:14)
[2021-04-18] MEDS: **hydrALAZINE HCL** 25 MG TAB PO SCH ×4 (00:56→21:15)
[2021-04-18] MEDS: ISOSORBIDE DIN. (ISORDIL) 20 MG TAB PO SCH ×2 (00:56→06:47)
[2021-04-18 01:25] LABS: CALCIUM LEVEL 8.4 MG/DL (8.5-10.1); CREATININE FOR GFR 1.86 MG/DL (0.70-1.30); GLOMERULAR FILTRATION RATE 44.5 (>60); POTASSIUM SERUM 4.2 MEQ/L (3.5-5.1)
[2021-04-18] MEDS: PIPERACILLIN/TAZOBACTAM SOD 3.375 GM in D5W MINI-BAG PLUS 50 ML IV SCH ×4 (02:27→21:14)
[2021-04-18] MEDS ORDERED: MORPHINE 2 MG/ML 1ML VIAL (J2270) IV PRN (05:40)
[2021-04-18] MEDS: ONDANSETRON 4MG/2ML VIAL IV PRN ×2 (05:55→15:20)
[2021-04-18 05:56] LABS: CALCIUM LEVEL 8.4 MG/DL (8.5-10.1); CREATININE FOR GFR 1.67 MG/DL (0.70-1.30); GLOMERULAR FILTRATION RATE 50.4 (>60); POTASSIUM SERUM 4.3 MEQ/L (3.5-5.1)
[2021-04-18 06:00] VITALS: BP 165/91
[2021-04-18] MEDS: LEVOTHYROXINE 25MCG TABLET (0.025MG) PO SCH (06:47)
[2021-04-18] MEDS ORDERED: LEVEMIR (INSULIN DETEMIR) 1 UNITS/0.01ML SC ONE (07:30)
[2021-04-18] MEDS ORDERED: INFLUENZA QUADRIVALENT PF VACCINE 0.5ML SYRINGE IM SCH (09:00)
[2021-04-18] MEDS: HumaLOG INSULIN (NovoLOG) PER UNIT SC SCH ×4 (09:35→21:00)
[2021-04-18] MEDS: NS 1,000 ML IV SCH ×3 (09:36→21:17)
[2021-04-18] MEDS: ASPIRIN 81MG ENTERIC TABLET PO SCH (09:36)
[2021-04-18] MEDS: SODIUM BICARBONATE 325 MG TAB PO SCH ×2 (09:36→21:14)
[2021-04-18] MEDS: LACTOBACILLUS ACIDOPHILUS CAP (BACID) PO SCH ×2 (09:36→17:43)
[2021-04-18] MEDS: allopurinoL 100 MG TAB PO SCH (09:36)
[2021-04-18] MEDS: OMEPRAZOLE 20 MG CAP PO SCH (09:37)
[2021-04-18] MEDS: SERTRALINE 100 MG TAB PO SCH (09:37)
[2021-04-18] MEDS: GABAPENTIN 300 MG CAP PO SCH ×3 (09:37→21:14)
[2021-04-18] MEDS ORDERED: atenoloL 25 MG TAB PO ONE (12:20)
[2021-04-18] MEDS: ISOSORBIDE DIN. (ISORDIL) 30 MG TAB PO SCH ×2 (12:34→17:51)
[2021-04-18 12:57] LABS: BASO # 0.1 10^3/uL (0.0-0.2); BASO % 0.4 % (0.0-1.0); EOS # 0.8 10^3/uL (0.0-0.5); EOS % 4.7 % (0.0-3.0); HEMATOCRIT 31.6 % (42.0-52.0); LYMPH # 0.9 10^3/uL (1.5-5.0); LYMPH % 5.8 % (24.0-44.0); MEAN CORPUSCULAR HEMOGLOBIN 30.6 pg (27.0-33.0); MEAN CORPUSCULAR HGB CONC 35.4 g/dl (32.0-36.5); MEAN CORPUSCULAR VOLUME 86.3 fl (80.0-96.0); MONO # 1.2 10^3/uL (0.0-0.8); MONO % 7.4 % (2.0-8.0); NEUTROPHILS # 13.2 10^3/uL (1.5-8.5); NEUTROPHILS % 81.1 % (36.0-66.0); PLATELET COUNT, AUTOMATED 227 10^3/uL (150-450); RED BLOOD COUNT 3.66 10^6/uL (4.30-6.10); WHITE BLOOD COUNT 16.2 10^3/uL (4.0-10.0)
[2021-04-18 13:00] LABS: HEMOGLOBIN 11.2 g/dl (13.5-17.5)
[2021-04-18 13:17] LABS: ERYTHROCYTE SEDIMENTATION RATE 49 mm/hr (0-15)
[2021-04-18 13:27] LABS: HEMOGLOBIN A1c 8.3 %
[2021-04-18 13:29] LABS: ALBUMIN 3.5 GM/DL (3.2-5.2); BILIRUBIN,TOTAL 0.6 MG/DL (0.2-1.0); C REACTIVE PROTEIN QUANTITATIV 4.16 MG/DL (0.00-0.30); CALCIUM LEVEL 8.8 MG/DL (8.5-10.1); CREATININE FOR GFR 1.57 MG/DL (0.70-1.30); GLOMERULAR FILTRATION RATE 54.1 (>60); POTASSIUM SERUM 4.4 MEQ/L (3.5-5.1); TOTAL PROTEIN 6.7 GM/DL (6.4-8.2)
[2021-04-18 14:00] VITALS: BP 159/89
[2021-04-18] MEDS ORDERED: PILL CUTTER 1 EACH XX PRN (15:10)
[2021-04-18] MEDS: ROSUVASTATIN 10 MG TAB (CRESTOR) PO SCH (21:14)
[2021-04-18 22:00] VITALS: BP 142/80
[2021-04-19] MEDS: ISOSORBIDE DIN. (ISORDIL) 30 MG TAB PO SCH ×4 (00:05→17:49)
[2021-04-19] MEDS: PIPERACILLIN/TAZOBACTAM SOD 3.375 GM in D5W MINI-BAG PLUS 50 ML IV SCH ×4 (02:16→20:34)
[2021-04-19 05:30] VITALS: BP 126/75
[2021-04-19] MEDS: **hydrALAZINE HCL** 25 MG TAB PO SCH ×3 (05:45→22:34)
[2021-04-19] MEDS: LEVOTHYROXINE 25MCG TABLET (0.025MG) PO SCH (05:54)
[2021-04-19 06:21] LABS: BASO # 0.1 10^3/uL (0.0-0.2); BASO % 0.4 % (0.0-1.0); EOS % 6.8 % (0.0-3.0); HEMATOCRIT 34.2 % (42.0-52.0); LYMPH # 1.3 10^3/uL (1.5-5.0); LYMPH % 8.4 % (24.0-44.0); MEAN CORPUSCULAR HEMOGLOBIN 30.8 pg (27.0-33.0); MEAN CORPUSCULAR HGB CONC 35.1 g/dl (32.0-36.5); MEAN CORPUSCULAR VOLUME 87.7 fl (80.0-96.0); MONO # 1.2 10^3/uL (0.0-0.8); NEUTROPHILS # 11.6 10^3/uL (1.5-8.5); NEUTROPHILS % 75.9 % (36.0-66.0); PLATELET COUNT, AUTOMATED 233 10^3/uL (150-450); WHITE BLOOD COUNT 15.2 10^3/uL (4.0-10.0)
[2021-04-19 06:36] LABS: CALCIUM LEVEL 8.9 MG/DL (8.5-10.1); CREATININE FOR GFR 1.47 MG/DL (0.70-1.30); GLOMERULAR FILTRATION RATE 58.4 (>60); POTASSIUM SERUM 4.3 MEQ/L (3.5-5.1)
[2021-04-19] MEDS: HumaLOG INSULIN (NovoLOG) PER UNIT SC SCH ×4 (08:04→20:21)
[2021-04-19] MEDS: METOCLOPRAMIDE INJ 10MG/2ML VIAL (J2765 PER 1) IV SCH ×4 (08:04→20:34)
[2021-04-19] MEDS: GABAPENTIN 300 MG CAP PO SCH ×3 (08:05→20:35)
[2021-04-19] MEDS: ASPIRIN 81MG ENTERIC TABLET PO SCH (08:06)
[2021-04-19] MEDS: OMEPRAZOLE 20 MG CAP PO SCH (08:06)
[2021-04-19] MEDS: LACTOBACILLUS ACIDOPHILUS CAP (BACID) PO SCH ×2 (08:06→17:50)
[2021-04-19] MEDS: SODIUM BICARBONATE 325 MG TAB PO SCH ×2 (08:07→20:35)
[2021-04-19] MEDS: allopurinoL 100 MG TAB PO SCH (08:07)
[2021-04-19] MEDS: SERTRALINE 100 MG TAB PO SCH (08:07)
[2021-04-19] MEDS: FERROUS SULFATE 325MG TAB PO SCH (08:07)
[2021-04-19] MEDS ORDERED: MOM 30ML SUSPENSION UDC PO PRN (08:15)
[2021-04-19] MEDS ORDERED: LEVEMIR (INSULIN DETEMIR) 1 UNITS/0.01ML SC ONE (08:15)
[2021-04-19] MEDS ORDERED: SENOKOT S TAB PO PRN (08:15)
[2021-04-19] MEDS ORDERED: BISACODYL 5 MG TAB PO PRN (08:15)
[2021-04-19] MEDS ORDERED: MORPHINE 30 MG TAB **MSIR PO ONE (08:45)
[2021-04-19] MEDS ORDERED: ACETAMINOPHEN 500 MG TAB PO ONE (09:15)
[2021-04-19] MEDS: LIDOCAINE 5% (LIDODERM) PATCH TD SCH (10:56)
[2021-04-19] MEDS: NS 1,000 ML IV SCH (13:47)
[2021-04-19 14:00] VITALS: BP 178/102
[2021-04-19] MEDS ORDERED: ISOSORBIDE DIN. (ISORDIL) 30 MG TAB PO ONE (14:30)
[2021-04-19] MEDS ORDERED: INFLUENZA QUADRIVALENT PF VACCINE 0.5ML SYRINGE IM PRN (17:55)
[2021-04-19 20:00] VITALS: BP 158/76
[2021-04-19] MEDS: ROSUVASTATIN 10 MG TAB (CRESTOR) PO SCH (20:35)
[2021-04-19] MEDS: **NOTE PATIENT COMMENT** MISC XX SCH (21:00)
[2021-04-20] MEDS: PIPERACILLIN/TAZOBACTAM SOD 3.375 GM in D5W MINI-BAG PLUS 50 ML IV SCH ×4 (01:24→20:43)
[2021-04-20] MEDS: ISOSORBIDE DIN. (ISORDIL) 30 MG TAB PO SCH ×2 (01:28→05:22)
[2021-04-20] MEDS: NS 1,000 ML IV SCH ×2 (01:28→08:10)
[2021-04-20] MEDS: LEVOTHYROXINE 25MCG TABLET (0.025MG) PO SCH (05:17)
[2021-04-20] MEDS: **hydrALAZINE HCL** 25 MG TAB PO SCH (05:22)
[2021-04-20 06:00] VITALS: BP 182/86
[2021-04-20 06:42] LABS: BASO # 0.1 10^3/uL (0.0-0.2); BASO % 0.5 % (0.0-1.0); EOS # 1.3 10^3/uL (0.0-0.5); EOS % 10.2 % (0.0-3.0); HEMATOCRIT 33.4 % (42.0-52.0); HEMOGLOBIN 11.6 g/dl (13.5-17.5); LYMPH # 1.5 10^3/uL (1.5-5.0); LYMPH % 11.7 % (24.0-44.0); MEAN CORPUSCULAR HEMOGLOBIN 30.2 pg (27.0-33.0); MEAN CORPUSCULAR HGB CONC 34.7 g/dl (32.0-36.5); MONO # 1.2 10^3/uL (0.0-0.8); MONO % 8.8 % (2.0-8.0); NEUTROPHILS # 8.9 10^3/uL (1.5-8.5); NEUTROPHILS % 68.2 % (36.0-66.0); PLATELET COUNT, AUTOMATED 237 10^3/uL (150-450); RED BLOOD COUNT 3.84 10^6/uL (4.30-6.10)
[2021-04-20 06:58] LABS: CREATININE FOR GFR 1.44 MG/DL (0.70-1.30); GLOMERULAR FILTRATION RATE 59.8 (>60); POTASSIUM SERUM 4.1 MEQ/L (3.5-5.1)
[2021-04-20] MEDS: HumaLOG INSULIN (NovoLOG) PER UNIT SC SCH ×4 (07:30→20:43)
[2021-04-20] MEDS: METOCLOPRAMIDE INJ 10MG/2ML VIAL (J2765 PER 1) IV SCH ×4 (08:10→20:42)
[2021-04-20] MEDS: ASPIRIN 81MG ENTERIC TABLET PO SCH (08:11)
[2021-04-20] MEDS: SODIUM BICARBONATE 325 MG TAB PO SCH ×2 (08:11→20:43)
[2021-04-20] MEDS: LACTOBACILLUS ACIDOPHILUS CAP (BACID) PO SCH ×2 (08:11→17:43)
[2021-04-20] MEDS: allopurinoL 100 MG TAB PO SCH (08:11)
[2021-04-20] MEDS: SERTRALINE 100 MG TAB PO SCH (08:11)
[2021-04-20] MEDS: LIDOCAINE 5% (LIDODERM) PATCH TD SCH ×3 (08:12→16:10)
[2021-04-20] MEDS: OMEPRAZOLE 20 MG CAP PO SCH (08:12)
[2021-04-20] MEDS: GABAPENTIN 300 MG CAP PO SCH ×3 (08:12→20:44)
[2021-04-20] MEDS ORDERED: **hydrALAZINE HCL** 25 MG TAB PO ONE (09:00)
[2021-04-20 10:00] VITALS: BP 186/88
[2021-04-20] MEDS ORDERED: ISOSORBIDE DIN. (ISORDIL) 30 MG TAB PO ONE (11:45)
[2021-04-20 14:00] VITALS: BP 196/92
[2021-04-20] MEDS ORDERED: atenoloL 50 MG TAB PO ONE (14:00)
[2021-04-20] MEDS ORDERED: LEVEMIR (INSULIN DETEMIR) 1 UNITS/0.01ML SC ONE ×2 (14:00→15:00)
[2021-04-20] MEDS ORDERED: cloNIDine 0.1MG TABLET PO PRN (14:50)
[2021-04-20] MEDS ORDERED: cloNIDine 0.1MG TABLET PO ONE (15:00)
[2021-04-20] MEDS ORDERED: HYDROMORPHONE HCL 0.5 MG/ 0.5 ML SYRINGE (J1170 PER 1) IV ONE (15:00)
[2021-04-20] MEDS ORDERED: ACETAMINOPHEN 500 MG TAB PO ONE (15:00)
[2021-04-20] MEDS ORDERED: **hydrALAZINE** 50 MG TAB PO SCH (16:00)
[2021-04-20] MEDS ORDERED: ISOSORBIDE MONONITRATE 10MG TABLET PO SCH (16:00)
[2021-04-20] MEDS: ONDANSETRON 4MG/2ML VIAL IV PRN (16:10)
[2021-04-20] MEDS ORDERED: LABETALOL 200 MG TAB PO SCH (17:00)
[2021-04-20 18:00] VITALS: BP 118/68
[2021-04-20] MEDS ORDERED: NITROGLYCERIN 2% OINT 1 GM *U/D* PKT TOP SCH (18:00)
[2021-04-20] MEDS ORDERED: NITROGLYCERIN 2% OINT 1 GM *U/D* PKT TOP PRN (18:05)
[2021-04-20] MEDS: ROSUVASTATIN 10 MG TAB (CRESTOR) PO SCH (20:44)
[2021-04-20] MEDS: **hydrALAZINE** 50 MG TAB PO SCH (20:45)
[2021-04-20] MEDS: **NOTE PATIENT COMMENT** MISC XX SCH (20:46)
[2021-04-21 02:00] VITALS: BP 148/80
[2021-04-21] MEDS: PIPERACILLIN/TAZOBACTAM SOD 3.375 GM in D5W MINI-BAG PLUS 50 ML IV SCH (02:19)
[2021-04-21] MEDS: LEVOTHYROXINE 25MCG TABLET (0.025MG) PO SCH (05:07)
[2021-04-21 06:00] VITALS: BP 158/70
[2021-04-21 06:27] LABS: BASO # 0.1 10^3/uL (0.0-0.2); BASO % 0.7 % (0.0-1.0); EOS # 1.4 10^3/uL (0.0-0.5); EOS % 11.2 % (0.0-3.0); HEMOGLOBIN 11.5 g/dl (13.5-17.5); LYMPH # 1.7 10^3/uL (1.5-5.0); LYMPH % 13.6 % (24.0-44.0); MEAN CORPUSCULAR HEMOGLOBIN 30.1 pg (27.0-33.0); MEAN CORPUSCULAR HGB CONC 34.8 g/dl (32.0-36.5); MEAN CORPUSCULAR VOLUME 86.4 fl (80.0-96.0); MONO # 0.9 10^3/uL (0.0-0.8); MONO % 7.3 % (2.0-8.0); NEUTROPHILS # 8.5 10^3/uL (1.5-8.5); NEUTROPHILS % 66.5 % (36.0-66.0); PLATELET COUNT, AUTOMATED 253 10^3/uL (150-450); RED BLOOD COUNT 3.82 10^6/uL (4.30-6.10); WHITE BLOOD COUNT 12.7 10^3/uL (4.0-10.0)
[2021-04-21 06:47] LABS: CALCIUM LEVEL 9.3 MG/DL (8.5-10.1); CREATININE FOR GFR 1.48 MG/DL (0.70-1.30); GLOMERULAR FILTRATION RATE 57.9 (>60); POTASSIUM SERUM 4.1 MEQ/L (3.5-5.1)
[2021-04-21] MEDS ORDERED: HYDR50TA PO (07:55)
[2021-04-21] MEDS ORDERED: LABE100T4 PO (07:55)
[2021-04-21] MEDS ORDERED: LANTINJ4 SC (07:57)
[2021-04-21] MEDS ORDERED: DEXTROSE 50% 50 ML SYRINGE IV PRN (08:00)
[2021-04-21] MEDS ORDERED: HumaLOG INSULIN (NovoLOG) PER UNIT SC SCH ×2 (08:00)
[2021-04-21] MEDS: METOCLOPRAMIDE INJ 10MG/2ML VIAL (J2765 PER 1) IV SCH (08:20)
[2021-04-21] MEDS: LACTOBACILLUS ACIDOPHILUS CAP (BACID) PO SCH (08:22)
[2021-04-21] MEDS: HumaLOG INSULIN (NovoLOG) PER UNIT SC SCH (08:22)
[2021-04-21] MEDS: SODIUM BICARBONATE 325 MG TAB PO SCH (08:22)
[2021-04-21] MEDS: GABAPENTIN 300 MG CAP PO SCH (08:22)
[2021-04-21] MEDS: LIDOCAINE 5% (LIDODERM) PATCH TD SCH (08:22)
[2021-04-21] MEDS: allopurinoL 100 MG TAB PO SCH (08:23)
[2021-04-21] MEDS: OMEPRAZOLE 20 MG CAP PO SCH (08:23)
[2021-04-21] MEDS: ASPIRIN 81MG ENTERIC TABLET PO SCH (08:23)
[2021-04-21] MEDS: SERTRALINE 100 MG TAB PO SCH (08:23)
[2021-04-21 08:27] VITALS: BP 136/58
[2021-04-21] MEDS: **hydrALAZINE** 50 MG TAB PO SCH (08:27)
[2021-04-21] MEDS ORDERED: LEVEMIR (INSULIN DETEMIR) 1 UNITS/0.01ML SC ONE (09:00)
[2021-04-21] MEDS ORDERED: LABETALOL 100MG TAB PO SCH (09:00)
[2021-04-21] MEDS ORDERED: AUGM875T28 PO (11:35)
== END 2021-04-21 10:00 | disposition home or self-care (01) | DRG 638 ==
LOC: M ED 15:26 → M ED INP 04-17 02:37 → ENRESERV 04-17 12:22 → M MSPAV 04-17 13:49
PROVIDERS: ADMIT Family Medicine; ATTEND General Practice
DX: E11.00 Type 2 diabetes mellitus with hyperosmolarity without nonketotic hyperglycemic-hyperosmolar coma (NKHHC) (principal); N17.9 Acute kidney failure, unspecified; E11.43 Type 2 diabetes mellitus with diabetic autonomic (poly)neuropathy; F32.A Depression, unspecified; K31.84 Gastroparesis; I12.9 Hypertensive chronic kidney disease with stage 1 through stage 4 chronic kidney disease, or unspecified chronic kidney disease; N18.30 Chronic kidney disease, stage 3 unspecified; I16.0 Hypertensive urgency; E11.65 Type 2 diabetes mellitus with hyperglycemia; E11.22 Type 2 diabetes mellitus with diabetic chronic kidney disease; E03.9 Hypothyroidism, unspecified; M10.9 Gout, unspecified; E78.5 Hyperlipidemia, unspecified; E66.9 Obesity, unspecified; H40.9 Unspecified glaucoma; Z20.822 Contact with and (suspected) exposure to COVID-19; Z79.82 Long term (current) use of aspirin; Z79.4 Long term (current) use of insulin; Z79.899 Other long term (current) drug therapy; Z88.8 Allergy status to other drugs, medicaments and biological substances; Z68.31 Body mass index [BMI] 31.0-31.9, adult

== ENCOUNTER → 2021-08-13 | Outpatient (CLI) | payer MEDICARE, OTHER ==
[~2021-08-13] MED LIST changes: +AMOX875T2 PO; +AUGM875T28 PO; -FENO134C PO; +FENO134C16 PO; -FENO200C PO; +FENO200C19 PO; +FERR1TAB8 PO; +HYDR-3911 PO; +HYDR50TA PO; +IBUP-1764 PO; +LABE100T4 PO; +LANTINJ4 SC; +METO5TAB2 PO; -OMEP-221 PO; +OMEP40CA5 PO
== END ==
LOC: M RAD 07:25
PROVIDERS: ATTEND Internal Medicine Gastroenterology
DX: R11.2 Nausea with vomiting, unspecified (principal)
CPT/HCPCS: 78264; A9541

== ENCOUNTER 2021-11-09 10:37 | Inpatient (IN) | payer MEDICARE, OTHER ==
[~2021-11-09] VITALS: Ht 180.3 cm; Wt 100.0 kg
[~2021-11-09 10:37] MED LIST changes: -LABE100T4 PO; +LABE100T6 PO
[2021-11-09] MEDS ORDERED: NS 1,000 ML IV ONE (11:30)
[2021-11-09] MEDS ORDERED: ONDANSETRON 4MG 2ML VIAL IV ONE (11:30)
[2021-11-09 11:48] LABS: BASO # 0.1 10^3/uL (0.0-0.2); BASO % 0.4 % (0.0-1.0); EOS # 0.1 10^3/uL (0.0-0.5); EOS % 0.3 % (0.0-3.0); HEMATOCRIT 43.3 % (42.0-52.0); HEMOGLOBIN 15.3 g/dl (13.5-17.5); LYMPH # 1.3 10^3/uL (1.5-5.0); LYMPH % 6.8 % (24.0-44.0); MEAN CORPUSCULAR HEMOGLOBIN 29.9 pg (27.0-33.0); MEAN CORPUSCULAR HGB CONC 35.3 g/dl (32.0-36.5); MEAN CORPUSCULAR VOLUME 84.6 fl (80.0-96.0); MONO % 7.9 % (2.0-8.0); NEUTROPHILS # 16.1 10^3/uL (1.5-8.5); NEUTROPHILS % 83.7 % (36.0-66.0); PLATELET COUNT, AUTOMATED 416 10^3/uL (150-450); RED BLOOD COUNT 5.12 10^6/uL (4.30-6.10); WHITE BLOOD COUNT 19.2 10^3/uL (4.0-10.0)
[2021-11-09 12:10] LABS: MONO # 1.5 10^3/uL (0.0-0.8)
[2021-11-09 12:16] LABS: ALBUMIN 4.2 GM/DL (3.2-5.2); BILIRUBIN,DIRECT 0.1 MG/DL (0.0-0.2); BILIRUBIN,TOTAL 0.7 MG/DL (0.2-1.0); CALCIUM LEVEL 9.9 MG/DL (8.5-10.1); CREATININE FOR GFR 1.79 MG/DL (0.70-1.30); GLOMERULAR FILTRATION RATE 46.5 (>60); POTASSIUM SERUM 5.8 MEQ/L (3.5-5.1); TOTAL PROTEIN 8.2 GM/DL (6.4-8.2)
[2021-11-09] MEDS ORDERED: MORPHINE 2 MG/ML 1ML VIAL IV ONE (13:30)
[2021-11-09] MEDS ORDERED: MORPHINE 2 MG/ML 1ML VIAL IV PRN (13:45)
[2021-11-09 14:37] LABS: CK-MB VALUE MASS < 1.0 NG/ML (<3.6); CPK CREATINE PHOSPHOKINASE 26 U/L (39-308); MB/CK RELATIVE INDEX 3.85 (< OR =4)
[2021-11-09] MEDS ORDERED: AMLO1TAB24 PO (14:43)
[2021-11-09] MEDS ORDERED: ERGO500029 PO (14:43)
[2021-11-09] MEDS ORDERED: LISI20TA33 PO (14:43)
[2021-11-09] MEDS ORDERED: GABA-282 PO (14:43)
[2021-11-09] MEDS ORDERED: TRAM50TA2 PO (14:43)
[2021-11-09] MEDS ORDERED: CLON-412 PO (14:43)
[2021-11-09] MEDS ORDERED: HOME MED LIST COMPLETE! XX SCH (15:00)
[2021-11-09 15:07] VITALS: BP 142/81
[2021-11-09] MEDS: NS 1,000 ML IV SCH ×2 (15:16→21:47)
[2021-11-09] MEDS: CIPROFLOXACIN 400 MG in IV 1 EA IV SCH (15:22)
[2021-11-09 15:31] LABS: RSV AMPLIFICATION NEGATIVE (NEGATIVE)
[2021-11-09] MEDS ORDERED: DEXTROSE 50% 50 ML SYRINGE IV PRN (15:45)
[2021-11-09] MEDS ORDERED: GLUCOSE 4GM CHEW TABLET PO PRN (15:45)
[2021-11-09] MEDS ORDERED: GLUCAGON INJ 1MG VIAL SC PRN (15:45)
[2021-11-09] MEDS: metroNIDAZOLE 500 MG in IV 1 EA IV SCH ×2 (16:52→23:06)
[2021-11-09] MEDS: LACTOBACILLUS ACIDOPHILUS CAP (BACID) PO SCH (16:53)
[2021-11-09] MEDS: METOCLOPRAMIDE 5 MG TAB PO SCH ×2 (16:53→20:15)
[2021-11-09] MEDS: **hydrALAZINE** 50 MG TAB PO SCH ×2 (16:53→20:16)
[2021-11-09] MEDS: GABAPENTIN 300 MG CAP PO SCH ×2 (16:53→20:13)
[2021-11-09] MEDS: INSULIN LISPRO (NovoLOG) PER UNIT SC SCH ×2 (16:53→20:26)
[2021-11-09] MEDS: MORPHINE 2 MG/ML 1ML VIAL IV PRN (18:03)
[2021-11-09 18:11] LABS: INR 1.12; PROTHROMBIN TIME 14.8 SECONDS (12.7-14.5)
[2021-11-09] MEDS: HEPARIN SOD (PORCINE) 5000UNITS/ML 1ML VIAL/SYRINGE SQ SCH (20:13)
[2021-11-09] MEDS: cloNIDine 0.1MG TABLET PO SCH (20:15)
[2021-11-09] MEDS: SIMETHICONE 80MG CHEW TAB PO PRN (20:15)
[2021-11-09] MEDS: ROSUVASTATIN 10 MG TAB (CRESTOR) PO SCH (20:15)
[2021-11-09] MEDS: DICYCLOMINE 10 MG CAP PO PRN (20:26)
[2021-11-09] MEDS: ONDANSETRON 4MG 2ML VIAL IV PRN (20:26)
[2021-11-09 20:32] VITALS: BP 142/98
[2021-11-09] MEDS ORDERED: LEVEMIR (INSULIN DETEMIR) 1 UNITS/0.01ML SC SCH (21:00)
[2021-11-10] MEDS: ONDANSETRON 4MG 2ML VIAL IV PRN ×2 (01:44→13:18)
[2021-11-10] MEDS: CIPROFLOXACIN 400 MG in IV 1 EA IV SCH ×2 (01:44→13:17)
[2021-11-10] MEDS: MORPHINE 2 MG/ML 1ML VIAL IV PRN ×2 (03:01→20:24)
[2021-11-10 06:00] VITALS: BP 121/67
[2021-11-10] MEDS: LEVOTHYROXINE 25MCG TABLET (0.025MG) PO SCH (06:07)
[2021-11-10] MEDS: SIMETHICONE 80MG CHEW TAB PO PRN ×3 (06:07→23:29)
[2021-11-10] MEDS: DICYCLOMINE 10 MG CAP PO PRN ×3 (06:07→23:29)
[2021-11-10 06:30] LABS: HEMATOCRIT 38.7 % (42.0-52.0); HEMOGLOBIN 13.5 g/dl (13.5-17.5); MEAN CORPUSCULAR HEMOGLOBIN 29.6 pg (27.0-33.0); MEAN CORPUSCULAR HGB CONC 34.9 g/dl (32.0-36.5); MEAN CORPUSCULAR VOLUME 84.9 fl (80.0-96.0); PLATELET COUNT, AUTOMATED 339 10^3/uL (150-450); RED BLOOD COUNT 4.56 10^6/uL (4.30-6.10)
[2021-11-10] MEDS: metroNIDAZOLE 500 MG in IV 1 EA IV SCH ×3 (06:45→23:29)
[2021-11-10 06:52] LABS: ALBUMIN 3.7 GM/DL (3.2-5.2); BILIRUBIN,TOTAL 0.6 MG/DL (0.2-1.0); CALCIUM LEVEL 9.3 MG/DL (8.5-10.1); CREATININE FOR GFR 1.98 MG/DL (0.70-1.30); GLOMERULAR FILTRATION RATE 41.4 (>60); POTASSIUM SERUM 4.7 MEQ/L (3.5-5.1); TOTAL PROTEIN 6.9 GM/DL (6.4-8.2)
[2021-11-10] MEDS: LACTOBACILLUS ACIDOPHILUS CAP (BACID) PO SCH ×2 (08:29→17:01)
[2021-11-10] MEDS: **hydrALAZINE** 50 MG TAB PO SCH ×3 (08:31→20:23)
[2021-11-10] MEDS: HEPARIN SOD (PORCINE) 5000UNITS/ML 1ML VIAL/SYRINGE SQ SCH ×2 (08:32→20:20)
[2021-11-10] MEDS: SERTRALINE 100 MG TAB PO SCH (08:32)
[2021-11-10] MEDS: LEVEMIR (INSULIN DETEMIR) 1 UNITS/0.01ML SC SCH ×2 (08:32→20:20)
[2021-11-10] MEDS: cloNIDine 0.1MG TABLET PO SCH ×2 (08:33→20:22)
[2021-11-10] MEDS: OMEPRAZOLE 20MG CAP PO SCH (08:33)
[2021-11-10] MEDS: GABAPENTIN 300 MG CAP PO SCH ×3 (08:33→20:23)
[2021-11-10] MEDS: INSULIN LISPRO (NovoLOG) PER UNIT SC SCH ×4 (08:33→20:24)
[2021-11-10] MEDS: NS 1,000 ML IV SCH ×2 (08:34→20:31)
[2021-11-10] MEDS: METOCLOPRAMIDE 5 MG TAB PO SCH ×4 (08:38→20:22)
[2021-11-10 14:00] VITALS: BP 125/73
[2021-11-10] MEDS: ROSUVASTATIN 10 MG TAB (CRESTOR) PO SCH (20:23)
[2021-11-10 20:36] VITALS: BP 127/80
[2021-11-11] MEDS: CIPROFLOXACIN 400 MG in IV 1 EA IV SCH ×2 (02:33→13:21)
[2021-11-11] MEDS: MORPHINE 2 MG/ML 1ML VIAL IV PRN (02:34)
[2021-11-11] MEDS: NS 1,000 ML IV SCH ×3 (05:45→22:24)
[2021-11-11] MEDS: LEVOTHYROXINE 25MCG TABLET (0.025MG) PO SCH (05:56)
[2021-11-11] MEDS: metroNIDAZOLE 500 MG in IV 1 EA IV SCH ×2 (05:56→14:36)
[2021-11-11 06:00] VITALS: BP 102/65
[2021-11-11 06:06] LABS: HEMATOCRIT 33.3 % (42.0-52.0); HEMOGLOBIN 11.8 g/dl (13.5-17.5); MEAN CORPUSCULAR HEMOGLOBIN 30.6 pg (27.0-33.0); MEAN CORPUSCULAR HGB CONC 35.4 g/dl (32.0-36.5); MEAN CORPUSCULAR VOLUME 86.3 fl (80.0-96.0); PLATELET COUNT, AUTOMATED 312 10^3/uL (150-450); RED BLOOD COUNT 3.86 10^6/uL (4.30-6.10)
[2021-11-11 06:30] LABS: ALBUMIN 3.2 GM/DL (3.2-5.2); BILIRUBIN,TOTAL 0.5 MG/DL (0.2-1.0); CALCIUM LEVEL 8.9 MG/DL (8.5-10.1); CREATININE FOR GFR 2.01 MG/DL (0.70-1.30); GLOMERULAR FILTRATION RATE 40.7 (>60); POTASSIUM SERUM 4.3 MEQ/L (3.5-5.1); TOTAL PROTEIN 5.9 GM/DL (6.4-8.2)
[2021-11-11] MEDS: DOCUSATE SODIUM 100MG CAPSULE PO SCH ×2 (09:00→20:32)
[2021-11-11] MEDS: METOCLOPRAMIDE 5 MG TAB PO SCH ×4 (09:28→20:34)
[2021-11-11] MEDS: cloNIDine 0.1MG TABLET PO SCH ×2 (09:28→20:32)
[2021-11-11] MEDS: LACTOBACILLUS ACIDOPHILUS CAP (BACID) PO SCH ×2 (09:29→17:42)
[2021-11-11] MEDS: GABAPENTIN 300 MG CAP PO SCH ×3 (09:29→20:32)
[2021-11-11] MEDS: INSULIN LISPRO (NovoLOG) PER UNIT SC SCH ×4 (09:29→20:31)
[2021-11-11] MEDS: LEVEMIR (INSULIN DETEMIR) 1 UNITS/0.01ML SC SCH ×2 (09:29→20:31)
[2021-11-11] MEDS: OMEPRAZOLE 20MG CAP PO SCH (09:29)
[2021-11-11] MEDS: SERTRALINE 100 MG TAB PO SCH (09:29)
[2021-11-11] MEDS: **hydrALAZINE** 50 MG TAB PO SCH ×3 (09:30→20:34)
[2021-11-11] MEDS: HEPARIN SOD (PORCINE) 5000UNITS/ML 1ML VIAL/SYRINGE SQ SCH ×2 (09:30→20:31)
[2021-11-11] MEDS ORDERED: PERCOCET 5MG/325MG TAB PO PRN (09:40)
[2021-11-11 14:00] VITALS: BP 98/53
[2021-11-11 14:10] VITALS: BP 114/62
[2021-11-11] MEDS: CIPROFLOXACIN 500MG TABLET PO SCH (17:42)
[2021-11-11] MEDS: ROSUVASTATIN 10 MG TAB (CRESTOR) PO SCH (20:32)
[2021-11-11 21:33] VITALS: BP 110/61
[2021-11-11] MEDS: metroNIDAZOLE (FLAGYL) 500MG TABLET PO SCH (23:50)
[2021-11-12] MEDS: CIPROFLOXACIN 500MG TABLET PO SCH (05:04)
[2021-11-12] MEDS: LEVOTHYROXINE 25MCG TABLET (0.025MG) PO SCH (05:04)
[2021-11-12 05:48] VITALS: BP 139/79
[2021-11-12 06:13] LABS: HEMATOCRIT 30.9 % (42.0-52.0); HEMOGLOBIN 10.8 g/dl (13.5-17.5); MEAN CORPUSCULAR HEMOGLOBIN 30.3 pg (27.0-33.0); MEAN CORPUSCULAR VOLUME 86.8 fl (80.0-96.0); PLATELET COUNT, AUTOMATED 235 10^3/uL (150-450); RED BLOOD COUNT 3.56 10^6/uL (4.30-6.10); WHITE BLOOD COUNT 9.3 10^3/uL (4.0-10.0)
[2021-11-12] MEDS: metroNIDAZOLE (FLAGYL) 500MG TABLET PO SCH (06:16)
[2021-11-12 06:44] LABS: ALBUMIN 3.1 GM/DL (3.2-5.2); BILIRUBIN,TOTAL 0.3 MG/DL (0.2-1.0); CALCIUM LEVEL 8.6 MG/DL (8.5-10.1); CREATININE FOR GFR 1.62 MG/DL (0.70-1.30); GLOMERULAR FILTRATION RATE 52.2 (>60)
[2021-11-12 08:31] VITALS: BP 139/79
[2021-11-12] MEDS: INSULIN LISPRO (NovoLOG) PER UNIT SC SCH (08:31)
[2021-11-12] MEDS: cloNIDine 0.1MG TABLET PO SCH (08:31)
[2021-11-12] MEDS: METOCLOPRAMIDE 5 MG TAB PO SCH (08:31)
[2021-11-12] MEDS: OMEPRAZOLE 20MG CAP PO SCH (08:31)
[2021-11-12] MEDS: LEVEMIR (INSULIN DETEMIR) 1 UNITS/0.01ML SC SCH (08:32)
[2021-11-12] MEDS: SERTRALINE 100 MG TAB PO SCH (08:32)
[2021-11-12] MEDS: GABAPENTIN 300 MG CAP PO SCH (08:32)
[2021-11-12] MEDS: DOCUSATE SODIUM 100MG CAPSULE PO SCH (08:32)
[2021-11-12] MEDS: LACTOBACILLUS ACIDOPHILUS CAP (BACID) PO SCH (08:32)
[2021-11-12] MEDS: NS 1,000 ML IV SCH (08:33)
[2021-11-12] MEDS: **hydrALAZINE** 50 MG TAB PO SCH (08:33)
[2021-11-12] MEDS: HEPARIN SOD (PORCINE) 5000UNITS/ML 1ML VIAL/SYRINGE SQ SCH (08:33)
[2021-11-12] MEDS ORDERED: LISI20TA33 PO (11:09)
[2021-11-12] MEDS ORDERED: SIME80TA16 PO (11:09)
[2021-11-12] MEDS ORDERED: CIPR-249 PO (11:09)
[2021-11-12] MEDS ORDERED: METR-265 PO (11:09)
== END 2021-11-12 12:26 | disposition home or self-care (01) | DRG 872 ==
LOC: EDBD 10:37 → M ED 10:37 → M ED INP 13:44 → ENRESERV 14:51 → M MSPAV 15:07
PROVIDERS: ADMIT Internal Medicine; ATTEND Internal Medicine
DX: A41.9 Sepsis, unspecified organism (principal); E87.1 Hypo-osmolality and hyponatremia; A09 Infectious gastroenteritis and colitis, unspecified; E11.43 Type 2 diabetes mellitus with diabetic autonomic (poly)neuropathy; K31.84 Gastroparesis; E11.319 Type 2 diabetes mellitus with unspecified diabetic retinopathy without macular edema; I12.9 Hypertensive chronic kidney disease with stage 1 through stage 4 chronic kidney disease, or unspecified chronic kidney disease; E78.5 Hyperlipidemia, unspecified; F32.A Depression, unspecified; K21.9 Gastro-esophageal reflux disease without esophagitis; E11.22 Type 2 diabetes mellitus with diabetic chronic kidney disease; E86.0 Dehydration; N18.30 Chronic kidney disease, stage 3 unspecified; E03.9 Hypothyroidism, unspecified; D50.9 Iron deficiency anemia, unspecified; Z79.4 Long term (current) use of insulin; Z79.890 Hormone replacement therapy; Z79.899 Other long term (current) drug therapy; Z88.8 Allergy status to other drugs, medicaments and biological substances

== ENCOUNTER → 2022-02-21 | Outpatient (CLI) | payer MEDICAID, MEDICARE ==
[~2022-02-21] MED LIST changes: +ALLO300T2 PO; +CARV6.25 PO; +CLON-412 PO; +ERGO500029 PO; -FENO134C16 PO; +FENO134C20 PO; +JARD1TAB PO; +LISI30TA4 PO; +METR-265 PO; +RA M500C PO; +ROSU5TAB5 PO; +SIME80TA16 PO; +TRAM50TA2 PO; +XALA0.007 OU
== END ==
LOC: M WHC 10:51
PROVIDERS: ATTEND Family Medicine
DX: S22.070S Wedge compression fracture of T9-T10 vertebra, sequela (principal); Z13.820 Encounter for screening for osteoporosis; M85.88 Other specified disorders of bone density and structure, other site

== ENCOUNTER 2022-03-15 17:59 | Observation (INO) | payer MEDICARE ==
[~2022-03-15] VITALS: Ht 182.9 cm; Wt 108.0 kg
[~2022-03-15 17:59] MED LIST changes: -ALLO300T2 PO; -CARV6.25 PO; -JARD1TAB PO; -LISI30TA4 PO; -RA M500C PO; -ROSU5TAB5 PO; -XALA0.007 OU
[2022-03-15] MEDS ORDERED: METOCLOPRAMIDE INJ 10MG/2ML VIAL IV ONE (18:10)
[2022-03-15] MEDS ORDERED: NS 1,000 ML IV ONE ×3 (18:10→20:50)
[2022-03-15] MEDS ORDERED: HALOPERIDOL 5MG/ML VIAL (J1630 PER 1) IV ONE ×2 (18:35→21:00)
[2022-03-15 18:43] LABS: BASO # 0.1 10^3/uL (0.0-0.2); BASO % 0.3 % (0.0-1.0); HEMATOCRIT 40.1 % (42.0-52.0); HEMOGLOBIN 14.4 g/dl (13.5-17.5); LYMPH # 0.7 10^3/uL (1.5-5.0); LYMPH % 3.5 % (24.0-44.0); MEAN CORPUSCULAR HEMOGLOBIN 29.6 pg (27.0-33.0); MEAN CORPUSCULAR HGB CONC 35.9 g/dl (32.0-36.5); MEAN CORPUSCULAR VOLUME 82.3 fl (80.0-96.0); MONO # 0.6 10^3/uL (0.0-0.8); MONO % 3.2 % (2.0-8.0); NEUTROPHILS # 18.4 10^3/uL (1.5-8.5); NEUTROPHILS % 92.2 % (36.0-66.0); PLATELET COUNT, AUTOMATED 284 10^3/uL (150-450); RED BLOOD COUNT 4.87 10^6/uL (4.30-6.10); WHITE BLOOD COUNT 19.9 10^3/uL (4.0-10.0)
[2022-03-15] MEDS ORDERED: cloNIDine 0.1MG TABLET PO ONE (18:45)
[2022-03-15] MEDS ORDERED: **hydrALAZINE** 50 MG TAB PO ONE (18:45)
[2022-03-15 18:53] LABS: LIPASE 25 U/L (12-53)
[2022-03-15 18:55] LABS: ALBUMIN 4.7 G/DL (3.2-5.2); ALKALINE PHOSPHATASE 68 U/L (46-116); ALT/SGPT 49 U/L (7.0-40); AST/SGOT 35 U/L (<34); BILIRUBIN,DIRECT 0.3 MG/DL (<0.4); BILIRUBIN,TOTAL 0.9 MG/DL (0.3-1.2); BLOOD UREA NITROGEN 27 MG/DL (9-23); CARBON DIOXIDE LEVEL 18 MMOL/L (20-31); CHLORIDE LEVEL 94 MMOL/L (98-107); CREATININE FOR GFR 1.28 MG/DL (0.70-1.30); GLOMERULAR FILTRATION RATE > 60.0 (>60); GLUCOSE, FASTING 341 MG/DL (60-100); SODIUM LEVEL 129 MMOL/L (136-145); TOTAL PROTEIN 7.9 G/DL (5.7-8.2)
[2022-03-15] MEDS ORDERED: HumuLIN R (REGULAR) INSULIN (NovoLIN R) **100U/ML** PER UNIT IV ONE (19:00)
[2022-03-15 19:07] LABS: VENOUS BASE EXCESS -3.9 (-2.0-2.0); VENOUS HCO3 20.6 MEQ/L (23.0-27.0); VENOUS O2 SATURATION 94.8 % (60.0-80.0); VENOUS PARTIAL PRESSURE CO2 36.1 mmHg (38.0-50.0); VENOUS PARTIAL PRESSURE O2 73.4 mmHg (30.0-50.0); VENOUS PH 7.374 UNITS (7.330-7.430); VENOUS STANDARD HCO3 21.2 MEQ/L; VENOUS TOTAL CO2 21.7 MEQ/L (24.0-28.0)
[2022-03-15 21:59] LABS: VENOUS BASE EXCESS -5.4 (-2.0-2.0); VENOUS HCO3 17.9 MEQ/L (23.0-27.0); VENOUS O2 SATURATION 98.3 % (60.0-80.0); VENOUS PARTIAL PRESSURE CO2 28.8 mmHg (38.0-50.0); VENOUS PARTIAL PRESSURE O2 140.9 mmHg (30.0-50.0); VENOUS PH 7.411 UNITS (7.330-7.430); VENOUS STANDARD HCO3 20.1 MEQ/L; VENOUS TOTAL CO2 18.8 MEQ/L (24.0-28.0)
[2022-03-15 22:31] LABS: BLOOD UREA NITROGEN 23 MG/DL (9-23); CALCIUM LEVEL 8.7 MG/DL (8.5-10.1); CARBON DIOXIDE LEVEL 18 MMOL/L (20-31); CHLORIDE LEVEL 99 MMOL/L (98-107); CREATININE FOR GFR 1.09 MG/DL (0.70-1.30); GLOMERULAR FILTRATION RATE > 60.0 (>60); GLUCOSE, FASTING 255 MG/DL (60-100); POTASSIUM SERUM 4.7 MMOL/L (3.5-5.1); SODIUM LEVEL 133 MMOL/L (136-145)
[2022-03-15] MEDS ORDERED: LISI30TA4 PO (23:46)
[2022-03-15] MEDS ORDERED: ALLO300T2 PO (23:46)
[2022-03-15] MEDS ORDERED: ROSU5TAB5 PO (23:46)
[2022-03-15] MEDS ORDERED: AMLO1TAB24 PO (23:48)
[2022-03-15] MEDS ORDERED: XALA0.007 OU (23:48)
[2022-03-15] MEDS ORDERED: CARV6.25 PO (23:48)
[2022-03-15] MEDS ORDERED: HOME MED LIST COMPLETE! XX SCH (23:50)
[2022-03-15 23:54] LABS: RSV AMPLIFICATION NEGATIVE (NEGATIVE)
[2022-03-16] MEDS ORDERED: NS 1,000 ML IV SCH (01:30)
[2022-03-16] MEDS ORDERED: GLUCOSE 4GM CHEW TABLET PO PRN (01:30)
[2022-03-16] MEDS ORDERED: DEXTROSE 50% 50 ML SYRINGE IV PRN (01:30)
[2022-03-16] MEDS ORDERED: ONDANSETRON 4MG 2ML VIAL IV PRN (01:30)
[2022-03-16] MEDS ORDERED: GLUCAGON INJ 1MG VIAL SC PRN (01:30)
[2022-03-16 02:54] VITALS: BP 186/88
[2022-03-16] MEDS: HYDROMORPHONE HCL 0.5 MG/ 0.5 ML SYRINGE (J1170 PER 1) IV PRN ×2 (04:32→08:29)
[2022-03-16] MEDS ORDERED: CARVedilol 6.25 MG TAB PO SCH ×2 (05:00→09:00)
[2022-03-16 05:15] VITALS: BP 132/79
[2022-03-16] MEDS ORDERED: LEVOTHYROXINE 25MCG TABLET (0.025MG) PO SCH (06:00)
[2022-03-16 07:31] LABS: BASO % 0.1 % (0.0-1.0); HEMATOCRIT 37.8 % (42.0-52.0); HEMOGLOBIN 13.3 g/dl (13.5-17.5); LYMPH # 0.8 10^3/uL (1.5-5.0); LYMPH % 4.5 % (24.0-44.0); MEAN CORPUSCULAR HEMOGLOBIN 29.9 pg (27.0-33.0); MEAN CORPUSCULAR HGB CONC 35.2 g/dl (32.0-36.5); MEAN CORPUSCULAR VOLUME 84.9 fl (80.0-96.0); MONO # 1.3 10^3/uL (0.0-0.8); MONO % 7.1 % (2.0-8.0); NEUTROPHILS # 16.1 10^3/uL (1.5-8.5); NEUTROPHILS % 87.8 % (36.0-66.0); PLATELET COUNT, AUTOMATED 276 10^3/uL (150-450); RED BLOOD COUNT 4.45 10^6/uL (4.30-6.10); WHITE BLOOD COUNT 18.4 10^3/uL (4.0-10.0)
[2022-03-16] MEDS: METOCLOPRAMIDE INJ 10MG/2ML VIAL IV SCH ×2 (07:50→12:27)
[2022-03-16] MEDS: INSULIN LISPRO (NovoLOG) PER UNIT SC SCH ×2 (07:51→12:28)
[2022-03-16 07:52] LABS: MAGNESIUM LEVEL 1.4 MG/DL (1.8-2.4)
[2022-03-16 07:54] LABS: BLOOD UREA NITROGEN 25 MG/DL (9-23); CALCIUM LEVEL 9.1 MG/DL (8.5-10.1); CARBON DIOXIDE LEVEL 21 MMOL/L (20-31); CHLORIDE LEVEL 99 MMOL/L (98-107); CREATININE FOR GFR 1.18 MG/DL (0.70-1.30); GLOMERULAR FILTRATION RATE > 60.0 (>60); GLUCOSE, FASTING 293 MG/DL (60-100); POTASSIUM SERUM 4.4 MMOL/L (3.5-5.1); SODIUM LEVEL 134 MMOL/L (136-145)
[2022-03-16 08:31] VITALS: BP 200/80
[2022-03-16] MEDS ORDERED: METO5TAB2 PO (08:45)
[2022-03-16] MEDS ORDERED: JARD1TAB PO (08:45)
[2022-03-16] MEDS ORDERED: lisinopriL 40MG TAB PO SCH (09:00)
[2022-03-16] MEDS ORDERED: allopurinoL 300 MG TAB PO SCH (09:00)
[2022-03-16] MEDS ORDERED: amLODIPine 5 MG TAB PO SCH (09:00)
[2022-03-16] MEDS ORDERED: FERROUS SULFATE 325MG TAB PO SCH (09:00)
[2022-03-16] MEDS ORDERED: PANTOPRAZOLE 40MG VIAL IV SCH (09:00)
[2022-03-16] MEDS ORDERED: SERTRALINE 100 MG TAB PO SCH (09:00)
[2022-03-16] MEDS ORDERED: cloNIDine 0.1MG TABLET PO SCH (09:00)
[2022-03-16] MEDS ORDERED: GABAPENTIN 300 MG CAP PO SCH (09:00)
[2022-03-16 10:19] VITALS: BP_SYST 152; BP_SYST 170; BP_DIAS 104; BP_DIAS 91
[2022-03-16] MEDS ORDERED: ISOVUE-370 76% 100ML VIAL As Ordered ONE (10:25)
[2022-03-16 12:07] VITALS: BP 132/82
[2022-03-16] MEDS ORDERED: RA M500C PO (13:02)
[2022-03-16 14:00] VITALS: BP 154/91
[2022-03-16] MEDS ORDERED: MAG SULF 1GM/100ML (MAG RUN) 1 GM in IV 1 EA IV ONE (14:00)
[2022-03-16] MEDS ORDERED: FENOFIBRATE 145MG TABLET (TRICOR) PO SCH (21:00)
[2022-03-16] MEDS ORDERED: LATANOPROST 0.005% OPHTH SOLN 2.5 ML OU SCH (21:00)
[2022-03-16] MEDS ORDERED: ROSUVASTATIN 10 MG TAB (CRESTOR) PO SCH (21:00)
[2022-03-16] MEDS ORDERED: LEVEMIR (INSULIN DETEMIR) 1 UNITS/0.01ML SC SCH (21:00)
[2022-03-17] MEDS ORDERED: FERROUS SULFATE 325MG TAB PO SCH (09:00)
== END 2022-03-16 17:36 | disposition home or self-care (01) ==
LOC: M ED 17:59 → EDBD 17:59 → M ED INP 18:00 → ENRESERV 03-16 02:01 → M MSPAV 03-16 02:54
PROVIDERS: ADMIT Internal Medicine; ATTEND Internal Medicine
DX: R11.15 Cyclical vomiting syndrome unrelated to migraine (principal); F12.10 Cannabis abuse, uncomplicated; E11.10 Type 2 diabetes mellitus with ketoacidosis without coma; R63.0 Anorexia; D72.829 Elevated white blood cell count, unspecified; E87.1 Hypo-osmolality and hyponatremia; K52.9 Noninfective gastroenteritis and colitis, unspecified; E83.42 Hypomagnesemia; I10 Essential (primary) hypertension; E78.5 Hyperlipidemia, unspecified; N28.9 Disorder of kidney and ureter, unspecified; K21.9 Gastro-esophageal reflux disease without esophagitis; M10.9 Gout, unspecified; Z87.19 Personal history of other diseases of the digestive system; F32.A Depression, unspecified; D64.9 Anemia, unspecified; E03.9 Hypothyroidism, unspecified; E11.40 Type 2 diabetes mellitus with diabetic neuropathy, unspecified; Z79.899 Other long term (current) drug therapy; Z79.84 Long term (current) use of oral hypoglycemic drugs; Z79.4 Long term (current) use of insulin; Z88.8 Allergy status to other drugs, medicaments and biological substances
CPT/HCPCS: 36415; 74177; 80048; 80076; 82010; 82803; 83690; 83735; 85025; 85652; 86140; 87631; 96361; 96374; 96375; 96376; 99285; C9113; G0378; J1170; J1630; J1815; J2405; J2765; J3475; Q9967

== ENCOUNTER → 2022-04-11 | Outpatient (CLI) | payer MEDICARE, OTHER ==
[~2022-04-11] MED LIST changes: +ALLO300T2 PO; +CARV6.25 PO; +JARD1TAB PO; +LISI30TA4 PO; +RA M500C PO; +ROSU5TAB5 PO; +XALA0.007 OU
== END ==
LOC: M PLALAB 11:04
PROVIDERS: ATTEND Family Medicine
DX: E11.43 Type 2 diabetes mellitus with diabetic autonomic (poly)neuropathy (principal); E83.42 Hypomagnesemia

== ENCOUNTER → 2022-04-15 | Outpatient (REF) | payer MEDICARE, OTHER, MEDICAID ==
[~2022-04-15] MED LIST changes: -FENO200C19 PO; +FENO200C24 PO
== END ==
LOC: M SFHCPLAZ 13:46
PROVIDERS: ATTEND Family Medicine
DX: Z53.9 Procedure and treatment not carried out, unspecified reason (principal)

== ENCOUNTER → 2022-08-13 | Outpatient (CLI) | payer MEDICARE, OTHER ==
[2022-08-13 15:42] LABS: ALBUMIN 4.3 G/DL (3.2-5.2); ALKALINE PHOSPHATASE 56 U/L (46-116); ALT/SGPT 30 U/L (7.0-40); AST/SGOT 21 U/L (<34); BILIRUBIN,TOTAL 0.4 MG/DL (0.3-1.2); BLOOD UREA NITROGEN 48 MG/DL (9-23); CALCIUM LEVEL 9.4 MG/DL (8.5-10.1); CARBON DIOXIDE LEVEL 22 MMOL/L (20-31); CHLORIDE LEVEL 100 MMOL/L (98-107); CHOLESTEROL LEVEL 201 MG/DL (<200); CHOLESTEROL RISK RATIO 8.58 (<5); CREATININE FOR GFR 1.89 MG/DL (0.70-1.30); GLOMERULAR FILTRATION RATE 43.4 (>60); GLUCOSE, FASTING 266 MG/DL (60-100); HDL CHOLESTEROL 23.4 MG/DL (>40); NON-HDL-C 177.6 MG/DL; POTASSIUM SERUM 5.3 MMOL/L (3.5-5.1); SODIUM LEVEL 133 MMOL/L (136-145); TOTAL PROTEIN 7.2 G/DL (5.7-8.2); TRIGLYCERIDES LEVEL 681 MG/DL (<150)
[2022-08-13 15:46] LABS: TOTAL 25(OH) VITAMIN D 24.7 NG/ML (20.0-100.0)
[2022-08-13 16:20] LABS: HEPATITIS C VIRUS ABY INDEX < 0.0 INDEX (<0.8)
== END ==
LOC: M PLALAB 11:14
PROVIDERS: ATTEND Family Medicine
DX: E78.1 Pure hyperglyceridemia (principal); E78.5 Hyperlipidemia, unspecified; I10 Essential (primary) hypertension; E55.9 Vitamin D deficiency, unspecified; Z11.9 Encounter for screening for infectious and parasitic diseases, unspecified

== ENCOUNTER → 2022-09-03 | Outpatient (CLI) | payer MEDICARE, OTHER | LOC: M SLEEP HO 10:58 | PROVIDERS: ATTEND Family Medicine | DX: I10 Essential (primary) hypertension (principal) ==

== ENCOUNTER → 2022-12-22 | Outpatient (REF) | payer MEDICARE, OTHER, MEDICAID ==
[~2022-12-22] MED LIST changes: +DICY-61 PO; -DICY10CA13 PO; -GABA-283 PO; +GABA-284 PO
[2022-12-22 13:55] LABS: FREE T4 1.23 NG/DL (0.89-1.76)
[2022-12-22 13:56] LABS: THYROID STIMULATING HORMONE 1.745 uIU/ML (0.55-4.78)
[2022-12-22 14:17] LABS: CHOLESTEROL LEVEL 233 MG/DL (<200); CHOLESTEROL RISK RATIO 9.91 (<5); HDL CHOLESTEROL 23.5 MG/DL (>40); NON-HDL-C 209.5 MG/DL; TRIGLYCERIDES LEVEL 1481 MG/DL (<150)
== END ==
LOC: M SFHCPLAZ 13:10
PROVIDERS: ATTEND Family Medicine
DX: E03.9 Hypothyroidism, unspecified (principal)

== ENCOUNTER → 2023-06-11 | Outpatient (CLI) | payer MEDICARE, OTHER ==
[~2023-06-11] MED LIST changes: -HYDR-3911 PO; -HYDR50TA PO; +HYDR50TA46 PO; +HYDR50TA47 PO
[2023-06-11 13:14] LABS: FERRITIN 93.9 NG/ML (10.5-307.3); TOTAL 25(OH) VITAMIN D 35.3 NG/ML (20.0-100.0)
[2023-06-11 13:24] LABS: HEMATOCRIT 41.2 % (42.0-52.0); HEMOGLOBIN 14.4 g/dl (13.5-17.5); MEAN CORPUSCULAR HEMOGLOBIN 30.2 pg (27.0-33.0); MEAN CORPUSCULAR VOLUME 86.4 fl (80.0-96.0); PLATELET COUNT, AUTOMATED 233 10^3/uL (150-450); RED BLOOD COUNT 4.77 10^6/uL (4.30-6.10); WHITE BLOOD COUNT 13.2 10^3/uL (4.0-10.0)
[2023-06-11 13:28] LABS: HEMOGLOBIN A1c 8.3 % (4.0-6.0)
[2023-06-11 13:32] LABS: ALKALINE PHOSPHATASE 54 U/L (46-116); ALT/SGPT 37 U/L (7.0-40); AST/SGOT 25 U/L (<34); BILIRUBIN,TOTAL 0.2 MG/DL (0.3-1.2); BLOOD UREA NITROGEN 47 MG/DL (9-23); CALCIUM LEVEL 9.5 MG/DL (8.5-10.1); CARBON DIOXIDE LEVEL 22 MMOL/L (20-31); CHLORIDE LEVEL 102 MMOL/L (98-107); CHOLESTEROL LEVEL 173 MG/DL (<200); CHOLESTEROL RISK RATIO 9.55 (<5); CREATININE FOR GFR 1.97 MG/DL (0.70-1.30); GLOMERULAR FILTRATION RATE 41.2 (>60); GLUCOSE, FASTING 360 MG/DL (60-100); HDL CHOLESTEROL 18.1 MG/DL (>40); NON-HDL-C 154.9 MG/DL; POTASSIUM SERUM 5.6 MMOL/L (3.5-5.1); SODIUM LEVEL 133 MMOL/L (136-145); TOTAL PROTEIN 7.1 G/DL (5.7-8.2); TRIGLYCERIDES LEVEL 1412 MG/DL (<150)
== END ==
LOC: M PLALAB 10:12
PROVIDERS: ATTEND Family Medicine
DX: D50.8 Other iron deficiency anemias (principal); E78.5 Hyperlipidemia, unspecified; E78.1 Pure hyperglyceridemia; I10 Essential (primary) hypertension; E55.9 Vitamin D deficiency, unspecified; E11.22 Type 2 diabetes mellitus with diabetic chronic kidney disease

== ENCOUNTER → 2023-08-27 | Outpatient (REF) | payer MEDICARE, OTHER, MEDICAID ==
[~2023-08-27] MED LIST changes: -ROSU10TA6 PO; +ROSU10TA61 PO; +ROSU5TAB40 PO; -ROSU5TAB5 PO
[2023-08-27 18:31] LABS: FREE T4 1.18 NG/DL (0.89-1.76); THYROID STIMULATING HORMONE 1.225 uIU/ML (0.55-4.78)
== END ==
LOC: M LAB REF 17:28
PROVIDERS: ATTEND Internal Medicine Nephrology
DX: E03.9 Hypothyroidism, unspecified (principal)

== ENCOUNTER → 2024-05-13 | Outpatient (CLI) | payer MEDICARE, MEDICAID ==
[~2024-05-13] MED LIST changes: +GABA-1172 PO; -GABA-282 PO; +METF-1156 PO; -METF-817 PO; +ONDA-282 PO; -ONDA4TAB6 PO; -ROSU5TAB40 PO; +ROSU5TAB49 PO
[2024-05-13 13:48] LABS: HEMOGLOBIN 12.8 g/dl (13.5-17.5); MEAN CORPUSCULAR HEMOGLOBIN 30.1 pg (27.0-33.0); MEAN CORPUSCULAR HGB CONC 33.7 g/dl (32.0-36.5); MEAN CORPUSCULAR VOLUME 89.4 fl (80.0-96.0); PLATELET COUNT, AUTOMATED 270 10^3/uL (150-450); RED BLOOD COUNT 4.25 10^6/uL (4.30-6.10); WHITE BLOOD COUNT 13.4 10^3/uL (4.0-10.0)
[2024-05-13 13:52] LABS: ALBUMIN 3.7 G/DL (3.2-5.2); ALKALINE PHOSPHATASE 67 U/L (40-129); ALT/SGPT 30 U/L (7.0-40); AST/SGOT 17 U/L (<34); BILIRUBIN,TOTAL < 0.2 MG/DL (0.3-1.2); BLOOD UREA NITROGEN 82 MG/DL (9-23); CALCIUM LEVEL 9.2 MG/DL (8.5-10.1); CARBON DIOXIDE LEVEL 19 MMOL/L (20-31); CHLORIDE LEVEL 102 MMOL/L (98-107); CHOLESTEROL LEVEL 208 MG/DL (<200); CHOLESTEROL RISK RATIO 10.45 (<5); CREATININE FOR GFR 2.63 MG/DL (0.70-1.30); FERRITIN 163.7 NG/ML (10.5-307.3); GLOMERULAR FILTRATION RATE 29.3 (>60); GLUCOSE, FASTING 326 MG/DL (60-100); HDL CHOLESTEROL 19.9 MG/DL (>40); NON-HDL-C 188.1 MG/DL; SODIUM LEVEL 135 MMOL/L (136-145); TOTAL 25(OH) VITAMIN D 20.7 NG/ML (20.0-100.0); TRIGLYCERIDES LEVEL 1782 MG/DL (<150)
[2024-05-13 14:18] LABS: HEMOGLOBIN A1c 8.7 % (4.0-6.0)
== END ==
LOC: M PLALAB 11:04
PROVIDERS: ATTEND Family Medicine
DX: D50.8 Other iron deficiency anemias (principal); I10 Essential (primary) hypertension; E11.22 Type 2 diabetes mellitus with diabetic chronic kidney disease

== ENCOUNTER 2024-07-31 11:50 | Emergency (ER) | payer MEDICARE, MEDICAID ==
[~2024-07-31] VITALS: Ht 182.9 cm; Wt 122.7 kg
[2024-07-31 13:04] LABS: VENOUS BASE EXCESS -4.4 (-2.0-2.0); VENOUS HCO3 20.5 MMOL/L (23.0-27.0); VENOUS O2 SATURATION 84.8 % (60.0-80.0); VENOUS PARTIAL PRESSURE CO2 37.7 mmHg (38.0-50.0); VENOUS PARTIAL PRESSURE O2 49.3 mmHg (30.0-50.0); VENOUS PH 7.353 UNITS (7.330-7.430); VENOUS STANDARD HCO3 20.5 MMOL/L; VENOUS TOTAL CO2 21.6 MMOL/L (24.0-28.0)
[2024-07-31] MEDS: ONDANSETRON 4MG 2ML VIAL IV ONE (13:06)
[2024-07-31] MEDS: NS (Normal Saline) 0.9% 1,000 ML IV ONE ×2 (13:06→20:24)
[2024-07-31 13:22] LABS: BASO # 0.1 10^3/uL (0.0-0.2); BASO % 0.6 % (0.0-1.0); EOS # 0.1 10^3/uL (0.0-0.5); EOS % 0.4 % (0.0-3.0); HEMATOCRIT 50.3 % (42.0-52.0); LYMPH # 1.1 10^3/uL (1.5-5.0); LYMPH % 5.1 % (24.0-44.0); MEAN CORPUSCULAR HEMOGLOBIN 27.8 pg (27.0-33.0); MEAN CORPUSCULAR HGB CONC 33.8 g/dl (32.0-36.5); MEAN CORPUSCULAR VOLUME 82.3 fl (80.0-96.0); MONO # 0.4 10^3/uL (0.0-0.8); MONO % 2.1 % (2.0-8.0); NEUTROPHILS # 19.2 10^3/uL (1.5-8.5); NEUTROPHILS % 91.1 % (36.0-66.0); PLATELET COUNT, AUTOMATED 314 10^3/uL (150-450); RED BLOOD COUNT 6.11 10^6/uL (4.30-6.10); WHITE BLOOD COUNT 21.1 10^3/uL (4.0-10.0)
[2024-07-31 13:36] LABS: ACETONE/KETONE 1.49 MMOL/L (0.02-0.27); ALBUMIN 4.6 G/DL (3.2-5.2); BILIRUBIN,DIRECT 0.2 MG/DL (<0.4); BILIRUBIN,TOTAL 0.7 MG/DL (0.3-1.2); TOTAL PROTEIN 8.7 G/DL (5.7-8.2)
[2024-07-31 13:41] LABS: HEMOGLOBIN A1c 8.1 % (4.0-6.0)
[2024-07-31 13:57] LABS: CALCIUM LEVEL 10.2 MG/DL (8.5-10.1); CREATININE FOR GFR 1.54 MG/DL (0.70-1.30); GLOMERULAR FILTRATION RATE 59.2 (>60); POTASSIUM SERUM 5.3 MMOL/L (3.5-5.1)
[2024-07-31] MEDS: HALOPERIDOL LACTATE 5MG/ML VIAL IV ONE (14:17)
[2024-07-31] MEDS: diphenhydrAMINE 50MG/ML VIAL IV ONE (14:17)
[2024-07-31 15:03] LABS: KETONE, URINE AUTO RFX TRACE mg/dL (NEGATIVE); LEUKOCYTE ESTERASE UR AUTO RFX NEGATIVE (NEGATIVE); NITRITE, URINE AUTO RFX NEGATIVE (NEGATIVE); RBC, URINE AUTO RFX 0 /HPF (0-3); SQUAM EPITHELIAL CELL UR AURFX 0 /HPF (0-6); WBC, URINE AUTO RFX 0 /HPF (0-3)
[2024-07-31] MEDS ORDERED: ISOVUE-370 76% 100ML VIAL As Ordered ONE (15:43)
[2024-07-31 17:54] LABS: VENOUS BASE EXCESS -6.3 (-2.0-2.0); VENOUS HCO3 18.8 MMOL/L (23.0-27.0); VENOUS O2 SATURATION 90.1 % (60.0-80.0); VENOUS PARTIAL PRESSURE CO2 36.2 mmHg (38.0-50.0); VENOUS PH 7.333 UNITS (7.330-7.430); VENOUS STANDARD HCO3 19.3 MMOL/L; VENOUS TOTAL CO2 19.9 MMOL/L (24.0-28.0)
[2024-07-31] MEDS: KETOROLAC 30 MG/ML 1ML VIAL IV ONE (18:09)
[2024-07-31 18:24] LABS: CALCIUM LEVEL 9.9 MG/DL (8.5-10.1); CREATININE FOR GFR 1.48 MG/DL (0.70-1.30); GLOMERULAR FILTRATION RATE 62.1 (>60); POTASSIUM SERUM 4.6 MMOL/L (3.5-5.1)
[2024-07-31 18:27] LABS: ACETONE/KETONE 2.04 MMOL/L (0.02-0.27)
[2024-07-31] MEDS: MORPHINE 4 MG/ML 1ML VIAL IV ONE (19:44)
[2024-07-31] MEDS: cloNIDine 0.1MG TABLET PO ONE (22:11)
[2024-07-31] MEDS: amLODIPine 5 MG TAB PO ONE (22:11)
[2024-07-31 22:12] VITALS: BP 185/85
[2024-07-31] MEDS: CARVedilol 6.25 MG TAB PO ONE (22:12)
[2024-07-31] MEDS ORDERED: ONDA-282 PO (23:20)
[2024-07-31 23:30] VITALS: BP 151/84; TEMP 98.1; O2SAT 99
== END 2024-07-31 23:57 | disposition home or self-care (01) ==
LOC: M ED 11:50 → EDBD 11:50 → M ED 23:57
DX: A09 Infectious gastroenteritis and colitis, unspecified (principal); R00.0 Tachycardia, unspecified; I45.81 Long QT syndrome; E11.9 Type 2 diabetes mellitus without complications; I12.9 Hypertensive chronic kidney disease with stage 1 through stage 4 chronic kidney disease, or unspecified chronic kidney disease; E78.5 Hyperlipidemia, unspecified; D50.9 Iron deficiency anemia, unspecified; F12.10 Cannabis abuse, uncomplicated; Z88.8 Allergy status to other drugs, medicaments and biological substances; Z79.4 Long term (current) use of insulin; Z79.899 Other long term (current) drug therapy
CPT/HCPCS: 74177; 80047; 80048; 80076; 81001; 82010; 82803; 83036; 83605; 83690; 83930; 85025; 87324; 87507; 93005; 93041; 94760; 96374; 96375; 99285; J1200; J1630; J1885; J2405; Q9967

== ENCOUNTER → 2024-08-12 | Outpatient (CLI) | payer MEDICARE, MEDICAID ==
[2024-08-12 13:29] LABS: HEMATOCRIT 41.4 % (42.0-52.0); HEMOGLOBIN 13.6 g/dl (13.5-17.5); MEAN CORPUSCULAR HGB CONC 32.9 g/dl (32.0-36.5); MEAN CORPUSCULAR VOLUME 85.4 fl (80.0-96.0); PLATELET COUNT, AUTOMATED 337 10^3/uL (150-450); RED BLOOD COUNT 4.85 10^6/uL (4.30-6.10); WHITE BLOOD COUNT 14.1 10^3/uL (4.0-10.0)
[2024-08-12 13:49] LABS: HEMOGLOBIN A1c 8.7 % (4.0-6.0)
[2024-08-12 13:57] LABS: IRON (FE) 80 UG/DL (65-175); PERCENT SATURATION 25.2 % (19.7-50.0); TOTAL IRON BINDING CAPACITY 318 UG/DL (250-425)
[2024-08-12 14:07] LABS: ALBUMIN 3.7 G/DL (3.2-5.2); ALKALINE PHOSPHATASE 60 U/L (40-129); ALT/SGPT 42 U/L (7.0-40); AST/SGOT 35 U/L (<34); BILIRUBIN,TOTAL 0.2 MG/DL (0.3-1.2); BLOOD UREA NITROGEN 33 MG/DL (9-23); CALCIUM LEVEL 8.9 MG/DL (8.5-10.1); CARBON DIOXIDE LEVEL 21 MMOL/L (20-31); CHLORIDE LEVEL 101 MMOL/L (98-107); CHOLESTEROL LEVEL 188 MG/DL (<200); CHOLESTEROL RISK RATIO 7.96 (<5); CREATININE FOR GFR 1.64 MG/DL (0.70-1.30); FERRITIN 174.7 NG/ML (10.5-307.3); GLOMERULAR FILTRATION RATE 54.9 (>60); GLUCOSE, FASTING 398 MG/DL (60-100); HDL CHOLESTEROL 23.6 MG/DL (>40); NON-HDL-C 164.4 MG/DL; POTASSIUM SERUM 5.2 MMOL/L (3.5-5.1); PTH INTACT 51.8 PG/ML (18.5-88.0); SODIUM LEVEL 130 MMOL/L (136-145); THYROID STIMULATING HORMONE 2.691 uIU/ML (0.55-4.78); TOTAL PROTEIN 6.6 G/DL (5.7-8.2); TRIGLYCERIDES LEVEL 1419 MG/DL (<150)
== END ==
LOC: M PLALAB 10:43
PROVIDERS: ATTEND Family Medicine
DX: S22.070S Wedge compression fracture of T9-T10 vertebra, sequela (principal); D50.8 Other iron deficiency anemias; E78.5 Hyperlipidemia, unspecified; E78.1 Pure hyperglyceridemia; I10 Essential (primary) hypertension; E03.9 Hypothyroidism, unspecified; E11.22 Type 2 diabetes mellitus with diabetic chronic kidney disease; E55.9 Vitamin D deficiency, unspecified

== ENCOUNTER → 2024-11-28 | Outpatient (CLI) | payer MEDICARE, MEDICAID ==
[2024-11-28 11:42] LABS: RHEUMATOID FACTOR QUANT 4.4 IU/ML (<14)
[2024-11-30 15:57] LABS: ANGIOTENSIN 1 CONVERTING ENZYM 9 U/L (9-67)
== END ==
LOC: M PLALAB 09:14
PROVIDERS: ATTEND Ophthalmology
DX: H30.92 Unspecified chorioretinal inflammation, left eye (principal)

== ENCOUNTER 2024-12-09 16:09 | Emergency (ER) | payer MEDICARE, MEDICAID ==
[2024-12-09] MEDS: NS (Normal Saline) 0.9% 1,000 ML IV ONE (16:46)
[2024-12-09] MEDS: KETOROLAC 30 MG/ML 1 ML VIAL IV ONE (16:46)
[2024-12-09 17:09] VITALS: BP 145/82; TEMP 97; O2SAT 98
[2024-12-09 17:13] LABS: BASO # 0.1 10^3/uL (0.0-0.2); BASO % 0.5 % (0.0-1.0); EOS # 0.0 10^3/uL (0.0-0.5); EOS % 0.2 % (0.0-3.0); LYMPH # 0.9 10^3/uL (1.5-5.0); LYMPH % 4.6 % (24.0-44.0); MONO # 0.5 10^3/uL (0.0-0.8); MONO % 2.2 % (2.0-8.0); NEUTROPHILS # 18.9 10^3/uL (1.5-8.5); NEUTROPHILS % 91.8 % (36.0-66.0); PLATELET COUNT, AUTOMATED 283 10^3/uL (150-450)
[2024-12-09 17:55] LABS: AMPHETAMINES LEVEL URINE NEGATIVE (NEGATIVE); BARBITURATES URINE NEGATIVE (NEGATIVE); BENZODIAZEPINES URINE NEGATIVE (NEGATIVE); COCAINE METABOLITE URINE NEGATIVE (NEGATIVE)
[2024-12-09 17:56] LABS: METHADONE URINE NEGATIVE (NEGATIVE); OPIATES URINE NEGATIVE (NEGATIVE); PHENCYCLIDINE URINE NEGATIVE (NEGATIVE)
[2024-12-09 18:05] LABS: ALT/SGPT 51.0 U/L (7.0-40); AST/SGOT 37.0 U/L (<34); CALCIUM LEVEL 10.4 MG/DL (8.5-10.1); CARBON DIOXIDE LEVEL 19.0 MMOL/L (20-31); CHLORIDE LEVEL 99.0 MMOL/L (98-107); CREATININE FOR GFR 1.49 MG/DL (0.70-1.30); GLOMERULAR FILTRATION RATE 61.6 (>60); POTASSIUM SERUM 5.2 MMOL/L (3.5-5.1); SODIUM LEVEL 134.0 MMOL/L (136-145)
[2024-12-09 18:05] LABS: CANNABINOIDS URINE POSITIVE (NEGATIVE)
[2024-12-10] MEDS ORDERED: TRES1INJ (14:12)
== END 2024-12-09 17:24 | disposition left against medical advice (07) ==
LOC: M ED 16:09
DX: R11.10 Vomiting, unspecified (principal); E11.9 Type 2 diabetes mellitus without complications; K21.9 Gastro-esophageal reflux disease without esophagitis; I10 Essential (primary) hypertension; E03.9 Hypothyroidism, unspecified; F12.10 Cannabis abuse, uncomplicated; Z88.8 Allergy status to other drugs, medicaments and biological substances; Z79.4 Long term (current) use of insulin; Z79.899 Other long term (current) drug therapy; Z53.9 Procedure and treatment not carried out, unspecified reason
CPT/HCPCS: 80053; 80307; 83690; 85025; 96374; 99284; J1885; J2765

== ENCOUNTER 2024-12-10 13:13 | Emergency (ER) | payer MEDICARE, MEDICAID ==
[~2024-12-10] VITALS: Ht 182.9 cm; Wt 111.7 kg
[2024-12-10 13:38] LABS: BASO # 0.0 10^3/uL (0.0-0.2); BASO % 0.1 % (0.0-1.0); EOS # 0.0 10^3/uL (0.0-0.5); EOS % 0.0 % (0.0-3.0); LYMPH # 0.9 10^3/uL (1.5-5.0); LYMPH % 4.4 % (24.0-44.0); MONO # 1.0 10^3/uL (0.0-0.8); MONO % 4.7 % (2.0-8.0); NEUTROPHILS # 18.9 10^3/uL (1.5-8.5); NEUTROPHILS % 90.1 % (36.0-66.0); PLATELET COUNT, AUTOMATED 349 10^3/uL (150-450)
[2024-12-10 14:04] LABS: CALCIUM LEVEL 10.2 MG/DL (8.5-10.1); CARBON DIOXIDE LEVEL 18.0 MMOL/L (20-31); CHLORIDE LEVEL 103.0 MMOL/L (98-107); CREATININE FOR GFR 1.84 MG/DL (0.70-1.30); GLOMERULAR FILTRATION RATE 47.8 (>60); POTASSIUM SERUM 4.7 MMOL/L (3.5-5.1); SODIUM LEVEL 139.0 MMOL/L (136-145)
[2024-12-10] MEDS ORDERED: TRES1INJ (14:12)
[2024-12-10] MEDS: NS (Normal Saline) 0.9% 1,000 ML IV ONE (14:27)
[2024-12-10 14:30] LABS: AMPHETAMINES LEVEL URINE NEGATIVE (NEGATIVE); BARBITURATES URINE NEGATIVE (NEGATIVE); BENZODIAZEPINES URINE NEGATIVE (NEGATIVE); COCAINE METABOLITE URINE NEGATIVE (NEGATIVE); METHADONE URINE NEGATIVE (NEGATIVE); OPIATES URINE NEGATIVE (NEGATIVE); PHENCYCLIDINE URINE NEGATIVE (NEGATIVE)
[2024-12-10 14:31] LABS: CANNABINOIDS URINE POSITIVE (NEGATIVE)
[2024-12-10 14:34] LABS: VENOUS BASE EXCESS -5.0 (-2.0-2.0); VENOUS HCO3 18.9 MMOL/L (23.0-27.0); VENOUS O2 SATURATION 88.7 % (60.0-80.0); VENOUS PARTIAL PRESSURE CO2 32.2 mmHg (38.0-50.0); VENOUS PARTIAL PRESSURE O2 55.4 mmHg (30.0-50.0); VENOUS PH 7.386 UNITS (7.330-7.430); VENOUS STANDARD HCO3 20.2 MMOL/L; VENOUS TOTAL CO2 19.9 MMOL/L (24.0-28.0)
[2024-12-10 15:00] VITALS: BP 139/75; TEMP 98.6; O2SAT 95
[2024-12-10 15:09] LABS: ALT/SGPT 35.0 U/L (7.0-40); AST/SGOT 16.0 U/L (<34)
[2024-12-10 15:10] LABS: ACETONE/KETONE 2.0 MMOL/L (0.02-0.27)
[2024-12-10] MEDS ORDERED: NS (Normal Saline) 0.9% 1,000 ML IV ONE (15:35)
== END 2024-12-10 15:55 | disposition left against medical advice (07) ==
LOC: EDBD 13:13 → M ED 13:13
DX: E11.43 Type 2 diabetes mellitus with diabetic autonomic (poly)neuropathy (principal); R00.0 Tachycardia, unspecified; I45.81 Long QT syndrome; I44.4 Left anterior fascicular block; E78.5 Hyperlipidemia, unspecified; I12.9 Hypertensive chronic kidney disease with stage 1 through stage 4 chronic kidney disease, or unspecified chronic kidney disease; F12.10 Cannabis abuse, uncomplicated; Z88.8 Allergy status to other drugs, medicaments and biological substances; Z79.4 Long term (current) use of insulin; Z79.899 Other long term (current) drug therapy; Z53.9 Procedure and treatment not carried out, unspecified reason
CPT/HCPCS: 80047; 80048; 80076; 80307; 82010; 82803; 83690; 85025; 93005; 96361; 96374; 99284; J2765

== ENCOUNTER → 2025-01-17 | Outpatient (CLI) | payer MEDICARE, MEDICAID ==
[~2025-01-17] MED LIST changes: +TRES1INJ
== END ==
LOC: M SOG 07:22
PROVIDERS: ATTEND Physician Assistant
DX: M25.521 Pain in right elbow (principal)

== ENCOUNTER → 2025-02-22 | Outpatient (CLI) | payer MEDICARE, MEDICAID ==
[~2025-02-22] MED LIST changes: -ROSU10TA61 PO; +ROSU10TA90 PO
[2025-02-22 13:57] LABS: TOTAL 25(OH) VITAMIN D 31.4 NG/ML (20.0-100.0)
[2025-02-22 14:17] LABS: ESTIMATED AVERAGE GLUCOSE 183.0 MG/DL (60-110)
[2025-02-22 14:25] LABS: ALT/SGPT 38 U/L (7.0-40); AST/SGOT 27 U/L (<34); CALCIUM LEVEL 10.0 MG/DL (8.5-10.1); CARBON DIOXIDE LEVEL 23 MMOL/L (20-31); CHLORIDE LEVEL 100 MMOL/L (98-107); CHOLESTEROL LEVEL 196 MG/DL (<200); CHOLESTEROL RISK RATIO 8.90 (<5); CREATININE FOR GFR 1.99 MG/DL (0.70-1.30); GLOMERULAR FILTRATION RATE 43.5 (>60); NON-HDL-C 174.0 MG/DL; POTASSIUM SERUM 5.3 MMOL/L (3.5-5.1); SODIUM LEVEL 136 MMOL/L (136-145); TRIGLYCERIDES LEVEL 1492 MG/DL (<150)
== END ==
LOC: M PLALAB 10:00
PROVIDERS: ATTEND Family Medicine
DX: E11.22 Type 2 diabetes mellitus with diabetic chronic kidney disease (principal); E55.9 Vitamin D deficiency, unspecified; I10 Essential (primary) hypertension; M1A.0710 Idiopathic chronic gout, right ankle and foot, without tophus (tophi); E78.1 Pure hyperglyceridemia